=== PATIENT | male | born 1960 | race Caucasian/White ===

== ENCOUNTER 2018-09-27 00:28 | Emergency (ER) | payer SELFPAY ==
[2018-09-27 00:54] VITALS: BP 141/85
[2018-09-27] MEDS ORDERED: Ketorolac 60 MG/2 ML SDV IM ONE (00:59)
--- NOTE | 2018-09-27 01:03 | EDM.PDOC ---
ED HPI GENERAL MEDICAL PROBLEM - General Chief Complaint: Upper Extremity Injury/Pain Stated Complaint: FELL ON LEFT SHOULDER Time Seen by Provider: 09/27/18 00:57 Source of Information: Reports: Patient, RN Notes Reviewed History Limitations: Reports: No Limitations - History of Present Illness INITIAL COMMENTS - FREE TEXT/NARRATIVE: 58-year-old gentleman presents emergency department today following a fall on ice he landed on his left shoulder is now experiencing pain with any movement of his shoulder at all Left Shoulder Pain Score (Numeric/FACES): 10 - Related Data Allergies Allergy/AdvReac Type Severity Reaction Status Date / Time No Known Allergies Allergy Verified 09/27/18 00:45 Home Meds: Home Meds Hydrochlorothiazide 12.5 mg PO DAILY 10/16/15 [History] Lisinopril 20 mg PO DAILY 10/16/15 [History] Verapamil HCl [Verapamil Sr] 240 mg PO DAILY 10/16/15 [History] Acyclovir [Zovirax] 400 mg PO BID PRN 05/07/16 [History] Ibuprofen 800 mg PO ASDIRECTED 06/02/16 [History] Metoprolol Tartrate 25 mg PO BID 09/27/18 [History] Past Medical History HEENT History: Reports: Impaired Vision Cardiovascular History: Reports: CAD, Hypertension, [place] Respiratory History: Reports: Other (See Below) Other Respiratory History: positive mantoux Gastrointestinal History: Reports: GERD Musculoskeletal History: Reports: Fracture, Other (See Below) Other Musculoskeletal History: shoulder, foot, coller bone Psychiatric History: Reports: ADHD, Anxiety, Depression, Suicidal Ideation Immunologic History: Reports: Other (See Below) Other Immunologic History: hepatitis C - Infectious Disease History Infectious Disease History: Reports: Chicken Pox, Hepatitis C, Meningitis, Mumps - Past Surgical History GI Surgical History: Reports: Appendectomy Musculoskeletal Surgical History: Reports: Carpal Tunnel, Shoulder Surgery, Other (See Below) Social & Family History - Family History Family Medical History: Noncontributory - Tobacco Use Smoking Status *Q: Current Every Day Smoker Years of Tobacco use: 10 Packs/Tins Daily: 0.5 - Caffeine Use Caffeine Use: Reports: Coffee, Soda - Recreational Drug Use Recreational Drug Use: Yes Drug Use in Last 12 Months: No Recreational Drug Type: Reports: Cocaine, Marijuana/Hashish, Methamphetamine Review of Systems - Review of Systems Review Of Systems: See Below Musculoskeletal: Reports: Shoulder Pain ED EXAM, GENERAL - Physical Exam Exam: See Below Free Text/Narrative:: Examination left shoulder I don't appreciate any erythema there is no edema difficult to do an exam any movement all causes pain I don't appreciate any step -off Exam Limited By: No Limitations General Appearance: Alert, WD/WN, No Apparent Distress Respiratory/Chest: No Respiratory Distress Course - Vital Signs Last Recorded V/S: Last Vital Signs Temp 96.2 F 09/27/18 00:54 Pulse 106 H 09/27/18 00:54 Resp 20 09/27/18 00:54 BP 141/85 H 09/27/18 00:54 Pulse Ox 93 L 09/27/18 00:54 - Orders/Labs/Meds Meds: Medications Discontinued Medications Generic Name Dose Route Start Last Admin Trade Name Arsh PRN Reason Stop Dose Admin Ketorolac Tromethamine 60 mg 09/27/18 00:59 09/27/18 01:14 Toradol IM 09/27/18 01:00 60 mg ONETIME ONE Administration Departure - Departure Time of Disposition: 01:47 Disposition: Home, Self-Care 01 Condition: Fair Clinical Impression: Contusion of left shoulder Qualifiers: Encounter type: initial encounter Qualified Code(s): S40.012A - Contusion of left shoulder, initial encounter - Discharge Information Referrals: Glen Fontana Sr, MD [Primary Care Provider] - Forms: ED Department Discharge Additional Instructions: Use ibuprofen for baseline pain control, use hydrocodone for breakthrough pain, please call to the [facility] in the morning for an appointment time with orthopedics - Assessment/Plan Plan: Assessment Acuity = acute Site and laterality = contusion left shoulder Etiology = secondary to fall Manifestations = pain Location of injury = Home Lab values = x-ray reveals no acute process Plan I did review x-ray results with him he would like to see the orthopedic group at [facility] consult is set for next week provided pain medication hydrocodone 1 tab by mouth every 3-4 hours when necessary total #6 of the 5/325 tablets This note was dictated using [employer] voice recognition software please call with any questions on syntax or grammar.
--- NOTE | 2018-09-27 01:30 | CRLCR ---
INDICATION: Pain after fall COMPARISON: None available. TECHNIQUE: The right shoulder was examined with AP internal and external rotation views for a total of two views. FINDINGS: The osseous structures are in anatomic alignment without fracture or dislocation. There is anatomic alignment of the humeral head and glenoid. There is mild sclerosis of the left humeral head suggesting previous trauma or possibly avascular necrosis. There is mild deformity of the mid-distal left clavicular shaft suggesting an old, healed fracture. There is fusion of the anterior left 5th and 6th ribs, possibly from previous trauma. The visualized chest is clear. IMPRESSION: No sign of acute osseous injury, with no sign of fracture or dislocation. Sclerosis of the humeral head suggesting previous trauma or avascular necrosis. Deformity of the mid-distal left clavicular shaft from an old, healed fracture. Dictated by Matt Valero MD @ Sep 27 2018 1:26AM Signed by Dr. Matt Valero @ Sep 27 2018 1:29AM
== END 2018-09-27 01:58 | disposition home or self-care (01) ==
LOC: JP.ED 00:28
DX: S40.012A Contusion of left shoulder, initial encounter (principal); F17.210 Nicotine dependence, cigarettes, uncomplicated; I25.2 Old myocardial infarction; Z79.899 Other long term (current) drug therapy; W00.9XXA Unspecified fall due to ice and snow, initial encounter
CPT/HCPCS: 73030; 96372; 99283; J1885

== ENCOUNTER 2018-12-18 14:53 | Inpatient (IN) | payer MEDICAID ==
--- NOTE | 2018-12-18 15:38 | EDM.PDOC ---
ED HPI GENERAL MEDICAL PROBLEM - General Chief Complaint: Abdominal Pain Stated Complaint: KIDNEY PROBLEMS Time Seen by Provider: 12/18/18 15:20 Source of Information: Reports: Patient History Limitations: Reports: No Limitations - History of Present Illness INITIAL COMMENTS - FREE TEXT/NARRATIVE: 58-year-old male whose been ill for the past 3 days. Generalized malaise, weakness, decreased appetite, and muscle aches. He feels like his abdomen is distended and crampy, he has no diarrhea. Abdominal discomfort is especially bothering him in the left lower quadrant. He thought he saw blood in his urine but he has no dysuria or increased urinary frequency. No rashes. He has "a little" cough. Onset: Gradual Improves with: Reports: None Worsens with: Reports: None Associated Symptoms: Reports: Fever/Chills, Loss of Appetite, Malaise, Weakness. Denies: Shortness of Breath Left Lower Abdominal Pain Score (Numeric/FACES): 10 - Related Data Allergies Allergy/AdvReac Type Severity Reaction Status Date / Time No Known Allergies Allergy Verified 09/27/18 00:45 Home Meds: Home Meds Hydrochlorothiazide 12.5 mg PO DAILY 10/16/15 [History] Lisinopril 20 mg PO DAILY 10/16/15 [History] Verapamil HCl [Verapamil Sr] 240 mg PO DAILY 10/16/15 [History] Acyclovir [Zovirax] 400 mg PO BID PRN 05/07/16 [History] Ibuprofen 800 mg PO ASDIRECTED 06/02/16 [History] Metoprolol Tartrate 25 mg PO BID 09/27/18 [History] Past Medical History HEENT History: Reports: Impaired Vision Cardiovascular History: Reports: CAD, Hypertension, [place] Respiratory History: Reports: Other (See Below) Other Respiratory History: positive mantoux Gastrointestinal History: Reports: GERD Musculoskeletal History: Reports: Fracture, Other (See Below) Other Musculoskeletal History: shoulder, foot, coller bone Psychiatric History: Reports: ADHD, Anxiety, Depression, Suicidal Ideation Immunologic History: Reports: Other (See Below) Other Immunologic History: hepatitis C - Infectious Disease History Infectious Disease History: Reports: Chicken Pox, Hepatitis C, Meningitis, Mumps - Past Surgical History GI Surgical History: Reports: Appendectomy Musculoskeletal Surgical History: Reports: Carpal Tunnel, Shoulder Surgery, Other (See Below) Social & Family History - Family History Family Medical History: Noncontributory - Tobacco Use Smoking Status *Q: Unknown Ever Smoked - Caffeine Use Caffeine Use: Reports: Coffee, Soda ED ROS GENERAL - Review of Systems Review Of Systems: See Below Constitutional: Reports: Fever, Chills, Malaise, Decreased Appetite HEENT: Reports: No Symptoms Respiratory: Reports: Cough. Denies: Shortness of Breath, Sputum, Hemoptysis Cardiovascular: Denies: Chest Pain GI/Abdominal: Reports: Abdominal Pain (Some mild abdominal cramping, distention and persistent nausea, pain mostly in the left lower quadrant) : Reports: Hematuria (Thinks he may have passed blood in his urine but no symptoms) Musculoskeletal: Reports: Muscle Pain (Generalized muscle aches) Skin: Denies: Diaphoresis, Bruising Neurological: Reports: Dizziness ED EXAM, GENERAL - Physical Exam Exam: See Below Exam Limited By: No Limitations General Appearance: Alert, No Apparent Distress Eye Exam: Bilateral Eye: Normal Inspection Head: Atraumatic Respiratory/Chest: No Respiratory Distress, Lungs Clear Cardiovascular: Regular Rate, Rhythm, Tachycardia GI/Abdominal: Normal Bowel Sounds, Tender, Other (Mild diffuse abdominal tenderness with diffuse distention) Extremities: No: Pedal Edema Neurological: Alert, Oriented, No Motor/Sensory Deficits Psychiatric: Flat Affect Skin Exam: Warm, Dry. No: Cool, Cyanosis Course - Vital Signs Last Recorded V/S: Last Vital Signs Temp 96.2 F 12/19/18 04:00 Pulse 149 H 12/18/18 20:07 Resp 14 12/19/18 06:00 BP 105/69 12/19/18 06:00 Pulse Ox 93 L 12/19/18 06:00 - Orders/Labs/Meds Orders: Active Orders 24 hr Category Date Time Status Patient Status [ADT] Routine ADT 12/18/18 18:42 Active Ambulate [RC] QID Care 12/18/18 18:35 Active Height and Weight [RC] DAILY Care 12/18/18 18:35 Active Intake and Output [RC] QSHIFT Care 12/18/18 18:44 Active Oxygen Therapy [RC] PRN Care 12/18/18 18:42 Active VTE/DVT Education [RC] Per Unit Routine Care 12/18/18 18:42 Active Vital Signs [RC] Q2H Care 12/18/18 18:42 Active Regular Diet [DIET] Diet 12/19/18 Breakfast Active CULTURE BLOOD [BC] Urgent Lab 12/18/18 15:40 Results CULTURE BLOOD [BC] Urgent Lab 12/18/18 15:51 Results CULTURE URINE [RM] Stat Lab 12/18/18 17:27 Received Blood Culture x2 Reflex Set [OM.PC] Urgent Oth 12/18/18 15:33 Ordered Resuscitation Status Routine Resus Stat 12/18/18 18:35 Ordered Medication Orders Hydrocodone Bitart/Acetaminophen (Rock 325-5 Mg) 1 - 2 tab PO Q4H PRN PRN Reason: Pain Last Admin: 12/18/18 22:22 Dose: 2 tab Acyclovir (Zovirax) 400 mg PO BID PRN PRN Reason: Herpes outbreak Hydrochlorothiazide (Hydrochlorothiazide) 12.5 mg PO DAILY [facility] Levofloxacin/Dextrose 500 mg/ (Premix) 100 mls @ 100 mls/hr IV Q24H [facility]BAR Potassium Chloride/Sodium Chloride (Normal Saline With 20 Meq Kcl) 1,000 mls @ 125 mls/hr IV ASDIRECTED [facility] Last Admin: 12/19/18 03:34 Dose: 125 mls/hr Infusion: 12/19/18 03:34 Dose: 125 mls/hr Admin: 12/18/18 19:39 Dose: 125 mls/hr Ceftriaxone Sodium 1 gm/ (Sodium Chloride) 50 mls @ 100 mls/hr IV Q24H AKBAR Ibuprofen (Motrin) 800 mg PO Q6H PRN PRN Reason: Pain Last Admin: 12/18/18 21:03 Dose: 800 mg Lisinopril (Prinivil) 20 mg PO DAILY [facility] Metoprolol Tartrate (Lopressor) 25 mg PO BID [facility] Last Admin: 12/18/18 20:07 Dose: 25 mg [facility] Last Admin: 12/18/18 22:23 Dose: 0.4 mg Labs: Laboratory Tests 12/18/18 12/18/18 12/18/18 Range/Units 15:33 15:33 15:33 WBC 20.3 H (4.5-11.0) K/uL RBC 4.44 (4.30-5.90) M/uL Hgb 14.8 (12.0-15.0) g/dL Hct 41.6 (40.0-54.0) % MCV 94 (80-98) fL MCH 33 H (27-31) pg MCHC 36 (32-36) % Plt Count 58 L (150-400) K/uL Neut % (Auto) 86 H (36-66) % Lymph % (Auto) 4 L (24-44) % Stevens % (Auto) 10 H (2-6) % Eos % (Auto) 0 L (2-4) % Baso % (Auto) 0 (0-1) % Sodium 133 L (140-148) mmol/L Potassium 3.0 L (3.6-5.2) mmol/L Chloride 100 (100-108) mmol/L Carbon Dioxide 24 (21-32) mmol/L Anion Gap 12.0 (5.0-14.0) mmol/L BUN 17 D (7-18) mg/dL Creatinine 1.5 H (0.8-1.3) mg/dL Est Cr Clr Drug Dosing 52.37 mL/min Estimated GFR (MDRD) 48 L (>60) Glucose 178 H (74-106) mg/dL Lactic Acid 3.1 H (0.4-2.0) mmol/L Calcium 8.1 L (8.5-10.1) mg/dL Total Bilirubin 4.0 H D (0.2-1.0) mg/dL AST 51 H (15-37) U/L ALT 57 (12-78) U/L Alkaline Phosphatase 124 H (46-116) U/L Total Protein 6.8 (6.4-8.2) g/dL Albumin 2.3 L (3.4-5.0) g/dL Globulin 4.5 H (2.3-3.5) g/dL Albumin/Globulin Ratio 0.5 L (1.2-2.2) Procalcitonin 7.64 H* ng/mL Urine Color Urine Appearance Urine pH (4.5-8.0) Ur Specific [place] (1.008-1.030) Urine Protein (NEGATIVE) mg/dL Urine Glucose (UA) (NEGATIVE) mg/dL Urine Ketones (NEGATIVE) mg/dL Urine Occult Blood (NEGATIVE) Urine Nitrite (NEGAITVE) Urine Bilirubin (NEGATIVE) Urine Urobilinogen (NORMAL) mg/dL Ur Leukocyte Esterase (NEGATIVE) Urine RBC (0-5) Urine WBC (0-5) Ur Epithelial Cells Amorphous Sediment Urine Bacteria Urine Mucus Urine Opiates Screen (NEGATIVE) Ur Oxycodone Screen (NEGATIVE) Urine Methadone Screen (NEGATIVE) Ur Propoxyphene Screen (NEGATIVE) Ur Barbiturates Screen (NEGATIVE) Ur Tricyclics Screen (NEGATIVE) Ur Phencyclidine Scrn (NEGATIVE) Ur Amphetamine Screen (NEGATIVE) U Methamphetamines Scrn (NEGATIVE) Urine MDMA Screen (NEGATIVE) U Benzodiazepines Scrn (NEGATIVE) U Cocaine Metab Screen (NEGATIVE) U Marijuana (THC) Screen (NEGATIVE) 12/18/18 12/18/18 Range/Units 15:33 15:49 WBC (4.5-11.0) K/uL RBC (4.30-5.90) M/uL Hgb (12.0-15.0) g/dL Hct (40.0-54.0) % MCV (80-98) fL MCH (27-31) pg MCHC (32-36) % Plt Count (150-400) K/uL Neut % (Auto) (36-66) % Lymph % (Auto) (24-44) % Stevens % (Auto) (2-6) % Eos % (Auto) (2-4) % Baso % (Auto) (0-1) % Sodium (140-148) mmol/L Potassium (3.6-5.2) mmol/L Chloride (100-108) mmol/L Carbon Dioxide (21-32) mmol/L Anion Gap (5.0-14.0) mmol/L BUN (7-18) mg/dL Creatinine (0.8-1.3) mg/dL Est Cr Clr Drug Dosing mL/min Estimated GFR (MDRD) (>60) Glucose (74-106) mg/dL Lactic Acid (0.4-2.0) mmol/L Calcium (8.5-10.1) mg/dL Total Bilirubin (0.2-1.0) mg/dL AST (15-37) U/L ALT (12-78) U/L Alkaline Phosphatase (46-116) U/L Total Protein (6.4-8.2) g/dL Albumin (3.4-5.0) g/dL Globulin (2.3-3.5) g/dL Albumin/Globulin Ratio (1.2-2.2) Procalcitonin ng/mL Urine Color Mclean Urine Appearance Slightly cloudy Urine pH 6.0 (4.5-8.0) Ur Specific [place] 1.010 (1.008-1.030) Urine Protein 30 H (NEGATIVE) mg/dL Urine Glucose (UA) Normal (NEGATIVE) mg/dL Urine Ketones Negative (NEGATIVE) mg/dL Urine Occult Blood Large (NEGATIVE) Urine Nitrite Negative (NEGAITVE) Urine Bilirubin Small (NEGATIVE) Urine Urobilinogen 1 (NORMAL) mg/dL Ur Leukocyte Esterase Negative (NEGATIVE) Urine RBC 30-40 H (0-5) Urine WBC 0-5 (0-5) Ur Epithelial Cells Not seen Amorphous Sediment Rare Urine Bacteria Few Urine Mucus Not seen Urine Opiates Screen Negative (NEGATIVE) Ur Oxycodone Screen Negative (NEGATIVE) Urine Methadone Screen Negative (NEGATIVE) Ur Propoxyphene Screen Negative (NEGATIVE) Ur Barbiturates Screen Negative (NEGATIVE) Ur Tricyclics Screen Negative (NEGATIVE) Ur Phencyclidine Scrn Negative (NEGATIVE) Ur Amphetamine Screen Negative (NEGATIVE) U Methamphetamines Scrn Presumptive positive H (NEGATIVE) Urine MDMA Screen Negative (NEGATIVE) U Benzodiazepines Scrn Negative (NEGATIVE) U Cocaine Metab Screen Negative (NEGATIVE) U Marijuana (THC) Screen Presumptive positive H (NEGATIVE) Meds: Medications Generic Name Dose Route Start Last Admin Trade Name Freq PRN Reason Stop Dose Admin Hydrocodone Bitart/Acetaminophen 1 - 2 tab 12/18/18 22:07 12/18/18 22:22 Rock 325-5 Mg PO 2 tab Q4H PRN Administration Pain Acyclovir 400 mg 12/18/18 19:08 Zovirax PO BID PRN Herpes outbreak Hydrochlorothiazide 12.5 mg 12/19/18 09:00 Hydrochlorothiazide PO DAILY [facility] Levofloxacin/Dextrose 500 mg/ 100 mls @ 100 mls/hr 12/19/18 16:00 Premix IV Q24H [facility] Potassium Chloride/Sodium Chloride 1,000 mls @ 125 mls/hr 12/18/18 19:00 03:34 Normal Saline With 20 Meq Kcl IV 125 mls/hr ASDIRECTED AKBAR Administration Ceftriaxone Sodium 1 gm/ 50 mls @ 100 mls/hr 12/19/18 17:00 Sodium Chloride IV Q24H [facility] Ibuprofen 800 mg 12/18/18 20:13 12/18/18 21:03 Motrin PO 800 mg Q6H PRN Administration Pain Lisinopril 20 mg 12/19/18 09:00 Prinivil PO DAILY [facility] Metoprolol Tartrate 25 mg 12/18/18 21:00 12/18/18 20:07 Lopressor PO 25 mg BID [facility] Administration Tamsulosin HCl 0.4 mg 12/18/18 22:15 12/18/18 22:23 Flomax PO 0.4 mg BIDPC AKBAR Administration Discontinued Medications Generic Name Dose Route Start Last Admin Trade Name Freq PRN Reason Stop Dose Admin Sodium Chloride 1,000 mls @ 1,000 mls/hr 12/18/18 15:45 12/18/18 15:41 Normal Saline IV 1,000 mls/hr ASDIRECTED AKBAR Administration Levofloxacin/Dextrose 750 mg/ 150 mls @ 100 mls/hr 12/18/18 16:00 12/18/18 16 :14 Premix IV 12/18/18 17:29 100 mls/hr ONETIME ONE Administration Ceftriaxone Sodium 1 gm/ 50 mls @ 100 mls/hr 12/18/18 16:15 12/18/18 17:33 Sodium Chloride IV 12/18/18 16:44 100 mls/hr ONETIME ONE Administration Sodium Chloride 1,000 mls @ 125 mls/hr 12/18/18 17:45 12/18/18 17:56 Normal Saline IV 1,000 mls/hr ASDIRECTED AKBAR Administration Ceftriaxone Sodium 1 gm/ 50 mls @ 100 mls/hr 12/18/18 17:00 Sodium Chloride IV Q24H [facility]BAR Ibuprofen 800 mg 12/18/18 19:00 Motrin PO ASDIRECTED [facility] Tamsulosin HCl 0.4 mg 12/19/18 08:00 Flomax PO BIDPC [facility] - Re-Assessments/Exams Free Text/Narrative Re-Assessment/Exam: 12/18/18 15:53 Patient is feverish, weak, tachycardic and meets criteria for possible sepsis. An IV was started and he was given 1 L of normal saline bolus, like cultures, lactic acid, pro-calcitonin, CBC and CMP were obtained. A urine was collected by clean catch, UA and urine drug screen were performed. After the blood cultures were obtained, 750 mg of Levaquin and 1 g Rocephin were given IV. 12/18/18 17:25 IMPRESSION: 8 millimeter calculi proximal to mid left ureter with moderate left hydronephrosis. Splenomegaly. Possible upper abdominal portal venous collaterals. Trace left pleural effusion with adjacent atelectasis. Small amount of fluid in right upper and right lower quadrants and pelvis. Cholelithiasis. 12/18/18 17:40 Dr. Fontana, patient's primary provider was called and informed of his hydronephrosis, left-sided abdominal pain and likely developing a UTI and sepsis. He agreed to see the patient for admission. A second bag of normal saline was hung. Urine culture was obtained. Departure - Departure Time of Disposition: 19:48 Disposition: Admitted As Inpatient 64 Clinical Impression: Sepsis due to urinary tract infection, Hydronephrosis of left kidney, Nephrolithiasis, Methamphetamine abuse - Discharge Information - My Orders Last 24 Hours: My Active Orders 12/18/18 15:33 Blood Culture x2 Reflex Set [OM.PC] Urgent 12/18/18 15:40 CULTURE BLOOD [BC] Urgent 12/18/18 15:51 CULTURE BLOOD [BC] Urgent 12/18/18 17:27 CULTURE URINE [RM] Stat - Assessment/Plan Last 24 Hours: My Active Orders 12/18/18 15:33 Blood Culture x2 Reflex Set [OM.PC] Urgent 12/18/18 15:40 CULTURE BLOOD [BC] Urgent 12/18/18 15:51 CULTURE BLOOD [BC] Urgent 12/18/18 17:27 CULTURE URINE [RM] Stat
[2018-12-18] MEDS ORDERED: Sodium Chloride 0.9% 1,000 ML IV SCH ×2 (15:45→17:45)
[2018-12-18] MEDS ORDERED: Levofloxacin/Dextrose 5%-Water 750 MG in Premix Bag 1 BAG IV ONE ×2 (15:54→16:00)
[2018-12-18] MEDS ORDERED: cefTRIAXone 1 GM in Sodium Chloride 0.9% 50 ML IV ONE ×2 (15:54→16:15)
--- NOTE | 2018-12-18 16:26 | CR ---
CHEST: Portable CLINICAL HISTORY:Cough COMPARISON:2016 FINDINGS: Heart size and pulmonary vascularity are normal. There is arthroscopic and widening in the aorta. There is some volume loss at the left lung base when compared to prior study. Impression: Minimal patchy density at the left lung base with left lung base volume loss. This may represent atelectasis. Short-term follow-up chest x-ray is recommended when patient's condition allows
[2018-12-18] MEDS ORDERED: cefTRIAXone 1 GM in Sodium Chloride 0.9% 50 ML IV SCH ×2 (17:00→19:00)
--- NOTE | 2018-12-18 17:11 | CRLCT ---
INDICATION: Abdominal pain, fever TECHNIQUE: CT abdomen and pelvis without contrast. COMPARISON: None FINDINGS: Lower chest: Trace left pleural effusion with adjacent atelectasis. Liver: Unremarkable. Spleen: Splenomegaly measuring up to 18.5 centimeters. Pancreas: Unremarkable. Gallbladder and bile ducts: Cholelithiasis. Kidneys: 8 millimeter calculi proximal to mid left ureter with moderate left hydronephrosis. Adrenal glands: Unremarkable. GI tract: Unremarkable. Appendix is not visualized. Vascular structures: Unremarkable. Lymph nodes: Unremarkable. Miscellaneous: Possible upper abdominal collaterals. No free air. Free fluid in the pelvis and right upper and lower quadrants Pelvic Organs: Unremarkable. Bones: Unremarkable for age. IMPRESSION: 8 millimeter calculi proximal to mid left ureter with moderate left hydronephrosis. Splenomegaly. Possible upper abdominal portal venous collaterals. Trace left pleural effusion with adjacent atelectasis. Small amount of fluid in right upper and right lower quadrants and pelvis. Cholelithiasis. Dictated by Melo Paez MD @ 12/18/2018 5:08:40 PM Please note that all CT scans at this facility use dose modulation, iterative reconstruction, and/or weight-based dosing when appropriate to reduce radiation dose to as low as reasonably achievable. Dictated by: Melo Paez MD @ 12/18/2018 17:08:50 (Electronically Signed)
--- NOTE | 2018-12-18 18:25 | PCM.HP ---
H&P History of Present Illness - General Date of Service: 12/18/18 Source of Information: Patient, EMS Notes Reviewed History Limitations: Reports: No Limitations - History of Present Illness Initial Comments - Free Text/Narative: He started to have abdominal pain 3 days ago then relieved. Last night the pain became worse in the left side of the abd. and progresses. Pain he said is a 10/10. Pain is sharp and cramping in character. Onset of Symptoms: Reports: Sudden Symptom Onset Date: 12/16/18 Location: Reports: Abdomen Left Lower Abdominal Pain Score (Numeric/FACES): 10 - Related Data Allergies/Adverse Reactions: Allergies Allergy/AdvReac Type Severity Reaction Status Date / Time No Known Allergies Allergy Verified 09/27/18 00:45 Home Medications: Home Meds Hydrochlorothiazide 12.5 mg PO DAILY 10/16/15 [History] Lisinopril 20 mg PO DAILY 10/16/15 [History] Verapamil HCl [Verapamil Sr] 240 mg PO DAILY 10/16/15 [History] Acyclovir [Zovirax] 400 mg PO BID PRN 05/07/16 [History] Ibuprofen 800 mg PO ASDIRECTED 06/02/16 [History] Metoprolol Tartrate 25 mg PO BID 09/27/18 [History] Past Medical History HEENT History: Reports: Impaired Vision Cardiovascular History: Reports: CAD, Hypertension, [place] Respiratory History: Reports: Other (See Below) Other Respiratory History: positive mantoux Gastrointestinal History: Reports: GERD Musculoskeletal History: Reports: Fracture, Other (See Below) Other Musculoskeletal History: shoulder, foot, coller bone Psychiatric History: Reports: ADHD, Anxiety, Depression, Suicidal Ideation Immunologic History: Reports: Other (See Below) Other Immunologic History: hepatitis C - Infectious Disease History Infectious Disease History: Reports: Chicken Pox, Hepatitis C, Meningitis, Mumps - Past Surgical History GI Surgical History: Reports: Appendectomy Musculoskeletal Surgical History: Reports: Carpal Tunnel, Shoulder Surgery, Other (See Below) Social & Family History - Family History Family Medical History: Noncontributory - Tobacco Use Smoking Status *Q: Unknown Ever Smoked - Caffeine Use Caffeine Use: Reports: Coffee, Soda H&P Review of Systems - Review of Systems: Review Of Systems: See Below General: Reports: Fever, Chills, Weakness, Fatigue, Decreased Appetite HEENT: Reports: No Symptoms Pulmonary: Reports: No Symptoms Cardiovascular: Reports: No Symptoms Gastrointestinal: Reports: Diarrhea, Decreased Appetite, Distension Genitourinary: Reports: Frequency, Urgency, Flank Pain Musculoskeletal: Reports: No Symptoms Skin: Reports: No Symptoms Psychiatric: Reports: No Symptoms Neurological: Reports: No Symptoms, Difficulty Walking, Weakness, Gait Disturbance Exam - Exam Exam: See Below - Vital Signs Vital Signs: Last Vital Signs Temp 101.7 F H 12/18/18 15:18 Pulse 119 H 12/18/18 16:15 Resp 26 H 12/18/18 16:15 BP 138/89 12/18/18 16:15 Pulse Ox 96 12/18/18 16:15 Weight: 231 lb 0.711 oz - Exam General: Alert, Oriented, Cooperative, Moderate Distress HEENT: PERRLA, Hearing Intact, Mucosa Moist & [place], Nares Patent, Normal Nasal Septum, Posterior Pharynx Clear, Conjunctiva Clear, EOMI, EACs Clear, TMs Clear Neck: Supple, Trachea Midline, 2 Lungs: Clear to Auscultation, Normal Respiratory Effort Cardiovascular: Regular Rate, Regular Rhythm GI/Abdominal Exam: Distended, Guarding Back Exam: Normal Inspection, Full Range of Motion, NT Extremities: Normal Inspection, Normal Range of Motion, Non-Tender, No Pedal Edema, Normal Capillary Refill Peripheral Pulses: 1+: Brachial (L), Brachial (R), Radial (L), Radial (R) Skin: Warm, Dry, Moist Neurological: Cranial Nerves Intact, Reflexes Equal Bilateral, Strength Equal Bilateral DTR: 1+: Bicep (L), Bicep (R) Psychiatric: Alert, Depressed - Patient Data Lab Results Last 24 hrs: Laboratory Results - last 24 hr 12/18/18 12/18/18 12/18/18 Range/Units 15:33 15:33 15:33 WBC 20.3 H (4.5-11.0) K/uL RBC 4.44 (4.30-5.90) M/uL Hgb 14.8 (12.0-15.0) g/dL Hct 41.6 (40.0-54.0) % MCV 94 (80-98) fL MCH 33 H (27-31) pg MCHC 36 (32-36) % Plt Count 58 L (150-400) K/uL Neut % (Auto) 86 H (36-66) % Lymph % (Auto) 4 L (24-44) % [place] % (Auto) 10 H (2-6) % Eos % (Auto) 0 L (2-4) % Baso % (Auto) 0 (0-1) % Sodium 133 L (140-148) mmol/L Potassium 3.0 L (3.6-5.2) mmol/L Chloride 100 (100-108) mmol/L Carbon Dioxide 24 (21-32) mmol/L Anion Gap 12.0 (5.0-14.0) mmol/L BUN 17 D (7-18) mg/dL Creatinine 1.5 H (0.8-1.3) mg/dL Est Cr Clr Drug Dosing 52.37 mL/min Estimated GFR (MDRD) 48 L (>60) Glucose 178 H (74-106) mg/dL Lactic Acid 3.1 H (0.4-2.0) mmol/L Calcium 8.1 L (8.5-10.1) mg/dL Total Bilirubin 4.0 H D (0.2-1.0) mg/dL AST 51 H (15-37) U/L ALT 57 (12-78) U/L Alkaline Phosphatase 124 H (46-116) U/L Total Protein 6.8 (6.4-8.2) g/dL Albumin 2.3 L (3.4-5.0) g/dL Globulin 4.5 H (2.3-3.5) g/dL Albumin/Globulin Ratio 0.5 L (1.2-2.2) Procalcitonin 7.64 H* ng/mL Urine Color Urine Appearance Urine pH (4.5-8.0) Ur Specific [place] (1.008-1.030) Urine Protein (NEGATIVE) mg/dL Urine Glucose (UA) (NEGATIVE) mg/dL Urine Ketones (NEGATIVE) mg/dL Urine Occult Blood (NEGATIVE) Urine Nitrite (NEGAITVE) Urine Bilirubin (NEGATIVE) Urine Urobilinogen (NORMAL) mg/dL Ur Leukocyte Esterase (NEGATIVE) Urine RBC (0-5) Urine WBC (0-5) Ur Epithelial Cells Amorphous Sediment Urine Bacteria Urine Mucus Urine Opiates Screen (NEGATIVE) Ur Oxycodone Screen (NEGATIVE) Urine Methadone Screen (NEGATIVE) Ur Propoxyphene Screen (NEGATIVE) Ur Barbiturates Screen (NEGATIVE) Ur Tricyclics Screen (NEGATIVE) Ur Phencyclidine Scrn (NEGATIVE) Ur Amphetamine Screen (NEGATIVE) U Methamphetamines Scrn (NEGATIVE) Urine MDMA Screen (NEGATIVE) U Benzodiazepines Scrn (NEGATIVE) U Cocaine Metab Screen (NEGATIVE) U Marijuana (THC) Screen (NEGATIVE) 12/18/18 12/18/18 Range/Units 15:33 15:49 WBC (4.5-11.0) K/uL RBC (4.30-5.90) M/uL Hgb (12.0-15.0) g/dL Hct (40.0-54.0) % MCV (80-98) fL MCH (27-31) pg MCHC (32-36) % Plt Count (150-400) K/uL Neut % (Auto) (36-66) % Lymph % (Auto) (24-44) % [place] % (Auto) (2-6) % Eos % (Auto) (2-4) % Baso % (Auto) (0-1) % Sodium (140-148) mmol/L Potassium (3.6-5.2) mmol/L Chloride (100-108) mmol/L Carbon Dioxide (21-32) mmol/L Anion Gap (5.0-14.0) mmol/L BUN (7-18) mg/dL Creatinine (0.8-1.3) mg/dL Est Cr Clr Drug Dosing mL/min Estimated GFR (MDRD) (>60) Glucose (74-106) mg/dL Lactic Acid (0.4-2.0) mmol/L Calcium (8.5-10.1) mg/dL Total Bilirubin (0.2-1.0) mg/dL AST (15-37) U/L ALT (12-78) U/L Alkaline Phosphatase (46-116) U/L Total Protein (6.4-8.2) g/dL Albumin (3.4-5.0) g/dL Globulin (2.3-3.5) g/dL Albumin/Globulin Ratio (1.2-2.2) Procalcitonin ng/mL Urine Color [place] Urine Appearance Slightly cloudy Urine pH 6.0 (4.5-8.0) Ur Specific [place] 1.010 (1.008-1.030) Urine Protein 30 H (NEGATIVE) mg/dL Urine Glucose (UA) Normal (NEGATIVE) mg/dL Urine Ketones Negative (NEGATIVE) mg/dL Urine Occult Blood Large (NEGATIVE) Urine Nitrite Negative (NEGAITVE) Urine Bilirubin Small (NEGATIVE) Urine Urobilinogen 1 (NORMAL) mg/dL Ur Leukocyte Esterase Negative (NEGATIVE) Urine RBC 30-40 H (0-5) Urine WBC 0-5 (0-5) Ur Epithelial Cells Not seen Amorphous Sediment Rare Urine Bacteria Few Urine Mucus Not seen Urine Opiates Screen Negative (NEGATIVE) Ur Oxycodone Screen Negative (NEGATIVE) Urine Methadone Screen Negative (NEGATIVE) Ur Propoxyphene Screen Negative (NEGATIVE) Ur Barbiturates Screen Negative (NEGATIVE) Ur Tricyclics Screen Negative (NEGATIVE) Ur Phencyclidine Scrn Negative (NEGATIVE) Ur Amphetamine Screen Negative (NEGATIVE) U Methamphetamines Scrn Presumptive positive H (NEGATIVE) Urine MDMA Screen Negative (NEGATIVE) U Benzodiazepines Scrn Negative (NEGATIVE) U Cocaine Metab Screen Negative (NEGATIVE) U Marijuana (THC) Screen Presumptive positive H (NEGATIVE) Result Diagrams: 12/19/18 05:00 12/19/18 08:32 Problem List Initiated/Reviewed/Updated: Yes Orders Last 24hrs: Active Orders 24 hr Category Date Time Status CULTURE BLOOD [BC] Urgent Lab 12/18/18 15:40 Received CULTURE BLOOD [BC] Urgent Lab 12/18/18 15:51 Received CULTURE URINE [RM] Stat Lab 12/18/18 17:27 Received Sodium Chloride 0.9% [Normal Saline] 1,000 ml Med 12/18/18 15:45 Active IV ASDIRECTED Sodium Chloride 0.9% [Normal Saline] 1,000 ml Med 12/18/18 17:45 Active IV ASDIRECTED Blood Culture x2 Reflex Set [OM.PC] Urgent Oth 12/18/18 15:33 Ordered Medication Orders Sodium Chloride (Normal Saline) 1,000 mls @ 1,000 mls/hr IV ASDIRECTED [facility] Last Admin: 12/18/18 15:41 Dose: 1,000 mls/hr Sodium Chloride (Normal Saline) 1,000 mls @ 1,000 mls/hr IV ASDIRECTED [facility] Last Admin: 12/18/18 17:56 Dose: 1,000 mls/hr Assessment/Plan Comment:: Assessment/Plan: #1. Kidney stone with Septicemia. (Left) mid ureter with moderate hydronephroses. Will start Flomax. Also give Rocephin and Levaquin and Rocephin. #2. HTN: Continue with Calan and Lisinopril and Lasix when BP is elevated. #3. Herpes genitalis: Stable #4. Thrombocytopenia: Chronic #5., Depression Stable on Duloxetine 30 mg daily #6. GERD: Continue with Omeprazole #7. Drug addiction-Meth and THC
[2018-12-18] MEDS ORDERED: Ibuprofen 800 MG Tab PO SCH (19:00)
[2018-12-18] MEDS ORDERED: Acyclovir 200 MG Cap PO PRN (19:08)
[2018-12-18] MEDS: NS + KCl 20mEq/L 1,000 ML IV SCH (19:39)
[2018-12-18] MEDS: Metoprolol Tartrate 25 MG Tab PO SCH (20:07)
[2018-12-18] MEDS: Ibuprofen 800 MG Tab PO PRN (21:03)
[2018-12-18] MEDS ORDERED: Acetaminophen/HYDROcodone 325-5 MG Tab PO PRN (22:07)
[2018-12-18] MEDS: Tamsulosin 0.4 MG Cap.ER PO SCH (22:23)
[2018-12-19] MEDS: NS + KCl 20mEq/L 1,000 ML IV SCH ×3 (03:34→21:52)
[2018-12-19] MEDS ORDERED: Tamsulosin 0.4 MG Cap.ER PO SCH ×2 (08:00)
[2018-12-19] MEDS: Verapamil 120 MG Tab.ER PO SCH ×2 (08:56→12:15)
[2018-12-19] MEDS ORDERED: VERAPAMIL HCL 240 MG PO SCH (09:00)
[2018-12-19] MEDS: Metoprolol Tartrate 25 MG Tab PO SCH ×2 (09:04→12:18)
[2018-12-19] MEDS: Hydrochlorothiazide 12.5 MG Cap PO SCH ×2 (09:05→12:15)
[2018-12-19] MEDS: Lisinopril 10 MG Tab PO SCH ×2 (09:05→12:16)
[2018-12-19] MEDS: Tamsulosin 0.4 MG Cap.ER PO SCH ×2 (09:06→17:29)
--- NOTE | 2018-12-19 09:40 | CRLCR ---
INDICATION: Left ureteral stone on CT TECHNIQUE: Supine abdomen and pelvis COMPARISON: CT abdomen pelvis dated 12/18/2018 FINDINGS: The 8 x 6 mm calculus remains in stable position within the lower left ureter overlying the left transverse process of L4. The bowel gas pattern appears normal. There is no evidence of free air or soft tissue mass effect. IMPRESSION: The 8 x 6 mm calculus remains in stable position within the lower left ureter overlying the left transverse process of L4. Dictated by Soren Veliz MD @ Dec 19 2018 9:36AM Signed by Dr. Soren Veliz @ Dec 19 2018 9:39AM
[2018-12-19] MEDS: Potassium Chloride 20 MEQ Tab.ER PO SCH ×2 (11:31→17:29)
[2018-12-19] MEDS: Ibuprofen 800 MG Tab PO PRN ×2 (11:31→17:39)
--- NOTE | 2018-12-19 12:52 | CRLUS ---
CLINICAL HISTORY: COMPARISON: CT abdomen pelvis dated 12/18/2018 TECHNIQUE: 2D webster scale imaging and color Doppler analysis was performed of the abdomen. FINDINGS: Sonographic imaging demonstrates a coarse hepatic echotexture and nodular contour of the liver. There is hypertrophy of the left hepatic lobe. There is no evidence of a focal mass. Changes would be consistent with cirrhotic liver disease. There is a small amount of ascites. The spleen is enlarged measuring 22 x 20 x 9 cm. The pancreas and aorta are obscured by bowel gas. The gallbladder is of normal size and there is a 11 mm stone within the neck of the gallbladder. However there is no significant edema within the gallbladder wall which measures 2 mm in thickness. The common bile duct measures for mm in size within the jolene hepatis. The kidneys appear symmetric. The right kidney measures 11.2 cm in length and the left kidney measures 12.5 cm. There is no evidence of hydronephrosis within the left kidney. IMPRESSION: Cirrhotic liver and evidence of portal hypertension with splenomegaly and small amount of ascites. Stone noted within the gallbladder neck but no evidence of acute cholecystitis or biliary duct dilatation. Dictated by Soren Veliz MD @ 12/19/2018 12:49:35 PM Dictated by: Soren Veliz MD @ 12/19/2018 12:51:11 (Electronically Signed)
[2018-12-19] MEDS ORDERED: Levofloxacin/Dextrose 5%-Water 500 MG in Premix Bag 1 BAG IV SCH (16:00)
[2018-12-19] MEDS ORDERED: Levofloxacin/Dextrose 5%-Water 750 MG in Premix Bag 1 BAG IV SCH (16:00)
[2018-12-19] MEDS ORDERED: cefTRIAXone 1 GM in Sodium Chloride 0.9% 50 ML IV SCH (17:00)
[2018-12-19] MEDS ORDERED: Sodium Chloride 0.9% 500 ML IV ONE ×3 (18:09→19:35)
--- NOTE | 2018-12-19 19:44 | PCM.PN ---
- General Info Date of Service: 12/19/18 Functional Status: Reports: Pain Controlled - Review of Systems General: Reports: Weakness, Fatigue HEENT: Reports: No Symptoms Pulmonary: Reports: No Symptoms Cardiovascular: Reports: No Symptoms Gastrointestinal: Reports: No Symptoms Genitourinary: Reports: No Symptoms Musculoskeletal: Reports: No Symptoms Skin: Reports: No Symptoms Neurological: Reports: Difficulty Walking, Weakness, Gait Disturbance Psychiatric: Reports: Depression - Patient Data Vitals - Most Recent: Last Vital Signs Temp 96.9 F 12/19/18 18:44 Pulse 68 12/19/18 19:13 Resp 19 12/19/18 19:13 BP 88/55 L 12/19/18 19:13 Pulse Ox 100 12/19/18 19:13 Weight - Most Recent: 231 lb 0.711 oz I&O - Last 24 Hours: Intake & Output 12/19/18 12/19/18 12/19/18 06:59 14:59 22:59 Intake Total 1371 4534 Output Total 825 580 280 Balance 546 -580 4254 Lab Results Last 24 Hours: Laboratory Results - last 24 hr 12/19/18 12/19/18 Range/Units 05:00 08:32 WBC 14.3 H (4.5-11.0) K/uL RBC 4.49 (4.30-5.90) M/uL Hgb 14.7 (12.0-15.0) g/dL Hct 42.5 (40.0-54.0) % MCV 95 (80-98) fL MCH 33 H (27-31) pg MCHC 35 (32-36) % Plt Count 51 L (150-400) K/uL Neut % (Auto) 83 H (36-66) % Lymph % (Auto) 7 L (24-44) % [place] % (Auto) 10 H (2-6) % Eos % (Auto) 0 L (2-4) % Baso % (Auto) 0 (0-1) % Sodium 139 L (140-148) mmol/L Potassium 3.2 L (3.6-5.2) mmol/L Chloride 106 (100-108) mmol/L Carbon Dioxide 22 (21-32) mmol/L Anion Gap 14.2 H (5.0-14.0) mmol/L BUN 21 H (7-18) mg/dL Creatinine 1.3 (0.8-1.3) mg/dL Est Cr Clr Drug Dosing 60.43 mL/min Estimated GFR (MDRD) 56 L (>60) Glucose 115 H (74-106) mg/dL Calcium 8.3 L (8.5-10.1) mg/dL Jace Results Last 24 Hours: Microbiology 12/18/18 17:27 Urine Culture - Preliminary Urine, Clean Catch 12/18/18 15:51 Aerobic Blood Culture - Preliminary Blood - Arm, Left Gram Negative Rods Anaerobic Blood Culture - Preliminary Gram Negative Rods 12/18/18 15:40 Aerobic Blood Culture - Preliminary Blood - Venous - Iv Start Gram Negative Rods Anaerobic Blood Culture - Preliminary Gram Negative Rods Med Orders - Current: Current Medications Hydrocodone Bitart/Acetaminophen ([place] 325-5 Mg) 1 - 2 tab PO Q4H PRN PRN Reason: Pain Last Admin: 12/18/18 22:22 Dose: 2 tab Acyclovir (Zovirax) 400 mg PO BID PRN PRN Reason: Herpes outbreak Hydrochlorothiazide (Hydrochlorothiazide) 12.5 mg PO DAILY [facility] Last Admin: 12/19/18 12:15 Dose: 12.5 mg Potassium Chloride/Sodium Chloride (Normal Saline With 20 Meq Kcl) 1,000 mls @ 125 mls/hr IV ASDIRECTED [facility] Last Admin: 12/19/18 11:57 Dose: 125 mls/hr Ceftriaxone Sodium 1 gm/ (Sodium Chloride) 50 mls @ 100 mls/hr IV Q24H [facility] Last Admin: 12/19/18 17:27 Dose: 100 mls/hr Levofloxacin/Dextrose 750 mg/ (Premix) 150 mls @ 100 mls/hr IV Q24H [facility] Last Admin: 12/19/18 15:46 Dose: 100 mls/hr Ibuprofen (Motrin) 800 mg PO Q6H PRN PRN Reason: Pain Last Admin: 12/19/18 17:39 Dose: 800 mg Lisinopril (Prinivil) 20 mg PO DAILY [facility] Last Admin: 12/19/18 12:16 Dose: 20 mg Metoprolol Tartrate (Lopressor) 25 mg PO BID [facility] Last Admin: 12/19/18 12:18 Dose: Not Given Potassium Chloride (Klor-Con M20) 20 meq PO BIDMEALS [facility] Last Admin: 06/18/19 17:29 Dose: 20 meq Tamsulosin HCl (Flomax) 0.4 mg PO BIDPC [facility] Last Admin: 12/19/18 17:29 Dose: 0.4 mg Verapamil HCl (Calan Sr) 240 mg PO DAILY [facility] Last Admin: 12/19/18 12:15 Dose: 240 mg Discontinued Medications Sodium Chloride (Normal Saline) 1,000 mls @ 1,000 mls/hr IV ASDIRECTED [facility] Last Admin: 12/18/18 15:41 Dose: 1,000 mls/hr Levofloxacin/Dextrose 750 mg/ (Premix) 150 mls @ 100 mls/hr IV ONETIME ONE Stop: 12/18/18 17:29 Last Admin: 12/18/18 16:14 Dose: 100 mls/hr Ceftriaxone Sodium 1 gm/ (Sodium Chloride) 50 mls @ 100 mls/hr IV ONETIME ONE Stop: 12/18/18 16:44 Last Admin: 12/18/18 17:33 Dose: 100 mls/hr Sodium Chloride (Normal Saline) 1,000 mls @ 125 mls/hr IV ASDIRECTED [facility] Last Admin: 12/18/18 17:56 Dose: 1,000 mls/hr Ceftriaxone Sodium 1 gm/ (Sodium Chloride) 50 mls @ 100 mls/hr IV Q24H [facility] Last Admin: 12/19/18 19:26 Dose: Not Given Sodium Chloride (Normal Saline) 500 mls @ 999 mls/hr IV .BOLUS ONE Stop: 12/19/18 18:39 Last Admin: 12/19/18 18:28 Dose: 999 mls/hr Sodium Chloride (Normal Saline) 500 mls @ 999 mls/hr IV .BOLUS ONE Stop: 12/19/18 18:48 Last Admin: 12/19/18 18:32 Dose: 999 mls/hr Ibuprofen (Motrin) 800 mg PO ASDIRECTED [facility] Tamsulosin HCl (Flomax) 0.4 mg PO [facility]ID[facility] - Exam General: Cooperative, Moderate Distress HEENT: Pupils Equal, Pupils Reactive, EOMI, Mucous Membr. Moist/[place] Neck: Supple Lungs: Clear to Auscultation, Normal Respiratory Effort Cardiovascular: Regular Rate, Regular Rhythm GI/Abdominal Exam: Tender Extremities: Normal Inspection, Normal Range of Motion, Non-Tender, No Pedal Edema, Normal Capillary Refill Peripheral Pulses: 1+: Radial (L), Radial (R) Skin: Warm Psy/Mental Status: Depressed - Problem List Review Problem List Initiated/Reviewed/Updated: Yes - My Orders Last 24 Hours: My Active Orders 12/18/18 18:42 Patient Status [ADT] Routine Oxygen Therapy [RC] PRN VTE/DVT Education [RC] Per Unit Routine Vital Signs [RC] Q2H 12/18/18 18:44 Intake and Output [RC] QSHIFT 12/18/18 18:58 Communication Order [RC] Click to Edit 12/18/18 19:00 NS + KCl 20mEq/L [Normal Saline with 20 mEq KCl] 1,000 ml IV ASDIRECTED 12/18/18 19:08 Acyclovir [Zovirax] 400 mg PO BID PRN 12/18/18 20:13 Ibuprofen [Motrin] 800 mg PO Q6H PRN 12/18/18 21:00 Metoprolol Tartrate [Lopressor] 25 mg PO BID 12/18/18 22:07 Acetaminophen/HYDROcodone [[place] 325-5 MG] 1 - 2 tab PO Q4H PRN 12/18/18 22:15 Tamsulosin [Flomax] 0.4 mg PO BIDPC 12/19/18 09:00 Lisinopril [Prinivil] 20 mg PO DAILY Verapamil [Calan SR] 240 mg PO DAILY hydroCHLOROthiazide 12.5 mg PO DAILY 12/19/18 10:30 Potassium Chloride [Klor-Con M20] 20 meq PO BIDMEALS 12/19/18 13:46 SCD [Sequential Compression Device] [OM.PC] Routine 12/19/18 17:00 cefTRIAXone [Rocephin] 1 gm Sodium Chloride 0.9% [Normal Saline] 50 ml IV Q24H 12/19/18 Breakfast Regular Diet [DIET] 12/20/18 05:00 CBC WITH AUTO DIFF [HEME] Routine COMPREHENSIVE METABOLIC PN,CMP [CHEM] Routine - Plan Plan:: Assessment/Plan: #1. Kidney stone with Septicemia. (Left) mid ureter with moderate hydronephroses. On Flomax and continue with Rocephin and Levaquin. There is reported to have gram Neg bacteria. ID's are pending. WBC dropped to 14,000 and K up to 3.2. Extra K has been given. #2. HTN: This morning his BP was low then climbed to 140's so gave Calan which dropped his BP and converted him to NSR. Fluid challenges are being given so will hold all BP meds.. #3. Herpes genitalis: Stable #4. Thrombocytopenia: Chronic #5., Depression Stable on Duloxetine 30 mg daily #6. GERD: Continue with Omeprazole #7. Drug addiction-Meth and THC
[2018-12-19] MEDS ORDERED: Dextrose 5% in Water 250 ML ONE (20:23)
[2018-12-19] MEDS ORDERED: Norepinephrine 4 MG/4 ML SDV ONE (20:23)
[2018-12-19] MEDS: Norepinephrine 4 MG in Dextrose 5% in Water 246 ML IV SCH ×2 (20:30)
[2018-12-20] MEDS: NS + KCl 20mEq/L 1,000 ML IV SCH ×2 (05:53→13:28)
[2018-12-20] MEDS: Norepinephrine 4 MG in Dextrose 5% in Water 246 ML IV SCH ×2 (05:54)
[2018-12-20] MEDS: Tamsulosin 0.4 MG Cap.ER PO SCH (07:41)
[2018-12-20] MEDS: Potassium Chloride 20 MEQ Tab.ER PO SCH (07:42)
[2018-12-20] MEDS: Ibuprofen 800 MG Tab PO PRN (07:42)
[2018-12-20] MEDS: Verapamil 120 MG Tab.ER PO SCH (09:03)
[2018-12-20] MEDS: Hydrochlorothiazide 12.5 MG Cap PO SCH (09:04)
[2018-12-20] MEDS: Lisinopril 10 MG Tab PO SCH (09:04)
--- NOTE | 2018-12-20 13:26 | PCM.PN ---
- General Info Date of Service: 12/20/18 Functional Status: Reports: Pain Controlled - Review of Systems General: Reports: Weakness, Fatigue HEENT: Reports: No Symptoms Pulmonary: Reports: No Symptoms Cardiovascular: Reports: No Symptoms Gastrointestinal: Reports: Abdominal Pain Genitourinary: Reports: No Symptoms Musculoskeletal: Reports: No Symptoms Skin: Reports: No Symptoms Neurological: Reports: No Symptoms Psychiatric: Reports: No Symptoms - Patient Data Vitals - Most Recent: Last Vital Signs Temp 97.3 F 12/20/18 13:00 Pulse 120 H 12/20/18 13:00 Resp 19 12/20/18 13:00 BP 115/73 12/20/18 13:00 Pulse Ox 94 L 12/20/18 13:00 Weight - Most Recent: 245 lb 6.4 oz I&O - Last 24 Hours: Intake & Output 12/19/18 12/20/18 12/20/18 22:59 06:59 14:59 Intake Total 4534 2159 836 Output Total 522 523 6958 Balance 4254 1732 -873 Lab Results Last 24 Hours: Laboratory Results - last 24 hr 12/20/18 12/20/18 Range/Units 05:06 05:06 WBC 16.1 H (4.5-11.0) K/uL RBC 4.01 L (4.30-5.90) M/uL Hgb 13.3 (12.0-15.0) g/dL Hct 37.8 L (40.0-54.0) % MCV 94 (80-98) fL MCH 33 H (27-31) pg MCHC 35 (32-36) % Plt Count 71 L (150-400) K/uL Neut % (Auto) 79 H (36-66) % Lymph % (Auto) 7 L (24-44) % [place] % (Auto) 12 H (2-6) % Eos % (Auto) 1 L (2-4) % Baso % (Auto) 0 (0-1) % Sodium 136 L (140-148) mmol/L Potassium 3.8 (3.6-5.2) mmol/L Chloride 107 (100-108) mmol/L Carbon Dioxide 20 L (21-32) mmol/L Anion Gap 12.8 (5.0-14.0) mmol/L BUN 34 H D (7-18) mg/dL Creatinine 1.6 H (0.8-1.3) mg/dL Est Cr Clr Drug Dosing 48.93 mL/min Estimated GFR (MDRD) 44 L (>60) Glucose 133 H (74-106) mg/dL Calcium 8.0 L (8.5-10.1) mg/dL Total Bilirubin 2.4 H (0.2-1.0) mg/dL AST 38 H (15-37) U/L ALT 38 (12-78) U/L Alkaline Phosphatase 105 (46-116) U/L Total Protein 5.7 L (6.4-8.2) g/dL Albumin 1.7 L (3.4-5.0) g/dL Globulin 4.0 H (2.3-3.5) g/dL Albumin/Globulin Ratio 0.4 L (1.2-2.2) Jace Results Last 24 Hours: Microbiology 12/18/18 15:51 Aerobic Blood Culture - Preliminary Blood - Arm, Left Gram Negative Rods Anaerobic Blood Culture - Preliminary Gram Negative Rods 12/18/18 15:40 Aerobic Blood Culture - Preliminary Blood - Venous - Iv Start Gram Negative Rods Anaerobic Blood Culture - Preliminary Gram Negative Rods 12/18/18 17:27 Urine Culture - Final Urine, Clean Catch Klebsiella Pneumonia Ss Pneumo Med Orders - Current: Current Medications Hydrocodone Bitart/Acetaminophen ([place] 325-5 Mg) 1 - 2 tab PO Q4H PRN PRN Reason: Pain Last Admin: 12/18/18 22:22 Dose: 2 tab Acyclovir (Zovirax) 400 mg PO BID PRN PRN Reason: Herpes outbreak Hydrochlorothiazide (Hydrochlorothiazide) 12.5 mg PO DAILY [facility] Last Admin: 12/20/18 09:04 Dose: Not Given Potassium Chloride/Sodium Chloride (Normal Saline With 20 Meq Kcl) 1,000 mls @ 125 mls/hr IV ASDIRECTED [facility] Last Admin: 12/20/18 05:53 Dose: 125 mls/hr Ceftriaxone Sodium 1 gm/ (Sodium Chloride) 50 mls @ 100 mls/hr IV Q24H [facility] Last Admin: 12/19/18 17:27 Dose: 100 mls/hr Levofloxacin/Dextrose 750 mg/ (Premix) 150 mls @ 100 mls/hr IV Q24H [facility] Last Admin: 12/19/18 15:46 Dose: 100 mls/hr Norepinephrine Bitartrate 4 mg (/ Dextrose/Water) 250 mls @ 7.5 mls/hr IV TITRATE [facility]; Protocol Last Titration: 12/20/18 11:06 Dose: 4 mcg/min, 15 mls/hr Ibuprofen (Motrin) 800 mg PO Q6H PRN PRN Reason: Pain Last Admin: 12/20/18 07:42 Dose: 800 mg Lisinopril (Prinivil) 20 mg PO DAILY [facility] Last Admin: 12/20/18 09:04 Dose: Not Given Potassium Chloride (Klor-Con M20) 20 meq PO BIDMEALS [facility] Last Admin: 12/20/18 07:42 Dose: 20 meq Tamsulosin HCl (Flomax) 0.4 mg PO BIDPC [facility] Last Admin: 12/20/18 07:41 Dose: 0.4 mg Verapamil HCl (Calan Sr) 240 mg PO DAILY [facility] Last Admin: 12/20/18 09:03 Dose: Not Given Discontinued Medications Sodium Chloride (Normal Saline) 1,000 mls @ 1,000 mls/hr IV ASDIRECTED [facility] Last Admin: 12/18/18 15:41 Dose: 1,000 mls/hr Levofloxacin/Dextrose 750 mg/ (Premix) 150 mls @ 100 mls/hr IV ONETIME ONE Stop: 12/18/18 17:29 Last Admin: 12/18/18 16:14 Dose: 100 mls/hr Ceftriaxone Sodium 1 gm/ (Sodium Chloride) 50 mls @ 100 mls/hr IV ONETIME ONE Stop: 12/18/18 16:44 Last Admin: 12/18/18 17:33 Dose: 100 mls/hr Sodium Chloride (Normal Saline) 1,000 mls @ 125 mls/hr IV ASDIRECTED [facility] Last Admin: 12/18/18 17:56 Dose: 1,000 mls/hr Ceftriaxone Sodium 1 gm/ (Sodium Chloride) 50 mls @ 100 mls/hr IV Q24H [facility] Last Admin: 12/19/18 19:26 Dose: Not Given Sodium Chloride (Normal Saline) 500 mls @ 999 mls/hr IV .BOLUS ONE Stop: 12/19/18 18:39 Last Admin: 12/19/18 18:28 Dose: 999 mls/hr Sodium Chloride (Normal Saline) 500 mls @ 999 mls/hr IV .BOLUS ONE Stop: 12/19/18 18:48 Last Admin: 12/19/18 18:32 Dose: 999 mls/hr Sodium Chloride (Normal Saline) 500 mls @ 500 mls/hr IV .BOLUS ONE Stop: 12/19/18 20:34 Last Admin: 12/19/18 19:50 Dose: 500 mls/hr Dextrose/Water (Dextrose 5% In Water) Confirm Administered Dose 250 mls @ as directed .ROUTE .STK-MED ONE Stop: 12/19/18 20:24 Last Admin: 12/19/18 20:34 Dose: Not Given Ibuprofen (Motrin) 800 mg PO ASDIRECTED [facility] Metoprolol Tartrate (Lopressor) 25 mg PO BID [facility] Last Admin: 12/19/18 12:18 Dose: Not Given Norepinephrine Bitartrate (Levophed) Confirm Administered Dose 4 mg .ROUTE .STK- MED ONE Stop: 12/19/18 20:24 Last Admin: 12/19/18 20:34 Dose: Not Given Tamsulosin HCl (Flomax) 0.4 mg PO BIDPC [facility] - Exam General: Alert, Oriented, Moderate Distress HEENT: Pupils Equal, Pupils Reactive, EOMI, Mucous Membr. Moist/[place] Neck: Supple Lungs: Clear to Auscultation, Normal Respiratory Effort Cardiovascular: Tachycardia GI/Abdominal Exam: Normal Bowel Sounds Back Exam: Normal Inspection Extremities: Normal Inspection, Normal Range of Motion, Non-Tender, No Pedal Edema, Normal Capillary Refill Peripheral Pulses: 1+: Radial (L), Radial (R) Skin: Warm, Dry, Intact Psy/Mental Status: Alert, Labile Mood - Problem List Review Problem List Initiated/Reviewed/Updated: Yes - My Orders Last 24 Hours: My Active Orders 12/19/18 13:46 SCD [Sequential Compression Device] [OM.PC] Routine 12/19/18 17:00 cefTRIAXone [Rocephin] 1 gm Sodium Chloride 0.9% [Normal Saline] 50 ml IV Q24H 12/19/18 20:30 Norepinephrine [Levophed] 4 mg Dextrose 5% in Water 246 ml IV TITRATE - Plan Plan:: Assessment/Plan: #1. Kidney stone with Septicemia. (Left) mid ureter with moderate hydronephroses. On Flomax and continue with Rocephin and Levaquin. There is reported to have gram Neg bacteria. ID's are pending. WBC dropped to 14,000 and now WBC 16,000 and K up to 3.2. Extra K has been given. #2. HTN: BP supported with Norepinephrine 4mcg/min = 15 ml/hr BP now 115/79 with pulse of 74. He does have a history of HTN on Verapamil and Metoprolol. #3. Herpes genitalis: Stable #4. Thrombocytopenia: Chronic #5., Depression Stable on Duloxetine 30 mg daily #6. GERD: Continue with Omeprazole #7. Drug addiction-Meth and THC. Plan to transfer to [facility]. Have spoken the in admitting physician and the Urologist.
--- NOTE | 2018-12-20 13:31 | PCM.DCSUM1 ---
Discharge Summary - Hospital Course Brief History: Admitted from home with abdominal pain and found to be septic. Kidney stone in the left with moderate hydronephrosis Diagnosis: Stroke: No - Discharge Data Discharge Date: 12/20/18 Discharge Disposition: DC/Tfer to Acute Hospital 02 Condition: Fair - Patient Summary/Data Hospital Course: Started on Rocephin and Levoquin and WBC dropped from 20,000 to 14,000 then 16, 000 the day of transfer. He did have hypotension and given fluids then Norephinephrine. At the time of transfer he was on 4mcg/min = 15ml/hr. BP was 115/79 with a pulse of 75/min - Patient Instructions Diet: Heart Healthy Diet - Discharge Plan *PRESCRIPTION DRUG MONITORING PROGRAM REVIEWED*: No *COPY OF PRESCRIPTION DRUG MONITORING REPORT IN PATIENT SHAMA: No Home Medications: Home Meds Hydrochlorothiazide 12.5 mg PO DAILY 10/16/15 [History] Lisinopril 20 mg PO DAILY 10/16/15 [History] Verapamil HCl [Verapamil Sr] 240 mg PO DAILY 10/16/15 [History] Acyclovir [Zovirax] 400 mg PO BID PRN 05/07/16 [History] Ibuprofen 800 mg PO ASDIRECTED 06/02/16 [History] Metoprolol Tartrate 25 mg PO BID 09/27/18 [History] Forms: ED Department Discharge Referrals: Glen Fontana Sr, MD [Primary Care Provider] - - Discharge Summary/Plan Comment DC Time >30 min.: Yes Discharge Summary/Plan Comment: Assessment/Plan: #1. Kidney stone with Septicemia. (Left) mid ureter with moderate hydronephroses. On Flomax and continue with Rocephin and Levaquin. There is reported to have gram Neg bacteria. ID's are pending. WBC dropped to 14,000 and now WBC 16,000 and K up to 3.2. Extra K has been given. #2. HTN: BP supported with Norepinephrine 4mcg/min = 15 ml/hr BP now 115/79 with pulse of 74. He does have a history of HTN on Verapamil and Metoprolol. #3. Herpes genitalis: Stable #4. Thrombocytopenia: Chronic #5., Depression Stable on Duloxetine 30 mg daily #6. GERD: Continue with Omeprazole #7. Drug addiction-Meth and THC. Plan to transfer to [facility]. Have spoken the in admitting physician and the Urologist. - General Info Date of Service: 12/20/18 Admission Dx/Problem (Free Text: Abdominal pain with sepsis Functional Status: Reports: Pain Controlled - Review of Systems General: Reports: Weakness, Fatigue HEENT: Reports: No Symptoms Pulmonary: Reports: No Symptoms Cardiovascular: Reports: No Symptoms Gastrointestinal: Reports: Abdominal Pain Genitourinary: Reports: No Symptoms Musculoskeletal: Reports: No Symptoms Skin: Reports: No Symptoms Neurological: Reports: No Symptoms Psychiatric: Reports: Mood Lability - Patient Data Vitals - Most Recent: Last Vital Signs Temp 97.3 F 12/20/18 13:00 Pulse 120 H 12/20/18 13:00 Resp 19 12/20/18 13:00 BP 115/73 12/20/18 13:00 Pulse Ox 94 L 12/20/18 13:00 Weight - Most Recent: 245 lb 6.4 oz I&O - Last 24 hours: Intake & Output 12/19/18 12/20/18 12/20/18 22:59 06:59 14:59 Intake Total 4534 2159 836 Output Total 310 793 9523 Balance 4254 0289 -579 Lab Results - Last 24 hrs: Laboratory Results - last 24 hr 12/20/18 12/20/18 Range/Units 05:06 05:06 WBC 16.1 H (4.5-11.0) K/uL RBC 4.01 L (4.30-5.90) M/uL Hgb 13.3 (12.0-15.0) g/dL Hct 37.8 L (40.0-54.0) % MCV 94 (80-98) fL MCH 33 H (27-31) pg MCHC 35 (32-36) % Plt Count 71 L (150-400) K/uL Neut % (Auto) 79 H (36-66) % Lymph % (Auto) 7 L (24-44) % [place] % (Auto) 12 H (2-6) % Eos % (Auto) 1 L (2-4) % Baso % (Auto) 0 (0-1) % Sodium 136 L (140-148) mmol/L Potassium 3.8 (3.6-5.2) mmol/L Chloride 107 (100-108) mmol/L Carbon Dioxide 20 L (21-32) mmol/L Anion Gap 12.8 (5.0-14.0) mmol/L BUN 34 H D (7-18) mg/dL Creatinine 1.6 H (0.8-1.3) mg/dL Est Cr Clr Drug Dosing 48.93 mL/min Estimated GFR (MDRD) 44 L (>60) Glucose 133 H (74-106) mg/dL Calcium 8.0 L (8.5-10.1) mg/dL Total Bilirubin 2.4 H (0.2-1.0) mg/dL AST 38 H (15-37) U/L ALT 38 (12-78) U/L Alkaline Phosphatase 105 (46-116) U/L Total Protein 5.7 L (6.4-8.2) g/dL Albumin 1.7 L (3.4-5.0) g/dL Globulin 4.0 H (2.3-3.5) g/dL Albumin/Globulin Ratio 0.4 L (1.2-2.2) BEATA Results - Last 24 hrs: Microbiology 12/18/18 15:51 Aerobic Blood Culture - Preliminary Blood - Arm, Left Gram Negative Rods Anaerobic Blood Culture - Preliminary Gram Negative Rods 12/18/18 15:40 Aerobic Blood Culture - Preliminary Blood - Venous - Iv Start Gram Negative Rods Anaerobic Blood Culture - Preliminary Gram Negative Rods 12/18/18 17:27 Urine Culture - Final Urine, Clean Catch Klebsiella Pneumonia Ss Pneumo Med Orders - Current: Current Medications Hydrocodone Bitart/Acetaminophen ([place] 325-5 Mg) 1 - 2 tab PO Q4H PRN PRN Reason: Pain Last Admin: 12/18/18 22:22 Dose: 2 tab Acyclovir (Zovirax) 400 mg PO BID PRN PRN Reason: Herpes outbreak Hydrochlorothiazide (Hydrochlorothiazide) 12.5 mg PO DAILY [facility] Last Admin: 12/20/18 09:04 Dose: Not Given Potassium Chloride/Sodium Chloride (Normal Saline With 20 Meq Kcl) 1,000 mls @ 125 mls/hr IV ASDIRECTED [facility] Last Admin: 12/20/18 05:53 Dose: 125 mls/hr Ceftriaxone Sodium 1 gm/ (Sodium Chloride) 50 mls @ 100 mls/hr IV Q24H [facility] Last Admin: 12/19/18 17:27 Dose: 100 mls/hr Levofloxacin/Dextrose 750 mg/ (Premix) 150 mls @ 100 mls/hr IV Q24H [facility] Last Admin: 12/19/18 15:46 Dose: 100 mls/hr Norepinephrine Bitartrate 4 mg (/ Dextrose/Water) 250 mls @ 7.5 mls/hr IV TITRATE [facility]; Protocol Last Titration: 12/20/18 11:06 Dose: 4 mcg/min, 15 mls/hr Ibuprofen (Motrin) 800 mg PO Q6H PRN PRN Reason: Pain Last Admin: 12/20/18 07:42 Dose: 800 mg Lisinopril (Prinivil) 20 mg PO DAILY [facility] Last Admin: 12/20/18 09:04 Dose: Not Given Potassium Chloride (Klor-Con M20) 20 meq PO BIDMEALS [facility] Last Admin: 12/20/18 07:42 Dose: 20 meq Tamsulosin HCl (Flomax) 0.4 mg PO BIDPC [facility] Last Admin: 12/20/18 07:41 Dose: 0.4 mg Verapamil HCl (Calan Sr) 240 mg PO DAILY [facility] Last Admin: 12/20/18 09:03 Dose: Not Given Discontinued Medications Sodium Chloride (Normal Saline) 1,000 mls @ 1,000 mls/hr IV ASDIRECTED [facility] Last Admin: 12/18/18 15:41 Dose: 1,000 mls/hr Levofloxacin/Dextrose 750 mg/ (Premix) 150 mls @ 100 mls/hr IV ONETIME ONE Stop: 12/18/18 17:29 Last Admin: 12/18/18 16:14 Dose: 100 mls/hr Ceftriaxone Sodium 1 gm/ (Sodium Chloride) 50 mls @ 100 mls/hr IV ONETIME ONE Stop: 12/18/18 16:44 Last Admin: 12/18/18 17:33 Dose: 100 mls/hr Sodium Chloride (Normal Saline) 1,000 mls @ 125 mls/hr IV ASDIRECTED [facility] Last Admin: 12/18/18 17:56 Dose: 1,000 mls/hr Ceftriaxone Sodium 1 gm/ (Sodium Chloride) 50 mls @ 100 mls/hr IV Q24H [facility] Last Admin: 12/19/18 19:26 Dose: Not Given Sodium Chloride (Normal Saline) 500 mls @ 999 mls/hr IV .BOLUS ONE Stop: 12/19/18 18:39 Last Admin: 12/19/18 18:28 Dose: 999 mls/hr Sodium Chloride (Normal Saline) 500 mls @ 999 mls/hr IV .BOLUS ONE Stop: 12/19/18 18:48 Last Admin: 12/19/18 18:32 Dose: 999 mls/hr Sodium Chloride (Normal Saline) 500 mls @ 500 mls/hr IV .BOLUS ONE Stop: 12/19/18 20:34 Last Admin: 12/19/18 19:50 Dose: 500 mls/hr Dextrose/Water (Dextrose 5% In Water) Confirm Administered Dose 250 mls @ as directed .ROUTE .STK-MED ONE Stop: 12/19/18 20:24 Last Admin: 12/19/18 20:34 Dose: Not Given Ibuprofen (Motrin) 800 mg PO ASDIRECTED [facility] Metoprolol Tartrate (Lopressor) 25 mg PO BID [facility] Last Admin: 12/19/18 12:18 Dose: Not Given Norepinephrine Bitartrate (Levophed) Confirm Administered Dose 4 mg .ROUTE .STK- MED ONE Stop: 12/19/18 20:24 Last Admin: 12/19/18 20:34 Dose: Not Given Tamsulosin HCl (Flomax) 0.4 mg PO BIDPC [facility] - Exam General: Reports: Alert, Oriented HEENT: Reports: Pupils Equal, Pupils Reactive, EOMI, Mucous Membr. Moist/[place] Neck: Reports: Supple Lungs: Reports: Clear to Auscultation, Normal Respiratory Effort Cardiovascular: Reports: Regular Rate, Regular Rhythm GI/Abdominal Exam: Distended, Tender Back Exam: Reports: Normal Inspection, Full Range of Motion Extremities: Normal Inspection, Normal Range of Motion, Non-Tender, No Pedal Edema, Normal Capillary Refill Skin: Reports: Warm, Dry, Intact Psy/Mental Status: Reports: Labile Mood
[2018-12-20 14:06] VITALS: BP 116/66
== END 2018-12-20 14:25 | DRG 872 ==
LOC: JP.ED 14:53 → JP.ICU 18:42
PROVIDERS: ADMIT Internal Medicine; ATTEND Internal Medicine
DX: A41.59 Other Gram-negative sepsis (principal); N13.6 Pyonephrosis; F15.20 Other stimulant dependence, uncomplicated; R65.20 Severe sepsis without septic shock; A60.00 Herpesviral infection of urogenital system, unspecified; D69.6 Thrombocytopenia, unspecified; F32.9 Major depressive disorder, single episode, unspecified; K21.9 Gastro-esophageal reflux disease without esophagitis; F12.20 Cannabis dependence, uncomplicated; I10 Essential (primary) hypertension; I25.10 Atherosclerotic heart disease of native coronary artery without angina pectoris; I25.2 Old myocardial infarction; Z86.19 Personal history of other infectious and parasitic diseases; I95.9 Hypotension, unspecified
CPT/HCPCS: 36415; 71045; 71045-26; 74018; 74176; 76700; 80048; 80053; 80305-QW; 81001; 83605; 84145; 85025; 87040; 87077; 87086; 87088; 87186; 96361; 96365; 96366; 96368; 99285-25; A9270-GY; J0696; J1956; J3480; J7030; J7040; J7050; J7060

== ENCOUNTER 2018-12-29 00:18 | Inpatient (IN) | payer MEDICAID ==
--- NOTE | 2018-12-29 01:09 | EDM.PDOC ---
ED HPI GENERAL MEDICAL PROBLEM - General Chief Complaint: Abdominal Pain Stated Complaint: PAIN WAS IN HOSPITAL WITH GULL STONES Time Seen by Provider: 12/29/18 01:08 Source of Information: Reports: Patient History Limitations: Reports: No Limitations - History of Present Illness INITIAL COMMENTS - FREE TEXT/NARRATIVE: pt arrived with severe abdomanal pain. He is very tender in the rt upper abdom, an. He is nauseated and he has not vomited. He is having yellow stools that are quite firm. He staes he had a good day this am and then this pain came on. He was recently hopitalized in [place] for kidney stones and sepsis. He had a stent placed in the left ureter and he will be having llithriotriopsey later. He was discharged from the hosp on the . Onset: Today, Other ( The pain started this afternoon. ) Duration: Hour(s): Location: Reports: Abdomen Associated Symptoms: Reports: Fever/Chills abd Pain Score (Numeric/FACES): 7 - Related Data Allergies Allergy/AdvReac Type Severity Reaction Status Date / Time No Known Allergies Allergy Verified 09/27/18 00:45 Home Meds: Home Meds Verapamil HCl [Verapamil Sr] 240 mg PO DAILY 10/16/15 [History] Ibuprofen 800 mg PO ASDIRECTED 06/02/16 [History] Cephalexin [Keflex] 500 mg PO QID 12/29/18 [History] DULoxetine [Cymbalta] 30 mg PO DAILY 12/29/18 [History] Furosemide [Lasix] 20 mg PO DAILY 12/29/18 [History] Omeprazole 20 mg PO DAILY 12/29/18 [History] oxyCODONE 5 mg PO Q4H PRN 12/29/18 [History] Past Medical History HEENT History: Reports: Impaired Vision Cardiovascular History: Reports: Afib, CAD, Hypertension, [place] Other Cardiovascular History: afib rvr Respiratory History: Reports: Other (See Below) Other Respiratory History: positive mantoux Gastrointestinal History: Reports: GERD Genitourinary History: Reports: Renal Calculus Musculoskeletal History: Reports: Fracture, Other (See Below) Other Musculoskeletal History: shoulder, foot, coller bone Neurological History: Reports: Headaches, Chronic Psychiatric History: Reports: ADHD, Anxiety, Depression, Suicidal Ideation Immunologic History: Reports: Other (See Below) Other Immunologic History: hepatitis C - Infectious Disease History Infectious Disease History: Reports: Chicken Pox, Hepatitis C, Meningitis, Mumps - Past Surgical History GI Surgical History: Reports: Appendectomy Musculoskeletal Surgical History: Reports: Carpal Tunnel, Shoulder Surgery, Other (See Below) Social & Family History - Family History Family Medical History: Noncontributory - Tobacco Use Smoking Status *Q: Heavy Tobacco Smoker Years of Tobacco use: 45 Packs/Tins Daily: 0.5 - Caffeine Use Caffeine Use: Reports: Coffee, Soda - Recreational Drug Use Recreational Drug Type: Reports: Methamphetamine ED ROS GENERAL - Review of Systems Review Of Systems: See Below Constitutional: Reports: Fever, Malaise, Other (pt is having alot of pain in rt upper abdoman and he is looking distended,. ) HEENT: Reports: No Symptoms Respiratory: Reports: No Symptoms Cardiovascular: Reports: No Symptoms Endocrine: Reports: No Symptoms GI/Abdominal: Reports: Abdominal Pain, Nausea, Other (pain in the upper rt abdoman. ) : Reports: No Symptoms Musculoskeletal: Reports: No Symptoms Skin: Reports: No Symptoms Neurological: Reports: No Symptoms Psychiatric: Reports: Anxiety ED EXAM, GI/ABD - Physical Exam Exam: See Below Text/Narrative:: pt arrived with pain in the rt upper abdoman. He feels like he is distended. He did have a bm today. He is not vomiting. The pain became very severe this afternoon. Exam Limited By: No Limitations General Appearance: Alert, Anxious, Moderate Distress, Other (pt is feling distended. ) Ears: Normal TMs Nose: Normal Inspection Throat/Mouth: Normal Inspection Head: Atraumatic Neck: Normal Inspection Respiratory/Chest: No Respiratory Distress Cardiovascular: Regular Rate, Rhythm GI/Abdominal Exam: Distended, Tender, Other ( rt upper abdoman. ) (Male) Exam: Deferred Rectal (Males) Exam: Deferred Back Exam: Normal Inspection Extremities: Normal Inspection Neurological: Alert, Oriented, Normal Cognition Course - Vital Signs Last Recorded V/S: Last Vital Signs Temp 37.6 C 12/29/18 00:51 Pulse 86 12/29/18 00:51 Resp 18 12/29/18 00:51 BP 145/78 H 12/29/18 00:51 Pulse Ox 95 12/29/18 00:51 - Orders/Labs/Meds Orders: Active Orders 24 hr Category Date Time Status UA W/MICROSCOPIC [URIN] Urgent Lab 12/29/18 02:56 Ordered Sodium Chloride 0.9% [Normal Saline] 1,000 ml Med 12/29/18 01:15 Active IV ASDIRECTED Sodium Chloride 0.9% [Normal Saline] 1,000 ml Med 12/29/18 02:15 Active IV ASDIRECTED Medication Orders Sodium Chloride (Normal Saline) 1,000 mls @ 999 mls/hr IV ASDIRECTED AKBAR Last Admin: 12/29/18 01:20 Dose: 999 mls/hr Sodium Chloride (Normal Saline) 1,000 mls @ 999 mls/hr IV ASDIRECTED AKBAR Last Admin: 12/29/18 03:11 Dose: 999 mls/hr Labs: Laboratory Tests 12/29/18 12/29/18 12/29/18 Range/Units 00:59 00:59 01:02 WBC 9.9 (4.5-11.0) K/uL RBC 3.85 L (4.30-5.90) M/uL Hgb 12.7 (12.0-15.0) g/dL Hct 38.2 L (40.0-54.0) % MCV 99 H (80-98) fL MCH 33 H (27-31) pg MCHC 33 (32-36) % Plt Count 86 L (150-400) K/uL Neut % (Auto) 73 H (36-66) % Lymph % (Auto) 14 L (24-44) % [place] % (Auto) 11 H (2-6) % Eos % (Auto) 1 L (2-4) % Baso % (Auto) 1 (0-1) % Sodium (140-148) mmol/L Potassium (3.6-5.2) mmol/L Chloride (100-108) mmol/L Carbon Dioxide (21-32) mmol/L Anion Gap (5.0-14.0) mmol/L BUN (7-18) mg/dL Creatinine (0.8-1.3) mg/dL Est Cr Clr Drug Dosing mL/min Estimated GFR (MDRD) (>60) Glucose (74-106) mg/dL Calcium (8.5-10.1) mg/dL Total Bilirubin (0.2-1.0) mg/dL AST (15-37) U/L ALT (12-78) U/L Alkaline Phosphatase (46-116) U/L Total Protein (6.4-8.2) g/dL Albumin (3.4-5.0) g/dL Globulin (2.3-3.5) g/dL Albumin/Globulin Ratio (1.2-2.2) Amylase (25-115) U/L Lipase (73-393) U/L Urine Color [place] Urine Appearance Cloudy Urine pH 6.0 (4.5-8.0) Ur Specific [place] 1.020 (1.008-1.030) Urine Protein Trace (NEGATIVE) mg/dL Urine Glucose (UA) Normal (NEGATIVE) mg/dL Urine Ketones Negative (NEGATIVE) mg/dL Urine Occult Blood Large (NEGATIVE) Urine Nitrite Negative (NEGAITVE) Urine Bilirubin Negative (NEGATIVE) Urine Urobilinogen 4 (NORMAL) mg/dL Ur Leukocyte Esterase Small (NEGATIVE) Urine RBC 10-20 H (0-5) Urine WBC 5-10 H (0-5) Ur Epithelial Cells Not seen Amorphous Sediment Few Urine Bacteria Not seen Urine Mucus Not seen Urine Opiates Screen Presumptive positive H (NEGATIVE) Ur Oxycodone Screen Presumptive positive H (NEGATIVE) Urine Methadone Screen Negative (NEGATIVE) Ur Propoxyphene Screen Negative (NEGATIVE) Ur Barbiturates Screen Negative (NEGATIVE) Ur Tricyclics Screen Negative (NEGATIVE) Ur Phencyclidine Scrn Negative (NEGATIVE) Ur Amphetamine Screen Negative (NEGATIVE) U Methamphetamines Scrn Presumptive positive H (NEGATIVE) Urine MDMA Screen Negative (NEGATIVE) U Benzodiazepines Scrn Negative (NEGATIVE) U Cocaine Metab Screen Negative (NEGATIVE) U Marijuana (THC) Screen Presumptive positive H (NEGATIVE) 12/29/18 12/29/18 12/29/18 Range/Units 01:19 01:19 01:19 WBC (4.5-11.0) K/uL RBC (4.30-5.90) M/uL Hgb (12.0-15.0) g/dL Hct (40.0-54.0) % MCV (80-98) fL MCH (27-31) pg MCHC (32-36) % Plt Count (150-400) K/uL Neut % (Auto) (36-66) % Lymph % (Auto) (24-44) % [place] % (Auto) (2-6) % Eos % (Auto) (2-4) % Baso % (Auto) (0-1) % Sodium 139 L (140-148) mmol/L Potassium 4.1 (3.6-5.2) mmol/L Chloride 105 (100-108) mmol/L Carbon Dioxide 29 (21-32) mmol/L Anion Gap 9.1 (5.0-14.0) mmol/L BUN 15 D (7-18) mg/dL Creatinine 1.1 (0.8-1.3) mg/dL Est Cr Clr Drug Dosing 71.41 mL/min Estimated GFR (MDRD) > 60 (>60) Glucose 133 H (74-106) mg/dL Calcium 7.7 L (8.5-10.1) mg/dL Total Bilirubin 2.2 H (0.2-1.0) mg/dL AST 50 H (15-37) U/L ALT 35 (12-78) U/L Alkaline Phosphatase 138 H (46-116) U/L Total Protein 6.5 (6.4-8.2) g/dL Albumin 1.6 L (3.4-5.0) g/dL Globulin 4.9 H (2.3-3.5) g/dL Albumin/Globulin Ratio 0.3 L (1.2-2.2) Amylase 91 (25-115) U/L Lipase 194 (73-393) U/L Urine Color Urine Appearance Urine pH (4.5-8.0) Ur Specific [place] (1.008-1.030) Urine Protein (NEGATIVE) mg/dL Urine Glucose (UA) (NEGATIVE) mg/dL Urine Ketones (NEGATIVE) mg/dL Urine Occult Blood (NEGATIVE) Urine Nitrite (NEGAITVE) Urine Bilirubin (NEGATIVE) Urine Urobilinogen (NORMAL) mg/dL Ur Leukocyte Esterase (NEGATIVE) Urine RBC (0-5) Urine WBC (0-5) Ur Epithelial Cells Amorphous [place] Urine Bacteria Urine Mucus Urine Opiates Screen (NEGATIVE) Ur Oxycodone Screen (NEGATIVE) Urine Methadone Screen (NEGATIVE) Ur Propoxyphene Screen (NEGATIVE) Ur Barbiturates Screen (NEGATIVE) Ur Tricyclics Screen (NEGATIVE) Ur Phencyclidine Scrn (NEGATIVE) Ur Amphetamine Screen (NEGATIVE) U Methamphetamines Scrn (NEGATIVE) Urine MDMA Screen (NEGATIVE) U Benzodiazepines Scrn (NEGATIVE) U Cocaine Metab Screen (NEGATIVE) U Marijuana (THC) Screen (NEGATIVE) Meds: Medications Generic Name Dose Route Start Last Admin Trade Name Freq PRN Reason Stop Dose Admin Sodium Chloride 1,000 mls @ 999 mls/hr 12/29/18 01:15 12/29/18 01:20 Normal Saline IV 999 mls/hr ASDIRECTED AKBAR Administration Sodium Chloride 1,000 mls @ 999 mls/hr 12/29/18 02:15 12/29/18 03:11 Normal Saline IV 999 mls/hr ASDIRECTED AKBAR Administration Discontinued Medications Generic Name Dose Route Start Last Admin Trade Name Freq PRN Reason Stop Dose Admin Hydromorphone HCl 0.5 mg 12/29/18 01:10 12/29/18 01:20 Dilaudid IVPUSH 12/29/18 01:11 0.5 mg ONETIME ONE Administration Ondansetron HCl 4 mg 12/29/18 01:10 12/29/18 01:20 Zofran IVPUSH 12/29/18 01:11 4 mg ONETIME ONE Administration - Re-Assessments/Exams Free Text/Narrative Re-Assessment/Exam: 12/29/18 03:35 pt has a elevated bilirubin and liver enzymes. His pancreatic enzymes are normal. He had a cat scan of the abdoman which shows marked increase inthe acetes, he has cirrohosis of the liver. He has a large stone in the neck of the GB, He has a stent in his left ureter the stone remains in about the same place. Departure - Departure Time of Disposition: 03:37 Disposition: Admitted As Inpatient 64 Condition: Fair Clinical Impression: Gallstone, Cirrhosis, Ascites, Ureteral calculus, left - Discharge Information Referrals: Glen Fontana Sr, MD [Primary Care Provider] - Forms: ED Department Discharge Care Plan Goals: admit to Hosp - My Orders Last 24 Hours: My Active Orders 12/29/18 01:15 Sodium Chloride 0.9% [Normal Saline] 1,000 ml IV ASDIRECTED 12/29/18 02:15 Sodium Chloride 0.9% [Normal Saline] 1,000 ml IV ASDIRECTED 12/29/18 02:56 UA W/MICROSCOPIC [URIN] Urgent - Assessment/Plan Last 24 Hours: My Active Orders 12/29/18 01:15 Sodium Chloride 0.9% [Normal Saline] 1,000 ml IV ASDIRECTED 12/29/18 02:15 Sodium Chloride 0.9% [Normal Saline] 1,000 ml IV ASDIRECTED 12/29/18 02:56 UA W/MICROSCOPIC [URIN] Urgent
[2018-12-29] MEDS ORDERED: HYDROmorphone 0.5 MG/0.5 ML Syringe IVPUSH ONE (01:10)
[2018-12-29] MEDS ORDERED: Ondansetron 4 MG/2 ML SDV IVPUSH ONE (01:10)
[2018-12-29] MEDS ORDERED: Sodium Chloride 0.9% 1,000 ML IV SCH ×4 (01:15→10:30)
--- NOTE | 2018-12-29 02:38 | CRLCT ---
INDICATION: Right upper quadrant abdominal pain TECHNIQUE: CT Abdomen and pelvis without i.v. contrast. Coronal and sagittal reformats were obtained. COMPARISON: 12/18/2018 FINDINGS: Lower chest: Small left pleural effusion is present and increased compared to prior study. Mild left lower lobe passive atelectasis is seen. New ill-defined wispy peribronchial opacities are present in the anterior midlung zone. Liver: The liver has a nodular capsular contour, consistent with micronodular cirrhosis. No focal liver lesions are identified. Spleen: Severe splenomegaly is present with the spleen measuring 19 cm in craniocaudal length, unchanged from prior exam. Pancreas: Unremarkable. Gallbladder: There is an 8 mm calcified gallstone noted without interval change Kidney: There has been interval placement of a left ureteral double-J stent. A small 5 x 3 mm stone seen in the mid left ureter, adjacent to the stent on image 101. Adrenal: Unremarkable. Bowel: The hepatic flexure and proximal transverse colon are collapsed and difficult to evaluate but this suspected mild wall thickening. The appendix cannot be identified. Vascular: Unremarkable. Lymph: Mild retroperitoneal adenopathy is present within those in a aortocaval and left periaortic regions measuring up to 1 cm, unchanged from prior exam. Peritoneum: Unremarkable. No pneumoperitoneum is seen. Moderate abdominal ascites is present and significantly increased compared to prior exam. Pelvis: Unremarkable. Soft tissue: Moderate anasarca is present. Bone: Unremarkable for age. IMPRESSIONS: 1. There has been interval placement of a left ureteral double-J stent. A small 5 x 3 mm stone seen in the mid left ureter, adjacent to the stent on image 101. 2. Moderate abdominal ascites is present and significantly increased compared to prior exam. 3. New ill-defined wispy peribronchial opacities are present in the anterior midlung zone. These are incompletely assessed but may be due to an interstitial pneumonia or atelectasis. 4. Cirrhosis with severe stable splenomegaly is noted, consistent with portal hypertension. 5. The hepatic flexure and proximal transverse colon are collapsed and difficult to evaluate but this suspected mild wall thickening. Clinical correlation is recommended to exclude colitis. 6. Mild retroperitoneal adenopathy is present within those in a aortocaval and left periaortic regions measuring up to 1 cm, unchanged from prior exam. Dictated by Matt Sloan MD @ 12/29/2018 2:35:25 AM Please note that all CT scans at this facility use dose modulation, iterative reconstruction, and/or weight-based dosing when appropriate to reduce radiation dose to as low as reasonably achievable. Dictated by: Matt Sloan MD @ 12/29/2018 02:35:28 (Electronically Signed)
--- NOTE | 2018-12-29 05:09 | PCM.HP ---
H&P History of Present Illness - General Date of Service: 12/29/18 Admit Problem/Dx: Admission Diagnosis/Problem Admission Diagnosis/Problem Cholelithiasis Source of Information: Patient History Limitations: Reports: No Limitations - History of Present Illness Initial Comments - Free Text/Narative: chief complaint: right upper abdominal pain This is a 58 year old male presented to ER for acute right upper abdominal pain. He reports did feel well all day yesterday, was able to drink cranberry juice, no food, thought maybe his kidney stone was plugged again. The pain worsen to the point could not stand it anymore and came to ER. He reports his belly and legs have been swollen since his discharge from hospital in [place], [place]. While in ER he had labs and abdominal CT; the CT scan show a large stone in the neck of the gallbladder, ascites, see full report. History Hepatitis C with cirrhosis, ascites Poly substance use: Meth since 1995, last use this past weekend. history of IV drug use. Urine drug screen positive for opiates, oxycodone, meth and THC. denies alcohol use. recent Hospitalization at [facility] for kidney stones left uretheral stent placed, discharge 12/20/2018 has follow up surgery for stent removal on 2018 Onset of Symptoms: Reports: Gradual Symptom Onset Date: 12/28/18 Duration of Symptoms: Reports: Day(s): Location: Reports: Abdomen (right upper abdomen) Quality: Reports: Sharp, Stabbing Severity: Severe Improves with: Reports: None Worsens with: Reports: None Context: Reports: Other (right upper abdominal pain) Associated Symptoms: Reports: Fever/Chills (no fever, felt chills), Loss of Appetite, Nausea/Vomiting abd Pain Score (Numeric/FACES): 7 - Related Data Allergies/Adverse Reactions: Allergies Allergy/AdvReac Type Severity Reaction Status Date / Time No Known Allergies Allergy Verified 09/27/18 00:45 Home Medications: Home Meds Verapamil HCl [Verapamil Sr] 240 mg PO DAILY 10/16/15 [History] Ibuprofen 800 mg PO ASDIRECTED 06/02/16 [History] Cephalexin [Keflex] 500 mg PO QID 12/29/18 [History] DULoxetine [Cymbalta] 30 mg PO DAILY 12/29/18 [History] Furosemide [Lasix] 20 mg PO DAILY 12/29/18 [History] Omeprazole 20 mg PO DAILY 12/29/18 [History] oxyCODONE 5 mg PO Q4H PRN 12/29/18 [History] Past Medical History HEENT History: Reports: Impaired Vision Cardiovascular History: Reports: Afib, CAD, Hypertension, VT Other Cardiovascular History: afib rvr Respiratory History: Reports: Other (See Below) Other Respiratory History: positive mantoux Gastrointestinal History: Reports: GERD Genitourinary History: Reports: Renal Calculus Musculoskeletal History: Reports: Fracture, Other (See Below) Other Musculoskeletal History: shoulder, foot, coller bone Neurological History: Reports: Headaches, Chronic Psychiatric History: Reports: ADHD, Anxiety, Depression, Suicidal Ideation Immunologic History: Reports: Other (See Below) Other Immunologic History: hepatitis C - Infectious Disease History Infectious Disease History: Reports: Chicken Pox, Hepatitis C, Meningitis, Mumps - Past Surgical History GI Surgical History: Reports: Appendectomy Musculoskeletal Surgical History: Reports: Carpal Tunnel, Shoulder Surgery, Other (See Below) Social & Family History - Family History Family Medical History: Noncontributory - Tobacco Use Smoking Status *Q: Heavy Tobacco Smoker Years of Tobacco use: 45 Packs/Tins Daily: 0.5 - Caffeine Use Caffeine Use: Reports: Coffee, Soda - Recreational Drug Use Recreational Drug Type: Reports: Methamphetamine - Living Situation & Occupation Living situation: Reports: Single (lives in house with roommate in [place], [place].) H&P Review of Systems - Review of Systems: Review Of Systems: See Below General: Reports: Chills, Malaise, Fatigue, Decreased Appetite HEENT: Reports: Glasses (readersonly) Pulmonary: Reports: No Symptoms Cardiovascular: Reports: Orthopnea (unable to lay or sleep flat due to pressure from abdomen.), Edema (bilateral lower leg edema) Gastrointestinal: Reports: Abdominal Pain (abdominal distented, feels so tight) , Decreased Appetite Genitourinary: Reports: No Symptoms Musculoskeletal: Reports: No Symptoms Skin: Reports: No Symptoms Psychiatric: Reports: No Symptoms Neurological: Reports: No Symptoms Hematologic/Lymphatic: Reports: No Symptoms Immunologic: Reports: No Symptoms Exam - Exam Exam: See Below - Vital Signs Vital Signs: Last Vital Signs Temp 37.6 C 12/29/18 00:51 Pulse 86 12/29/18 00:51 Resp 18 12/29/18 00:51 BP 145/78 H 12/29/18 00:51 Pulse Ox 95 12/29/18 00:51 Weight: 117 kg - Exam General: Alert, Oriented, Cooperative HEENT: PERRLA, Conjunctiva Clear, EACs Clear, EOMI, Other (teeth intact, no active dental disease. ) Neck: Supple, Trachea Midline Lungs: Clear to Auscultation, Normal Respiratory Effort Cardiovascular: Regular Rate, Regular Rhythm, Normal S1, Normal S2 GI/Abdominal Exam: Distended (asciitis), Other (bowel sounds distention) (Male) Exam: Deferred Rectal (Males) Exam: Deferred Back Exam: Normal Inspection Extremities: Pedal Edema (3+ pitting toe to thighs.) Skin: Warm, Dry Neurological: Normal Speech, Normal Tone Neuro Extensive - Mental Status: Alert, Oriented x3, Normal Mood/Affect Psychiatric: Alert, Normal Affect, Normal Mood - Patient Data Lab Results Last 24 hrs: Laboratory Results - last 24 hr 12/29/18 12/29/18 12/29/18 Range/Units 00:59 00:59 01:02 WBC 9.9 (4.5-11.0) K/uL RBC 3.85 L (4.30-5.90) M/uL Hgb 12.7 (12.0-15.0) g/dL Hct 38.2 L (40.0-54.0) % MCV 99 H (80-98) fL MCH 33 H (27-31) pg MCHC 33 (32-36) % Plt Count 86 L (150-400) K/uL Neut % (Auto) 73 H (36-66) % Lymph % (Auto) 14 L (24-44) % Mcminn % (Auto) 11 H (2-6) % Eos % (Auto) 1 L (2-4) % Baso % (Auto) 1 (0-1) % Sodium (140-148) mmol/L Potassium (3.6-5.2) mmol/L Chloride (100-108) mmol/L Carbon Dioxide (21-32) mmol/L Anion Gap (5.0-14.0) mmol/L BUN (7-18) mg/dL Creatinine (0.8-1.3) mg/dL Est Cr Clr Drug Dosing mL/min Estimated GFR (MDRD) (>60) Glucose (74-106) mg/dL Calcium (8.5-10.1) mg/dL Total Bilirubin (0.2-1.0) mg/dL AST (15-37) U/L ALT (12-78) U/L Alkaline Phosphatase (46-116) U/L Total Protein (6.4-8.2) g/dL Albumin (3.4-5.0) g/dL Globulin (2.3-3.5) g/dL Albumin/Globulin Ratio (1.2-2.2) Amylase (25-115) U/L Lipase (73-393) U/L Urine Color [place] Urine Appearance Cloudy Urine pH 6.0 (4.5-8.0) Ur Specific [place] 1.020 (1.008-1.030) Urine Protein Trace (NEGATIVE) mg/dL Urine Glucose (UA) Normal (NEGATIVE) mg/dL Urine Ketones Negative (NEGATIVE) mg/dL Urine Occult Blood Large (NEGATIVE) Urine Nitrite Negative (NEGAITVE) Urine Bilirubin Negative (NEGATIVE) Urine Urobilinogen 4 (NORMAL) mg/dL Ur Leukocyte Esterase Small (NEGATIVE) Urine RBC 10-20 H (0-5) Urine WBC 5-10 H (0-5) Ur Epithelial Cells Not seen Amorphous Sediment Few Urine Bacteria Not seen Urine Mucus Not seen Urine Opiates Screen Presumptive positive H (NEGATIVE) Ur Oxycodone Screen Presumptive positive H (NEGATIVE) Urine Methadone Screen Negative (NEGATIVE) Ur Propoxyphene Screen Negative (NEGATIVE) Ur Barbiturates Screen Negative (NEGATIVE) Ur Tricyclics Screen Negative (NEGATIVE) Ur Phencyclidine Scrn Negative (NEGATIVE) Ur Amphetamine Screen Negative (NEGATIVE) U Methamphetamines Scrn Presumptive positive H (NEGATIVE) Urine MDMA Screen Negative (NEGATIVE) U Benzodiazepines Scrn Negative (NEGATIVE) U Cocaine Metab Screen Negative (NEGATIVE) U Marijuana (THC) Screen Presumptive positive H (NEGATIVE) 12/29/18 12/29/18 12/29/18 Range/Units 01:19 01:19 01:19 WBC (4.5-11.0) K/uL RBC (4.30-5.90) M/uL Hgb (12.0-15.0) g/dL Hct (40.0-54.0) % MCV (80-98) fL MCH (27-31) pg MCHC (32-36) % Plt Count (150-400) K/uL Neut % (Auto) (36-66) % Lymph % (Auto) (24-44) % Mcminn % (Auto) (2-6) % Eos % (Auto) (2-4) % Baso % (Auto) (0-1) % Sodium 139 L (140-148) mmol/L Potassium 4.1 (3.6-5.2) mmol/L Chloride 105 (100-108) mmol/L Carbon Dioxide 29 (21-32) mmol/L Anion Gap 9.1 (5.0-14.0) mmol/L BUN 15 D (7-18) mg/dL Creatinine 1.1 (0.8-1.3) mg/dL Est Cr Clr Drug Dosing 71.41 mL/min Estimated GFR (MDRD) > 60 (>60) Glucose 133 H (74-106) mg/dL Calcium 7.7 L (8.5-10.1) mg/dL Total Bilirubin 2.2 H (0.2-1.0) mg/dL AST 50 H (15-37) U/L ALT 35 (12-78) U/L Alkaline Phosphatase 138 H (46-116) U/L Total Protein 6.5 (6.4-8.2) g/dL Albumin 1.6 L (3.4-5.0) g/dL Globulin 4.9 H (2.3-3.5) g/dL Albumin/Globulin Ratio 0.3 L (1.2-2.2) Amylase 91 (25-115) U/L Lipase 194 (73-393) U/L Urine Color Urine Appearance Urine pH (4.5-8.0) Ur Specific [place] (1.008-1.030) Urine Protein (NEGATIVE) mg/dL Urine Glucose (UA) (NEGATIVE) mg/dL Urine Ketones (NEGATIVE) mg/dL Urine Occult Blood (NEGATIVE) Urine Nitrite (NEGAITVE) Urine Bilirubin (NEGATIVE) Urine Urobilinogen (NORMAL) mg/dL Ur Leukocyte Esterase (NEGATIVE) Urine RBC (0-5) Urine WBC (0-5) Ur Epithelial Cells Amorphous [place] Urine Bacteria Urine Mucus Urine Opiates Screen (NEGATIVE) Ur Oxycodone Screen (NEGATIVE) Urine Methadone Screen (NEGATIVE) Ur Propoxyphene Screen (NEGATIVE) Ur Barbiturates Screen (NEGATIVE) Ur Tricyclics Screen (NEGATIVE) Ur Phencyclidine Scrn (NEGATIVE) Ur Amphetamine Screen (NEGATIVE) U Methamphetamines Scrn (NEGATIVE) Urine MDMA Screen (NEGATIVE) U Benzodiazepines Scrn (NEGATIVE) U Cocaine Metab Screen (NEGATIVE) U Marijuana (THC) Screen (NEGATIVE) Result Diagrams: 12/29/18 00:59 12/29/18 01:19 Imaging Impressions Last 24 hrs: Abdomen Pelvis CTPrimary Provider: Glen Fontana MD Room/Bed: Order Procedure: [id number] CT/Abdomen Pelvis wo Cont Reason for Exam painin rt upper abdoman. Date of Exam: 12/29/18 Order Requisition#: [id number] INDICATION: Right upper quadrant abdominal pain TECHNIQUE: CT Abdomen and pelvis without i.v. contrast. Coronal and sagittal reformats were obtained. COMPARISON: 12/18/2018 FINDINGS: Lower chest: Small left pleural effusion is present and increased compared to prior study. Mild left lower lobe passive atelectasis is seen. New ill-defined wispy peribronchial opacities are present in the anterior midlung zone. Liver: The liver has a nodular capsular contour, consistent with micronodular cirrhosis. No focal liver lesions are identified. Spleen: Severe splenomegaly is present with the spleen measuring 19 cm in craniocaudal length, unchanged from prior exam. Pancreas: Unremarkable. Gallbladder: There is an 8 mm calcified gallstone noted without interval change Kidney: There has been interval placement of a left ureteral double-J stent. A small 5 x 3 mm stone seen in the mid left ureter, adjacent to the stent on image 101. Adrenal: Unremarkable. Bowel: The hepatic flexure and proximal transverse colon are collapsed and difficult to evaluate but this suspected mild wall thickening. The appendix cannot be identified. Vascular: Unremarkable. Lymph: Mild retroperitoneal adenopathy is present within those in a aortocaval and left periaortic regions measuring up to 1 cm, unchanged from prior exam. Peritoneum: Unremarkable. No pneumoperitoneum is seen. Moderate abdominal ascites is present and significantly increased compared to prior exam. Pelvis: Unremarkable. Soft tissue: Moderate anasarca is present. Bone: Unremarkable for age. IMPRESSIONS: 1. There has been interval placement of a left ureteral double-J stent. A small 5 x 3 mm stone seen in the mid left ureter, adjacent to the stent on image 101. 2. Moderate abdominal ascites is present and significantly increased compared to prior exam. 3. New ill-defined wispy peribronchial opacities are present in the anterior midlung zone. These are incompletely assessed but may be due to an interstitial pneumonia or atelectasis. 4. Cirrhosis with severe stable splenomegaly is noted, consistent with portal hypertension. 5. The hepatic flexure and proximal transverse colon are collapsed and difficult to evaluate but this suspected mild wall thickening. Clinical correlation is recommended to exclude colitis. 6. Mild retroperitoneal adenopathy is present within those in a aortocaval and left periaortic regions measuring up to 1 cm, unchanged from prior exam. : - Problem List (1) Cholelithiasis with obstruction SNOMED Code(s): 21629678, 497827150 ICD Code: K80.21 - CALCULUS OF GALLBLADDER W/O CHOLECYSTITIS WITH OBSTRUCTION Status: Acute Priority: High Current Visit: Yes Qualifiers: Cholecystitis acuity: acute (2) Hepatitis C, chronic Status: Acute Priority: High Current Visit: Yes (3) Ascites SNOMED Code(s): 599035469 ICD Code: R18.8 - OTHER ASCITES Status: Acute Priority: High Current Visit: Yes (4) Cirrhosis SNOMED Code(s): 50881942 ICD Code: K74.60 - UNSPECIFIED CIRRHOSIS OF LIVER Status: Acute Priority : High Current Visit: Yes Qualifiers: Hepatic cirrhosis type: unspecified hepatic cirrhosis Ascites presence: with ascites Qualified Code(s): K74.60 - Unspecified cirrhosis of liver; R18.8 - Other ascites (5) Methamphetamine abuse SNOMED Code(s): 566251370 ICD Code: F15.10 - OTHER STIMULANT ABUSE, UNCOMPLICATED Status: Acute Priority: Medium Current Visit: Yes Problem List Initiated/Reviewed/Updated: Yes Orders Last 24hrs: Active Orders 24 hr Category Date Time Status Patient Status Manage Transfer [TRANSFER] Routine ADT 12/29/18 04:39 Ordered UA W/MICROSCOPIC [URIN] Urgent Lab 12/29/18 02:56 Ordered Sodium Chloride 0.9% [Normal Saline] 1,000 ml Med 12/29/18 01:15 Active IV ASDIRECTED Sodium Chloride 0.9% [Normal Saline] 1,000 ml Med 12/29/18 02:15 Active IV ASDIRECTED Resuscitation Status Routine Resus Stat 12/29/18 04:43 Ordered Medication Orders Sodium Chloride (Normal Saline) 1,000 mls @ 999 mls/hr IV ASDIRECTED AKBAR Last Admin: 12/29/18 01:20 Dose: 999 mls/hr Sodium Chloride (Normal Saline) 1,000 mls @ 999 mls/hr IV ASDIRECTED AKBAR Last Admin: 12/29/18 03:11 Dose: 999 mls/hr Assessment/Plan Comment:: ASSESSMENT / PLAN pt arrived with severe abdominal pain. He is very tender in the rt upper abdomen. He is nauseated and he has not vomited. He is having yellow stools that are quite firm. He states he had a good day this am and then this pain came on. He was recently hospitalized in [facility] for kidney stones and sepsis. He had a stent placed in the left ureter and he will be having lithotripsy later with stent removal January 03, 2019. He was discharged from the hospital on December 20. ER evaluation Lab values = CBC WBC 9.9, Hgb 12.7, Hct 38.2, bilirubin total 2.2 Chemistry Na + 139, K+ 4.1, Cl 105, anion gap 9.1 , BUN 15, Cr 1.1, Glucose 133, Co2 133, Ca 7.7, urinalysis WBCs 5-10, RBC 10-20, CT scan of the abdomen - pelvis see full Cholelithiasis -Admit to [address] [place] [address] for further monitoring -IV Fluids for rehydration Normal Saline at 100 mL per hour -IV Antibiotic; Rocephin IV every 24 hours -pain control IV or PO ordered -Advise to notify nurses of any fever or worsen pain -consult to Dr. Staton, Surgeon Hepatits C with cirrhosis, with ascites, with cirrhosis -order one dose of IV Lasix 40 mg Tobacco Dependence smokes half a pack a day -decline patch or gum Methamphetamine abuse chronic - reports meth use since 1995. Snorts. last use last weekend. Hx of IVDU, denies alcohol use. -urine drug screen positive for opiates, oxycodone, meth, THC -monitor for withdrawal Maintenance issues -Orders home meds: on hold -Nutrition: NPO -Saeed catheter not indicated at this time -DVT: SCD, possible surgery -PPI; IV Protonix 40mg daily CODE STATUS: FULL Admission status: Admit to [address] [place] [address] justification. This patient will be admitted for inpatient services and is medically appropriate meeting medical necessity for inpatient admission as outlined in my documentation. I reasonably expect the patient will require inpatient services that span. Time over 2 midnights. I reasonably expect this patient to be discharged or transferred within 96 hours after admission to the critical access hospital. Disposition: home Primary care provider: Dr. Glen Fontana Hospitalist: Dr. Guzman
[2018-12-29] MEDS ORDERED: Furosemide 40 MG/4 ML VIAL IVPUSH ONE (05:38)
[2018-12-29] MEDS ORDERED: Albuterol 0.083% 2.5 MG/3 ML Neb Soln NEB PRN (05:38)
[2018-12-29] MEDS ORDERED: Albuterol/Ipratropium 3.0-0.5 MG/3 ML Neb Soln NEB PRN (05:38)
[2018-12-29] MEDS ORDERED: Ondansetron 4 MG Tab.DIS PO PRN (05:38)
[2018-12-29] MEDS ORDERED: LORazepam 2 MG/ML SDV IV PRN ×2 (05:38→10:25)
[2018-12-29] MEDS: Morphine 2 MG/ML Syringe IVPUSH PRN ×5 (06:00→22:04)
[2018-12-29] MEDS: oxyCODONE 5 MG Tab PO PRN ×3 (06:51→19:43)
[2018-12-29] MEDS: Ampicillin/Sulbactam Na 1.5 GM in Sodium Chloride 0.9% 50 ML IV SCH ×3 (09:43→21:02)
[2018-12-29] MEDS: Pantoprazole 40 MG Vial IVPUSH SCH (09:49)
--- NOTE | 2018-12-29 10:30 | PCM.PN ---
- General Info Date of Service: 12/29/18 Subjective Update: Mr. Mcdonald is a 58-year-old gentleman who was admitted through the emergency department earlier this morning, with nausea, vomiting, right upper quadrant abdominal pain, secondary to cholecystitis. Since admission he has continued to experience right upper quadrant abdominal pain, bilirubin was found to be elevated on admission but he does have a known history of hepatic cirrhosis. Recently hospitalized in [place] for management of a left ureteral calculus and is status post placement of a nephrostomy tube. Underlying history of chronic drug abuse, urine drug screen at the time of admission positive for narcotics, methamphetamine, and marijuana. Functional Status: Reports: Ambulating, Urinating - Review of Systems General: Reports: Weakness. Denies: Fever, Chills Pulmonary: Reports: No Symptoms Cardiovascular: Reports: No Symptoms Gastrointestinal: Reports: Abdominal Pain, Decreased Appetite, Nausea, Vomiting. Denies: Diarrhea, Difficulty Swallowing - Patient Data Vitals - Most Recent: Last Vital Signs Temp 96.5 F 12/29/18 07:21 Pulse 81 12/29/18 07:21 Resp 18 12/29/18 07:21 BP 117/75 12/29/18 07:21 Pulse Ox 93 L 12/29/18 07:21 Weight - Most Recent: 257 lb 15.053 oz I&O - Last 24 Hours: Intake & Output 12/28/18 12/29/18 12/29/18 22:59 06:59 14:59 Intake Total 50 Output Total 1400 Balance -1350 Lab Results Last 24 Hours: Laboratory Results - last 24 hr 12/29/18 12/29/18 12/29/18 Range/Units 00:59 00:59 01:02 WBC 9.9 (4.5-11.0) K/uL RBC 3.85 L (4.30-5.90) M/uL Hgb 12.7 (12.0-15.0) g/dL Hct 38.2 L (40.0-54.0) % MCV 99 H (80-98) fL MCH 33 H (27-31) pg MCHC 33 (32-36) % Plt Count 86 L (150-400) K/uL Neut % (Auto) 73 H (36-66) % Lymph % (Auto) 14 L (24-44) % [place] % (Auto) 11 H (2-6) % Eos % (Auto) 1 L (2-4) % Baso % (Auto) 1 (0-1) % Sodium (140-148) mmol/L Potassium (3.6-5.2) mmol/L Chloride (100-108) mmol/L Carbon Dioxide (21-32) mmol/L Anion Gap (5.0-14.0) mmol/L BUN (7-18) mg/dL Creatinine (0.8-1.3) mg/dL Est Cr Clr Drug Dosing mL/min Estimated GFR (MDRD) (>60) Glucose (74-106) mg/dL Calcium (8.5-10.1) mg/dL Total Bilirubin (0.2-1.0) mg/dL AST (15-37) U/L ALT (12-78) U/L Alkaline Phosphatase (46-116) U/L Total Protein (6.4-8.2) g/dL Albumin (3.4-5.0) g/dL Globulin (2.3-3.5) g/dL Albumin/Globulin Ratio (1.2-2.2) Amylase (25-115) U/L Lipase (73-393) U/L Urine Color [place] Urine Appearance Cloudy Urine pH 6.0 (4.5-8.0) Ur Specific [place] 1.020 (1.008-1.030) Urine Protein Trace (NEGATIVE) mg/dL Urine Glucose (UA) Normal (NEGATIVE) mg/dL Urine Ketones Negative (NEGATIVE) mg/dL Urine Occult Blood Large (NEGATIVE) Urine Nitrite Negative (NEGAITVE) Urine Bilirubin Negative (NEGATIVE) Urine Urobilinogen 4 (NORMAL) mg/dL Ur Leukocyte Esterase Small (NEGATIVE) Urine RBC 10-20 H (0-5) Urine WBC 5-10 H (0-5) Ur Epithelial Cells Not seen Amorphous Sediment Few Urine Bacteria Not seen Urine Mucus Not seen Urine Opiates Screen Presumptive positive H (NEGATIVE) Ur Oxycodone Screen Presumptive positive H (NEGATIVE) Urine Methadone Screen Negative (NEGATIVE) Ur Propoxyphene Screen Negative (NEGATIVE) Ur Barbiturates Screen Negative (NEGATIVE) Ur Tricyclics Screen Negative (NEGATIVE) Ur Phencyclidine Scrn Negative (NEGATIVE) Ur Amphetamine Screen Negative (NEGATIVE) U Methamphetamines Scrn Presumptive positive H (NEGATIVE) Urine MDMA Screen Negative (NEGATIVE) U Benzodiazepines Scrn Negative (NEGATIVE) U Cocaine Metab Screen Negative (NEGATIVE) U Marijuana (THC) Screen Presumptive positive H (NEGATIVE) 12/29/18 12/29/18 12/29/18 Range/Units 01:19 01:19 01:19 WBC (4.5-11.0) K/uL RBC (4.30-5.90) M/uL Hgb (12.0-15.0) g/dL Hct (40.0-54.0) % MCV (80-98) fL MCH (27-31) pg MCHC (32-36) % Plt Count (150-400) K/uL Neut % (Auto) (36-66) % Lymph % (Auto) (24-44) % [place] % (Auto) (2-6) % Eos % (Auto) (2-4) % Baso % (Auto) (0-1) % Sodium 139 L (140-148) mmol/L Potassium 4.1 (3.6-5.2) mmol/L Chloride 105 (100-108) mmol/L Carbon Dioxide 29 (21-32) mmol/L Anion Gap 9.1 (5.0-14.0) mmol/L BUN 15 D (7-18) mg/dL Creatinine 1.1 (0.8-1.3) mg/dL Est Cr Clr Drug Dosing 71.41 mL/min Estimated GFR (MDRD) > 60 (>60) Glucose 133 H (74-106) mg/dL Calcium 7.7 L (8.5-10.1) mg/dL Total Bilirubin 2.2 H (0.2-1.0) mg/dL AST 50 H (15-37) U/L ALT 35 (12-78) U/L Alkaline Phosphatase 138 H (46-116) U/L Total Protein 6.5 (6.4-8.2) g/dL Albumin 1.6 L (3.4-5.0) g/dL Globulin 4.9 H (2.3-3.5) g/dL Albumin/Globulin Ratio 0.3 L (1.2-2.2) Amylase 91 (25-115) U/L Lipase 194 (73-393) U/L Urine Color Urine Appearance Urine pH (4.5-8.0) Ur Specific [place] (1.008-1.030) Urine Protein (NEGATIVE) mg/dL Urine Glucose (UA) (NEGATIVE) mg/dL Urine Ketones (NEGATIVE) mg/dL Urine Occult Blood (NEGATIVE) Urine Nitrite (NEGAITVE) Urine Bilirubin (NEGATIVE) Urine Urobilinogen (NORMAL) mg/dL Ur Leukocyte Esterase (NEGATIVE) Urine RBC (0-5) Urine WBC (0-5) Ur Epithelial Cells Amorphous Sediment Urine Bacteria Urine Mucus Urine Opiates Screen (NEGATIVE) Ur Oxycodone Screen (NEGATIVE) Urine Methadone Screen (NEGATIVE) Ur Propoxyphene Screen (NEGATIVE) Ur Barbiturates Screen (NEGATIVE) Ur Tricyclics Screen (NEGATIVE) Ur Phencyclidine Scrn (NEGATIVE) Ur Amphetamine Screen (NEGATIVE) U Methamphetamines Scrn (NEGATIVE) Urine MDMA Screen (NEGATIVE) U Benzodiazepines Scrn (NEGATIVE) U Cocaine Metab Screen (NEGATIVE) U Marijuana (THC) Screen (NEGATIVE) Med Orders - Current: Current Medications Albuterol (Proventil Neb Soln) 2.5 mg NEB Q4H PRN PRN Reason: Shortness Of Breath/wheezing Albuterol/Ipratropium (Duoneb 3.0-0.5 Mg/3 Ml) 3 ml NEB QID PRN PRN Reason: Shortness Of Breath/wheezing Duloxetine HCl (Cymbalta) 30 mg PO DAILY [facility] Ampicillin Sodium/Sulbactam (Sodium 1.5 gm/ Sodium Chloride) 50 mls @ 100 mls/ hr IV Q6HR [facility] Last Admin: 12/29/18 09:43 Dose: 100 mls/hr Sodium Chloride (Normal Saline) 1,000 mls @ 50 mls/hr IV ASDIRECTED [facility] Lorazepam (Ativan) 0.5 mg IV Q4H PRN PRN Reason: Nausea/Vomiting Morphine Sulfate (Morphine) 2 mg IVPUSH Q2H PRN PRN Reason: Pain (severe 7-10) Last Admin: 12/29/18 09:39 Dose: 2 mg Ondansetron HCl (Zofran Odt) 4 mg PO Q6H PRN PRN Reason: Nausea able to take PO Oxycodone HCl (Oxycodone) 5 mg PO Q4H PRN PRN Reason: Pain (moderate 4-6) Last Admin: 12/29/18 06:51 Dose: 5 mg Pantoprazole Sodium (Protonix Iv) 40 mg IVPUSH DAILY [facility] Last Admin: 12/29/18 09:49 Dose: 40 mg Verapamil HCl (Calan Sr) 240 mg PO DAILY [facility] Discontinued Medications Furosemide (Lasix) 40 mg IVPUSH NOW ONE Stop: 12/29/18 05:39 Last Admin: 12/29/18 06:00 Dose: 40 mg Hydromorphone HCl (Dilaudid) 0.5 mg IVPUSH ONETIME ONE Stop: 12/29/18 01:11 Last Admin: 12/29/18 01:20 Dose: 0.5 mg Sodium Chloride (Normal Saline) 1,000 mls @ 999 mls/hr IV ASDIRECTED [facility] Last Admin: 12/29/18 01:20 Dose: 999 mls/hr Sodium Chloride (Normal Saline) 1,000 mls @ 999 mls/hr IV ASDIRECTED [facility] Last Admin: 12/29/18 03:11 Dose: 999 mls/hr Sodium Chloride (Normal Saline) 1,000 mls @ 100 mls/hr IV ASDIRECTED [facility] Last Admin: 12/29/18 06:00 Dose: 100 mls/hr Lorazepam (Ativan) 1 mg IV Q6H PRN PRN Reason: Nausea/Vomiting Ondansetron HCl (Zofran) 4 mg IVPUSH ONETIME ONE Stop: 12/29/18 01:11 Last Admin: 12/29/18 01:20 Dose: 4 mg - Exam Quality Assessment: DVT Prophylaxis General: Alert, Oriented, Cooperative, Moderate Distress Lungs: Clear to Auscultation, Normal Respiratory Effort Cardiovascular: Regular Rate, Regular Rhythm, No Murmurs GI/Abdominal Exam: Soft, No Organomegaly, Distended, Tender. No: Guarding, Rigid, Rebound Extremities: Non-Tender, Pedal Edema - Problem List Review Problem List Initiated/Reviewed/Updated: Yes - My Orders Last 24 Hours: My Active Orders 12/29/18 09:06 Cholangiopancreatography [MR] Urgent 12/29/18 10:00 Ampicillin/Sulbactam Na [Unasyn] 1.5 gm Sodium Chloride 0.9% [Normal Saline] 50 ml IV Q6HR 12/29/18 10:25 LORazepam [Ativan] 0.5 mg IV Q4H PRN 12/29/18 10:30 Sodium Chloride 0.9% @ 50 MLS/HR(1000ml) Sodium Chloride 0.9% [Normal Saline] 1 ,000 ml IV ASDIRECTED 12/29/18 Lunch Clear Liquid Diet [DIET] - Plan Plan:: ASSESSMENT / PLAN Cholelithiasis/cholecystitis-persistent pain since admission, elevated bilirubin noted in the emergency department. History of hepatic cirrhosis secondary to hepatitis C. -IV Fluids for rehydration Normal Saline decrease rate to 50 mL per hour -IV Antibiotic; Unasyn 1.5 g IV every 6 hours -pain control IV or PO ordered -MRCP later this morning -consult to Dr. Staton, Surgeon Hepatits C with cirrhosis, with ascites, with cirrhosis Tobacco Dependence smokes half a pack a day -decline patch or gum Methamphetamine abuse chronic - reports meth use since 1995. Snorts. last use last weekend. Hx of IVDU, denies alcohol use. -urine drug screen positive for opiates, oxycodone, meth, THC -monitor for withdrawal Maintenance issues -Orders home meds: on hold -Nutrition: NPO -Saeed catheter not indicated at this time -DVT: SCD, possible surgery -PPI; IV Protonix 40mg daily CODE STATUS: FULL Admission status: Admit to [address] [place] [address] justification. This patient will be admitted for inpatient services and is medically appropriate meeting medical necessity for inpatient admission as outlined in my documentation. I reasonably expect the patient will require inpatient services that span. Time over 2 midnights. I reasonably expect this patient to be discharged or transferred within 96 hours after admission to the [facility]. Disposition: home Primary care provider: Dr. Glen Fontana Hospitalist: Dr. Guzman
--- NOTE | 2018-12-29 11:28 | CONS ---
DATE OF SERVICE: 12/29/2018 REFERRING PHYSICIAN: CONSULTING PHYSICIAN: Cristian Staton MD CONSULTING PHYSICIAN: Wendy Cervantes, nurse practitioner. REASON FOR CONSULTATION: Right upper quadrant pain. HISTORY OF PRESENT ILLNESS: This is a 58-year-old male who presents to the emergency room with his right upper quadrant abdominal pain. This is acute. This is a new problem for him. Pain is 1 to 2/10 and is constant. Modified by cirrhosis secondary to hepatitis C. PAST MEDICAL HISTORY: 1. Hepatitis C with cirrhosis and ascites. 2. History of methamphetamine abuse. 3. Nephrolithiasis, was recently hospitalized for this. Underwent stent and is scheduled for stent removal on January 03, 2019. 4. Atrial fibrillation. 5. Gastroesophageal reflux disease. 6. Fractures of shoulder, collarbone, foot. 7. Attention deficit hyperactivity disorder. 8. Anxiety. 9. Depression. 10.History of myocardial infarction. 11.Coronary artery disease. PAST SURGICAL HISTORY: The patient reports having his appendix removed. SOCIAL HISTORY: He is currently a smoker. REVIEW OF SYSTEMS: GENERAL: The patient feels tired, but appropriate. HEENT: No significant changes. PULMONARY: No shortness of breath. CARDIOVASCULAR: History of myocardial infarction previously. GASTROINTESTINAL: Abdominal pain as described above. GENITOURINARY: As described above with respect to renal stents. PSYCHIATRIC: No symptoms. NEUROLOGIC: No symptoms. PHYSICAL EXAMINATION: VITAL SIGNS: Temperature 97.3, blood pressure 124/78, pulse 85, respirations 16. HEENT: Pupils are equal. NECK: Supple. LUNGS: Clear. CARDIOVASCULAR: Regular rhythm and rate. ABDOMEN: Distended, consistent with ascites. Mild pain with palpation in the right upper quadrant. EXTREMITIES: Full range of motion. NEUROLOGIC: Oriented x3. PSYCHIATRIC: No gross depression. LABORATORY DATA: Lab results show a normal white blood cell count. His total bilirubin is 2.2, AST is slightly elevated, alkaline phosphatase is slightly elevated at 138. ASSESSMENT AND PLAN: Right upper quadrant abdominal pain. PLAN: Most likely the elevated bilirubin is secondary to cirrhosis and ascites. We will order MRCP to rule this out as an ultrasound that was previously performed suggested a cholelithiasis, however, this is less likely. We will await MRCP results. Cristian Staton MD /[id number]
[2018-12-29] MEDS: Verapamil 120 MG Tab.ER PO SCH (12:48)
[2018-12-29] MEDS: DULoxetine 30 MG Cap PO SCH (12:48)
--- NOTE | 2018-12-29 12:56 | CRLMR ---
INDICATION: Elevated bilirubin. TECHNIQUE: An MRCP was attempted but cut short due to patient`s inability to breath hold. COMPARISON: Today`s abdomen/pelvis CT. FINDINGS: The examination is very limited and a poor quality due to motion artifact. As result, maximum intensity projection images of the bile ducts could not be obtained. No obvious bile duct enlargement is demonstrated on the images obtained. Cirrhosis is again demonstrated. No obvious liver neoplasm is demonstrated. Portal venous hypertension manifested as marked splenomegaly and large volume ascites is again demonstrated. The pancreas and adrenal glands are grossly negative. A mildly enlarged left kidney is again demonstrated. The left ureteral stent seen on CT is not visible on this exam. Presumed small renal parenchymal cysts are present bilaterally. The visualized bowel is unremarkable. A small left pleural effusion is again demonstrated. IMPRESSION: 1. Limited, poor quality exam due to motion artifact. MIP images of the bile ducts could not be obtained. No obvious bile duct enlargement based on the images obtained. 2. Cirrhosis and portal venous hypertension manifested as marked splenomegaly and large volume ascites. 3. Small left pleural effusion. 4. Mildly enlarged left kidney and presumed small renal parenchymal cysts bilaterally. Left ureteral stent seen on CT not visible on this exam. Dictated by Albert Lynne MD @ Dec 29 2018 12:42PM Signed by Dr. Albert Lynne @ Dec 29 2018 12:55PM
[2018-12-30] MEDS: oxyCODONE 5 MG Tab PO PRN ×2 (01:24→10:20)
[2018-12-30] MEDS: Morphine 2 MG/ML Syringe IVPUSH PRN ×2 (03:27→07:16)
[2018-12-30] MEDS: Ampicillin/Sulbactam Na 1.5 GM in Sodium Chloride 0.9% 50 ML IV SCH ×4 (03:27→22:25)
[2018-12-30] MEDS ORDERED: Pneumococcal Polyvalent-23 Vaccine 0.5 ML SDV IM ONE (10:00)
[2018-12-30] MEDS: Verapamil 120 MG Tab.ER PO SCH (10:19)
[2018-12-30] MEDS: DULoxetine 30 MG Cap PO SCH (10:19)
[2018-12-30] MEDS: Pantoprazole 40 MG Vial IVPUSH SCH (10:20)
[2018-12-30] MEDS ORDERED: Furosemide 40 MG/4 ML VIAL IVPUSH ONE (10:55)
--- NOTE | 2018-12-30 11:15 | PCM.PN ---
- General Info Date of Service: 12/30/18 Subjective Update: Mr. Mcdonald is shown modest improvement since yesterday, currently tolerating a clear liquid diet. He has been hemodynamically stable as well as afebrile. Pain seems to be improved, although bilirubin up mildly from yesterday. MRCP was obtained, suboptimal images because of motion artifact. No obvious ductal dilatation or obstruction identified. Functional Status: Reports: Tolerating Diet, Ambulating, Urinating - Review of Systems General: Reports: Weakness. Denies: Fever, Chills Pulmonary: Reports: No Symptoms Cardiovascular: Reports: No Symptoms Gastrointestinal: Reports: Abdominal Pain. Denies: Diarrhea, Difficulty Swallowing, Nausea, Vomiting - Patient Data Vitals - Most Recent: Last Vital Signs Temp 96.2 F 12/30/18 11:00 Pulse 70 12/30/18 11:00 Resp 16 12/30/18 11:00 BP 143/90 H 12/30/18 11:00 Pulse Ox 97 12/30/18 11:00 Weight - Most Recent: 257 lb 15.053 oz I&O - Last 24 Hours: Intake & Output 12/29/18 12/30/18 12/30/18 22:59 06:59 14:59 Intake Total 777 1650 Output Total 500 400 Balance 277 1250 Lab Results Last 24 Hours: Laboratory Results - last 24 hr 12/30/18 12/30/18 Range/Units 08:54 08:54 WBC 11.2 H (4.5-11.0) K/uL RBC 3.73 L (4.30-5.90) M/uL Hgb 12.4 (12.0-15.0) g/dL Hct 37.7 L (40.0-54.0) % MCV 101 H (80-98) fL MCH 33 H (27-31) pg MCHC 33 (32-36) % Plt Count 96 L (150-400) K/uL Neut % (Auto) 77 H (36-66) % Lymph % (Auto) 13 L (24-44) % [place] % (Auto) 8 H (2-6) % Eos % (Auto) 2 (2-4) % Baso % (Auto) 1 (0-1) % Sodium 134 L (140-148) mmol/L Potassium 3.8 (3.6-5.2) mmol/L Chloride 103 (100-108) mmol/L Carbon Dioxide 28 (21-32) mmol/L Anion Gap 6.8 (5.0-14.0) mmol/L BUN 16 (7-18) mg/dL Creatinine 1.0 (0.8-1.3) mg/dL Est Cr Clr Drug Dosing 78.29 mL/min Estimated GFR (MDRD) > 60 (>60) Glucose 119 H (74-106) mg/dL Calcium 7.5 L (8.5-10.1) mg/dL Total Bilirubin 3.3 H (0.2-1.0) mg/dL AST 52 H (15-37) U/L ALT 33 (12-78) U/L Alkaline Phosphatase 111 (46-116) U/L Total Protein 6.4 (6.4-8.2) g/dL Albumin 1.6 L (3.4-5.0) g/dL Globulin 4.8 H (2.3-3.5) g/dL Albumin/Globulin Ratio 0.3 L (1.2-2.2) Med Orders - Current: Current Medications Albuterol (Proventil Neb Soln) 2.5 mg NEB Q4H PRN PRN Reason: Shortness Of Breath/wheezing Albuterol/Ipratropium (Duoneb 3.0-0.5 Mg/3 Ml) 3 ml NEB QID PRN PRN Reason: Shortness Of Breath/wheezing Duloxetine HCl (Cymbalta) 30 mg PO DAILY [facility] Last Admin: 12/30/18 10:19 Dose: 30 mg Furosemide (Lasix) 40 mg IVPUSH NOW ONE Stop: 12/31/18 06:31 Ampicillin Sodium/Sulbactam (Sodium 1.5 gm/ Sodium Chloride) 50 mls @ 100 mls/ hr IV Q6HR [facility] Last Admin: 12/30/18 10:20 Dose: 100 mls/hr Ketorolac Tromethamine (Toradol) 30 mg IVPUSH Q6H PRN PRN Reason: Pain Stop: 01/04/19 10:44 Ondansetron HCl (Zofran Odt) 4 mg PO Q6H PRN PRN Reason: Nausea able to take PO Pantoprazole Sodium (Protonix) 40 mg PO ACBREAKFAST [facility] Verapamil HCl (Calan Sr) 240 mg PO DAILY [facility] Last Admin: 12/30/18 10:19 Dose: 240 mg Discontinued Medications Furosemide (Lasix) 40 mg IVPUSH NOW ONE Stop: 12/29/18 05:39 Last Admin: 12/29/18 06:00 Dose: 40 mg Furosemide (Lasix) 40 mg IVPUSH NOW ONE Stop: 12/30/18 10:56 Last Admin: 12/30/18 10:58 Dose: 40 mg Hydromorphone HCl (Dilaudid) 0.5 mg IVPUSH ONETIME ONE Stop: 12/29/18 01:11 Last Admin: 12/29/18 01:20 Dose: 0.5 mg Sodium Chloride (Normal Saline) 1,000 mls @ 999 mls/hr IV ASDIRECTED [facility] Last Admin: 12/29/18 01:20 Dose: 999 mls/hr Sodium Chloride (Normal Saline) 1,000 mls @ 999 mls/hr IV ASDIRECTED [facility] Last Admin: 12/29/18 03:11 Dose: 999 mls/hr Sodium Chloride (Normal Saline) 1,000 mls @ 100 mls/hr IV ASDIRECTED [facility] Last Admin: 12/29/18 06:00 Dose: 100 mls/hr Sodium Chloride (Normal Saline) 1,000 mls @ 50 mls/hr IV ASDIRECTED [facility] Last Admin: 12/29/18 22:06 Dose: 50 mls/hr Lorazepam (Ativan) 1 mg IV Q6H PRN PRN Reason: Nausea/Vomiting Lorazepam (Ativan) 0.5 mg IV Q4H PRN PRN Reason: Nausea/Vomiting Morphine Sulfate (Morphine) 2 mg IVPUSH Q2H PRN PRN Reason: Pain (severe 7-10) Last Admin: 12/30/18 07:16 Dose: 2 mg Ondansetron HCl (Zofran) 4 mg IVPUSH ONETIME ONE Stop: 12/29/18 01:11 Last Admin: 12/29/18 01:20 Dose: 4 mg Oxycodone HCl (Oxycodone) 5 mg PO Q4H PRN PRN Reason: Pain (moderate 4-6) Last Admin: 12/30/18 10:20 Dose: 5 mg Pantoprazole Sodium (Protonix Iv) 40 mg IVPUSH DAILY [facility] Last Admin: 12/30/18 10:20 Dose: 40 mg Pneumococcal Polyvalent Vaccine (Pneumovax 23) 0.5 ml IM .ONCE ONE Stop: 12/30/18 10:01 - Exam Quality Assessment: DVT Prophylaxis General: Alert, Oriented, Cooperative, No Acute Distress Lungs: Clear to Auscultation, Normal Respiratory Effort Cardiovascular: Regular Rate, Regular Rhythm, No Murmurs GI/Abdominal Exam: Soft, No Organomegaly, Distended, Tender. No: Guarding, Rigid, Rebound Extremities: Non-Tender, Pedal Edema - Problem List Review Problem List Initiated/Reviewed/Updated: Yes - My Orders Last 24 Hours: My Active Orders 12/30/18 10:43 Convert IV to Saline Lock [OM.PC] Routine 12/30/18 10:44 Ketorolac [Toradol] 30 mg IVPUSH Q6H PRN 12/30/18 Lunch Regular Diet [DIET] 12/31/18 05:00 CBC WITH AUTO DIFF [HEME] Timed COMPREHENSIVE METABOLIC PN,CMP [CHEM] Timed 12/31/18 06:30 Furosemide [Lasix] 40 mg IVPUSH NOW ONE 12/31/18 07:30 Pantoprazole [ProTONIX] 40 mg PO ACBREAKFAST - Plan Plan:: ASSESSMENT / PLAN Cholelithiasis/cholecystitis-pain improved, tolerating a clear liquid diet. No evidence of obvious ductal dilatation or obstruction noted on MRCP. -Saline lock IV -IV Antibiotic; Unasyn 1.5 g IV every 6 hours -pain control IV or PO ordered -Surgical follow-up per Dr. Staton -Advanced to regular diet Hepatits C with cirrhosis, with ascites, with cirrhosis-ascites increased with IV fluids -Furosemide 40 mg IV now and in a.m. Tobacco Dependence smokes half a pack a day -decline patch or gum Methamphetamine abuse chronic - reports meth use since 1995. Snorts. last use last weekend. Hx of IVDU, denies alcohol use. -urine drug screen positive for opiates, oxycodone, meth, THC -monitor for withdrawal Maintenance issues -Orders home meds: on hold -Nutrition: NPO -Saeed catheter not indicated at this time -DVT: SCD, possible surgery -PPI; IV Protonix 40mg daily CODE STATUS: FULL Admission status: Admit to [address] [place] [address] justification. This patient will be admitted for inpatient services and is medically appropriate meeting medical necessity for inpatient admission as outlined in my documentation. I reasonably expect the patient will require inpatient services that span. Time over 2 midnights. I reasonably expect this patient to be discharged or transferred within 96 hours after admission to the [facility]. Disposition: home Primary care provider: Dr. Glen Fontana Hospitalist: Dr. Guzman
[2018-12-30] MEDS: Ketorolac 30 MG/ML SDV IVPUSH PRN ×2 (13:16→20:25)
[2018-12-31] MEDS: Ampicillin/Sulbactam Na 1.5 GM in Sodium Chloride 0.9% 50 ML IV SCH ×2 (03:38→10:07)
[2018-12-31] MEDS ORDERED: Furosemide 40 MG/4 ML VIAL IVPUSH ONE (06:30)
[2018-12-31] MEDS ORDERED: Pantoprazole 40 MG Tab.CR PO SCH (07:30)
[2018-12-31] MEDS: Ketorolac 30 MG/ML SDV IVPUSH PRN (08:24)
[2018-12-31] MEDS: Verapamil 120 MG Tab.ER PO SCH (10:05)
[2018-12-31] MEDS: DULoxetine 30 MG Cap PO SCH (10:07)
[2018-12-31 10:56] VITALS: BP 114/71
--- NOTE | 2018-12-31 11:06 | PCM.DCSUM1 ---
Discharge Summary - Hospital Course Brief History: Mr. Mcdonald is a 58-year-old gentleman who was admitted through the emergency department with nausea, vomiting, and right upper quadrant abdominal pain secondary to cholecystitis. - Discharge Data Discharge Date: 12/31/18 Discharge Disposition: Home, Self-Care 01 Condition: Fair - Discharge Diagnosis/Problem(s) (1) Cholecystitis with cholelithiasis SNOMED Code(s): 900123746, 045181991 ICD Code: K80.10 - CALCULUS OF GALLBLADDER W CHRONIC CHOLECYST W/O OBSTRUCTION Status: Acute Current Visit: Yes (2) Cirrhosis SNOMED Code(s): 75401944 ICD Code: K74.60 - UNSPECIFIED CIRRHOSIS OF LIVER Status: Acute Priority : High Current Visit: Yes Qualifiers: Hepatic cirrhosis type: unspecified hepatic cirrhosis Ascites presence: with ascites Qualified Code(s): K74.60 - Unspecified cirrhosis of liver; R18.8 - Other ascites (3) Ascites SNOMED Code(s): 544722509 ICD Code: R18.8 - OTHER ASCITES Status: Acute Priority: High Current Visit: Yes (4) Ureteral calculus, left SNOMED Code(s): 30527716 ICD Code: N20.1 - CALCULUS OF URETER Status: Acute Current Visit: Yes (5) Hepatitis C, chronic Status: Acute Priority: High Current Visit: Yes - Patient Summary/Data Consults: Consultations 12/29/18 05:38 Consult to Physician [CONS] Routine Consulting Provider: Cristian Staton Call Completed to Consulting Physician: No Reason for Consult: cholelithiasis Special Instructions: large stone in neck of gallbladder. Hepatitis C with cirrhosis and ascitis by CTscan Hospital Course: Mr. Mcdonald is a 58-year-old gentleman who was admitted through the emergency department earlier this morning, with nausea, vomiting, right upper quadrant abdominal pain, secondary to cholecystitis. Since admission he has continued to experience right upper quadrant abdominal pain, bilirubin was found to be elevated on admission but he does have a known history of hepatic cirrhosis. Recently hospitalized in [place] for management of a left ureteral calculus and is status post placement of a nephrostomy tube. Underlying history of chronic drug abuse, urine drug screen at the time of admission positive for narcotics, methamphetamine, and marijuana. In addition to cirrhosis does have known hepatitis C. CT scan obtained in the emergency department showed evidence of cholelithiasis, he was felt to have cholecystitis is the underlying cause of this pain in symptoms. On admission he was given IV fluids for hydration as well as pain and nausea medication. Antibiotic therapy was initiated with Unasyn 1.5 g IV every 6 hours. He was seen and evaluated by Dr. Staton for surgical consult, felt to be a poor surgical candidate and conservative management was recommended if possible. He slowly improved during hospital stay with antibiotic therapy and by the time of discharge pain and resolved and he was tolerating a regular diet without significant difficulty. Activity will be as tolerated and he will remain on a low-fat diet. An additional 7 days of oral antibiotic therapy with Augmentin will be prescribed at the time of discharge. Follow-up appointment will be scheduled with his primary care provider within one week. - Patient Instructions Diet, Other: Low-fat diet Activity: As Tolerated Other/Special Instructions: Please schedule follow-up appointment with Dr. Fontana within one week. - Discharge Plan *PRESCRIPTION DRUG MONITORING PROGRAM REVIEWED*: Not Applicable *COPY OF PRESCRIPTION DRUG MONITORING REPORT IN PATIENT SHAMA: Not Applicable Prescriptions/Med Rec: Amoxicillin/Clavulanate K [Augmentin 875-125 MG] 1 tab PO BID #14 tablet Ketorolac [Toradol] 10 mg PO Q6H PRN #12 tab PRN Reason: Pain Lactobacillus Rhamnosus GG [Culturelle] 1 cap PO BID #60 cap Home Medications: Home Meds Verapamil HCl [Verapamil Sr] 240 mg PO DAILY 10/16/15 [History] Ibuprofen 800 mg PO ASDIRECTED 06/02/16 [History] DULoxetine [Cymbalta] 30 mg PO DAILY 12/29/18 [History] Furosemide [Lasix] 20 mg PO DAILY 12/29/18 [History] Omeprazole 20 mg PO DAILY 12/29/18 [History] Amoxicillin/Clavulanate K [Augmentin 875-125 MG] 1 tab PO BID #14 tablet [Rx] Ketorolac [Toradol] 10 mg PO Q6H PRN #12 tab 12/31/18 [Rx] Lactobacillus Rhamnosus GG [Culturelle] 1 cap PO BID #60 cap 12/31/18 [Rx] Referrals: Glen Fontana Sr, MD [Primary Care Provider] - - Discharge Summary/Plan Comment DC Time >30 min.: No - Patient Data Vitals - Most Recent: Last Vital Signs Temp 95.8 F 12/31/18 10:54 Pulse 84 12/31/18 10:54 Resp 18 12/31/18 10:54 BP 114/71 12/31/18 10:54 Pulse Ox 96 12/31/18 10:54 Weight - Most Recent: 257 lb 15.053 oz I&O - Last 24 hours: Intake & Output 12/30/18 12/31/18 12/31/18 22:59 06:59 14:59 Intake Total 500 Balance 500 Lab Results - Last 24 hrs: Laboratory Results - last 24 hr 12/31/18 12/31/18 Range/Units 04:30 04:30 WBC 9.5 (4.5-11.0) K/uL RBC 3.64 L (4.30-5.90) M/uL Hgb 11.9 L (12.0-15.0) g/dL Hct 36.6 L (40.0-54.0) % MCV 101 H (80-98) fL MCH 33 H (27-31) pg MCHC 33 (32-36) % Plt Count 95 L (150-400) K/uL Neut % (Auto) 75 H (36-66) % Lymph % (Auto) 13 L (24-44) % [place] % (Auto) 9 H (2-6) % Eos % (Auto) 2 (2-4) % Baso % (Auto) 1 (0-1) % Sodium 138 L (140-148) mmol/L Potassium 3.9 (3.6-5.2) mmol/L Chloride 104 (100-108) mmol/L Carbon Dioxide 29 (21-32) mmol/L Anion Gap 8.9 (5.0-14.0) mmol/L BUN 20 H (7-18) mg/dL Creatinine 1.1 (0.8-1.3) mg/dL Est Cr Clr Drug Dosing 71.17 mL/min Estimated GFR (MDRD) > 60 (>60) Glucose 103 (74-106) mg/dL Calcium 7.5 L (8.5-10.1) mg/dL Total Bilirubin 1.9 H (0.2-1.0) mg/dL AST 49 H (15-37) U/L ALT 32 (12-78) U/L Alkaline Phosphatase 136 H (46-116) U/L Total Protein 6.2 L (6.4-8.2) g/dL Albumin 1.5 L (3.4-5.0) g/dL Globulin 4.7 H (2.3-3.5) g/dL Albumin/Globulin Ratio 0.3 L (1.2-2.2) Med Orders - Current: Current Medications Albuterol (Proventil Neb Soln) 2.5 mg NEB Q4H PRN PRN Reason: Shortness Of Breath/wheezing Albuterol/Ipratropium (Duoneb 3.0-0.5 Mg/3 Ml) 3 ml NEB QID PRN PRN Reason: Shortness Of Breath/wheezing Duloxetine HCl (Cymbalta) 30 mg PO DAILY [facility] Last Admin: 12/31/18 10:07 Dose: 30 mg Ampicillin Sodium/Sulbactam (Sodium 1.5 gm/ Sodium Chloride) 50 mls @ 100 mls/ hr IV Q6HR [facility] Last Admin: 12/31/18 10:07 Dose: 100 mls/hr Ketorolac Tromethamine (Toradol) 30 mg IVPUSH Q6H PRN PRN Reason: Pain Stop: 01/04/19 10:44 Last Admin: 12/31/18 08:24 Dose: 30 mg Ondansetron HCl (Zofran Odt) 4 mg PO Q6H PRN PRN Reason: Nausea able to take PO Pantoprazole Sodium (Protonix) 40 mg PO ACBREAKFAST [facility] Last Admin: 12/31/18 08:21 Dose: 40 mg Verapamil HCl (Calan Sr) 240 mg PO DAILY [facility] Last Admin: 12/31/18 10:05 Dose: 240 mg Discontinued Medications Furosemide (Lasix) 40 mg IVPUSH NOW ONE Stop: 12/29/18 05:39 Last Admin: 12/29/18 06:00 Dose: 40 mg Furosemide (Lasix) 40 mg IVPUSH NOW ONE Stop: 12/30/18 10:56 Last Admin: 12/30/18 10:58 Dose: 40 mg Furosemide (Lasix) 40 mg IVPUSH NOW ONE Stop: 12/31/18 06:31 Last Admin: 12/31/18 06:14 Dose: 40 mg Hydromorphone HCl (Dilaudid) 0.5 mg IVPUSH ONETIME ONE Stop: 12/29/18 01:11 Last Admin: 12/29/18 01:20 Dose: 0.5 mg Sodium Chloride (Normal Saline) 1,000 mls @ 999 mls[facility] Last Admin: 12/29/18 01:20 Dose: 999 mls/hr Sodium Chloride (Normal Saline) 1,000 mls @ 999 mls/hr [facility] Last Admin: 12/29/18 03:11 Dose: 999 mls/hr Sodium Chloride (Normal Saline) 1,000 mls @ 100 mls/hr [facility] Last Admin: 12/29/18 06:00 Dose: 100 mls/hr Sodium Chloride (Normal Saline) 1,000 mls @ 50 mls/hr [facility] Last Admin: 12/29/18 22:06 Dose: 50 mls/hr Lorazepam (Ativan) 1 mg IV Q6H PRN PRN Reason: Nausea/Vomiting Lorazepam (Ativan) 0.5 mg IV Q4H PRN PRN Reason: Nausea/Vomiting Morphine Sulfate (Morphine) 2 mg IVPUSH Q2H PRN PRN Reason: Pain (severe 7-10) Last Admin: 12/30/18 07:16 Dose: 2 mg Ondansetron HCl (Zofran) 4 mg IVPUSH ONETIME ONE Stop: 12/29/18 01:11 Last Admin: 12/29/18 01:20 Dose: 4 mg Oxycodone HCl (Oxycodone) 5 mg PO Q4H PRN PRN Reason: Pain (moderate 4-6) Last Admin: 12/30/18 10:20 Dose: 5 mg Pantoprazole Sodium (Protonix Iv) 40 mg IVPUSH DAILY [facility] Last Admin: 12/30/18 10:20 Dose: 40 mg Pneumococcal Polyvalent Vaccine (Pneumovax 23) 0.5 ml IM .ONCE ONE Stop: 12/30/18 10:01 Last Admin: 12/30/18 15:39 Dose: 0.5 ml - Exam Quality Assessment: Reports: DVT Prophylaxis General: Reports: Alert, Oriented, Cooperative, No Acute Distress Lungs: Reports: Clear to Auscultation, Normal Respiratory Effort Cardiovascular: Reports: Regular Rate, Regular Rhythm, No Murmurs GI/Abdominal Exam: Soft, Non-Tender, No Organomegaly, Distended
== END 2018-12-31 12:00 | disposition home or self-care (01) | DRG 445 ==
LOC: JP.ED 00:18 → JP.MS 04:39
PROVIDERS: ADMIT Hospitalist; ATTEND Hospitalist
DX: K80.10 Calculus of gallbladder with chronic cholecystitis without obstruction (principal); R18.8 Other ascites; N20.1 Calculus of ureter; B18.2 Chronic viral hepatitis C; K74.60 Unspecified cirrhosis of liver; F15.10 Other stimulant abuse, uncomplicated; F12.90 Cannabis use, unspecified, uncomplicated; F11.90 Opioid use, unspecified, uncomplicated; R82.5 Elevated urine levels of drugs, medicaments and biological substances; F17.210 Nicotine dependence, cigarettes, uncomplicated; I10 Essential (primary) hypertension; Z86.79 Personal history of other diseases of the circulatory system; I25.10 Atherosclerotic heart disease of native coronary artery without angina pectoris; I25.2 Old myocardial infarction; K21.9 Gastro-esophageal reflux disease without esophagitis; F41.9 Anxiety disorder, unspecified; F32.9 Major depressive disorder, single episode, unspecified; F90.9 Attention-deficit hyperactivity disorder, unspecified type; H54.7 Unspecified visual loss; R76.11 Nonspecific reaction to tuberculin skin test without active tuberculosis; G44.89 Other headache syndrome; Z87.81 Personal history of (healed) traumatic fracture
CPT/HCPCS: 36415; 74176; 74181; 80053; 80305-QW; 81001; 82150; 83690; 85025; 90732; 96361; 96374; 96375; 99285-25; A9270-GY; C9113; J0287; J1170; J1885; J1940; J2270; J2405; J7030; J7050

== ENCOUNTER 2019-02-24 06:32 | Inpatient (IN) | payer MEDICAID ==
[2019-02-24] MEDS ORDERED: ceFAZolin/Dextrose,Iso-Osmotic 2 GM/50 ML Duplex Bag IV ONE (06:44)
[2019-02-24] MEDS ORDERED: ceFAZolin 2 GM in Premix Bag 1 BAG IV ONE (07:15)
[2019-02-24] MEDS ORDERED: Rocuronium 50 MG/5 ML Vial ONE (07:21)
[2019-02-24] MEDS ORDERED: Succinylcholine 200 MG/10 ML MDV ONE (07:21)
[2019-02-24] MEDS ORDERED: Dexamethasone 4 MG/ML SDV ONE (07:21)
[2019-02-24] MEDS ORDERED: Neostigmine Methylsulfate 1 MG/ML 5 ML Syringe ONE (07:21)
[2019-02-24] MEDS ORDERED: Ondansetron 4 MG/2 ML SDV ONE (07:21)
[2019-02-24] MEDS ORDERED: Glycopyrrolate 0.2 MG/ML 5 ML MDV ONE (07:21)
[2019-02-24] MEDS ORDERED: Propofol 200 MG/20 ML SDV ONE ×2 (07:21→10:03)
[2019-02-24] MEDS ORDERED: fentaNYL 250 MCG/5 ML SDV ONE (07:22)
[2019-02-24] MEDS: Dextrose 5%-Lactated Ringers 1,000 ML IV SCH ×2 (07:37→12:24)
[2019-02-24] MEDS ORDERED: fentaNYL 100 MCG/2 ML SDV IVPUSH ONE (10:34)
[2019-02-24] MEDS ORDERED: hydrOXYzine HCl 100 MG/2 ML SDV IM ONE (10:34)
[2019-02-24] MEDS ORDERED: HYDROmorphone/Normal Saline 15 MG/30 ML PCA IV ONE (11:03)
[2019-02-24] MEDS ORDERED: Ondansetron 4 MG/2 ML SDV IVPUSH PRN (13:53)
[2019-02-24] MEDS ORDERED: HYDROmorphone/Normal Saline 15 MG/30 ML PCA IV PRN (13:55)
[2019-02-24] MEDS ORDERED: Naloxone 0.4 MG/ML SDV IV PRN (13:55)
[2019-02-24] MEDS ORDERED: Dextrose 5%-Lactated Ringers 1,000 ML IV SCH (14:00)
[2019-02-24] MEDS: MVI, Adult with Vitamin K 10 ML, Thiamine 100 MG, Chromium/Copper/Mang/Selen/Zn 1 ML in... IV SCH ×8 (14:37→15:35)
[2019-02-24] MEDS: Potassium Chloride 20 MEQ, Lidocaine 1% 2 ML in Sodium Chloride 0.9% 100 ML IV SCH ×2 (14:37→16:52)
[2019-02-24] MEDS: Furosemide 20 MG/2 ML VIAL IVPUSH SCH (14:37)
--- NOTE | 2019-02-24 15:47 | CRLCR ---
Indication: Terry shunt placed. Technique: 281.5 seconds of intraoperative fluoroscopy was provided. Comparison: None Findings: Images demonstrate A catheter extending along the right chest wall. Impression: Intraoperative images obtained. Dictated by Mamta Hensley MD @ Feb 24 2019 3:45PM Signed by Dr. Mamta Hensley @ Feb 24 2019 3:46PM
[2019-02-24] MEDS: Pantoprazole 40 MG Vial IVPUSH SCH (16:53)
[2019-02-24] MEDS: ceFAZolin 2 GM in Premix Bag 1 BAG IV SCH ×2 (16:54→23:45)
[2019-02-25] MEDS: Furosemide 20 MG/2 ML VIAL IVPUSH SCH ×2 (01:41→13:27)
[2019-02-25] MEDS: Pantoprazole 40 MG Vial IVPUSH SCH (04:25)
[2019-02-25] MEDS: MVI, Adult with Vitamin K 10 ML, Thiamine 100 MG, Chromium/Copper/Mang/Selen/Zn 1 ML in... IV SCH ×4 (07:33)
[2019-02-25] MEDS: ceFAZolin 2 GM in Premix Bag 1 BAG IV SCH (07:33)
[2019-02-25] MEDS: DULoxetine 30 MG Cap PO SCH (08:53)
[2019-02-25] MEDS: Verapamil 120 MG Tab.ER PO SCH (08:53)
[2019-02-25] MEDS: Lisinopril 10 MG Tab PO SCH (08:53)
[2019-02-25] MEDS: Docusate Sodium 100 MG Cap PO SCH ×2 (08:54→21:10)
[2019-02-25] MEDS: Magnesium Sulfate/Water 2 GM in Premix Bag 1 BAG IV SCH ×3 (08:54→20:12)
[2019-02-25] MEDS: Pantoprazole 40 MG Tab.CR PO SCH (16:15)
[2019-02-26] MEDS: Magnesium Sulfate/Water 2 GM in Premix Bag 1 BAG IV SCH ×2 (01:45→07:49)
[2019-02-26] MEDS ORDERED: HYDROmorphone 2 MG Tab PO PRN (04:07)
[2019-02-26] MEDS: Furosemide 20 MG/2 ML VIAL IVPUSH SCH (05:29)
[2019-02-26] MEDS: Pantoprazole 40 MG Tab.CR PO SCH (07:44)
[2019-02-26 08:00] VITALS: BP 100/62
[2019-02-26] MEDS: Verapamil 120 MG Tab.ER PO SCH (08:37)
[2019-02-26] MEDS: Docusate Sodium 100 MG Cap PO SCH (08:40)
[2019-02-26] MEDS: Lisinopril 10 MG Tab PO SCH (08:40)
[2019-02-26] MEDS: DULoxetine 30 MG Cap PO SCH (08:40)
--- NOTE | 2019-02-26 10:57 | DISCH ---
ADMISSION DIAGNOSES: 1. Abdominal ascites. 2. Hepatitis C. 3. Cirrhosis of liver. 4. Essential hypertension. 5. Thrombocytopenia. 6. Hypertension. 7. Gastroesophageal reflux disease. 8. History of positive PPD. DISCHARGE DIAGNOSIS: Placement of Adam double valve pleural peritoneal shunt for a rapidly reoccurring tense ascites refractory to medical management. Date of surgery: 02/24/2019. HISTORY: Scott Mcdonald is a 58-year-old male with rapidly occurring ascites. After preoperative evaluation, discussion of possible risks and benefits, the patient wishes to proceed with surgical procedure. HOSPITAL COURSE: Scott Mcdonald had his surgical procedure on 02/24/2019. He had no operative complications. On postoperative day #1, he was started on a regular diet. IV decreased as magnesium was replaced. He was started on a stool softener, and he was taught how to use the Meraux pump. He also was given albumin 50 g IV. On postoperative day #2, he requested to be discharged to home. He did know how to use the Meraux shunt. He will be set up with home health care. He needed to return home to help care for his girlfriend, who had a back injury. PHYSICAL EXAMINATION: GENERAL: Scott is a 58-year-old male. Alert, orientated. VITAL SIGNS: Height is 5 feet 10 inches, weight is 240 pounds. TPR 96.8, 72, 18, blood pressure 100/62. HEENT: Negative. NECK: Supple. HEART: Regular rate and rhythm. LUNGS: Clear. ABDOMEN: Distended. Jazz in the right upper quadrant intact. Incision looks good. Meraux shunt was compressed 4 times by myself, and he compressed it twice showing me how he could do it. EXTREMITIES: Without peripheral edema. DISPOSITION: Discharged to home with home health care. FOLLOWUP APPOINTMENT: With Aneudy Covarrubias MD on 03/07/2019 at 10:00 a.m. PRESCRIPTIONS: 1. Dilaudid 2 mg every 6 hours p.r.n. pain, #28. 2. Colace 100 mg oral twice daily. He is to resume his home medication of: 1. Cymbalta 30 mg oral daily. 2. Lasix 20 mg oral daily. 3. Ibuprofen 800 mg every 8 hours p.r.n. pain. 4. Culturelle one capsule twice daily. 5. Lisinopril 10 mg oral daily. 6. Omeprazole 20 mg oral daily. 7. Verapamil sustained release 240 mg oral daily. DIET: Usual diet as tolerated. Drink 8 to 10 glasses of water a day. ACTIVITY: No lifting greater than 10 pounds for 6 weeks. Driving: Do not drive for 1 week and while on pain medication. Shower/bathing: May shower. DISCHARGE INSTRUCTIONS: Notify provider if any fever, increased pain, swelling, redness, drainage, nausea, or vomiting. Keep site clean and dry. SPECIAL INSTRUCTIONS: Meraux shunt push 6 times in a row 4 times a day. When you push shunt in, push it firmly and feel it compress and fill.
--- NOTE | 2019-02-28 12:19 | OR ---
DATE OF PROCEDURE: 02/24/2019 PREOPERATIVE DIAGNOSIS: Rapidly recurring tense ascites refractory to medical management. POSTOPERATIVE DIAGNOSIS: Rapidly recurring tense ascites refractory to medical management. OPERATIVE PROCEDURE: Placement of double valve Adam peritoneovenous shunt ([id number]). ANESTHESIA: General. INDICATION FOR PROCEDURE: A 58-year-old with hepatic cirrhosis secondary to hepatitis C infection with rapidly recurring tense ascites that is highly symptomatic. This has been occurring despite ongoing medical management and frequent paracentesis. After the treatment discussion was held, the plan is to proceed with a peritoneovenous shunt. Potential risks of the procedure including bleeding, infection, problems with shunt becoming occluding and becoming infective, perioperative bleeding were all reviewed and the patient wishes to proceed. DETAILS OF PROCEDURE: The patient was taken to the operating room and placed in a supine position. After general endotracheal anesthesia was induced, a Saeed catheter was inserted after which the abdomen, chest, and neck areas were prepped and draped. Initially, the right internal jugular vein was cannulated and guidewire manipulated from that point down into the inferior vena cava. Following this, then a transverse incision along the costal margin in the anterior axillary line was made and carried down through the skin and subcutaneous tissue and underlying fascia. The pocket was then created bluntly up over the ribs for the pump to be placed, and following this, then a needle was placed into the peritoneal cavity and a guidewire manipulated there. Fluoroscopy showed this going downward nicely along the right pericolic gutter area. The shunt was then attached to the tunneling device and was then tunneled from the abdominal incision up to neck area where small stab wound was made and the shunt was then pulled up through that area. The pump sat nicely over the rib area, and following this, then the abdominal portion of the shunt was placed over the catheter again with fluoroscopic surveillance showing this to be in the right lateral abdominal wall. Good control was confirmed through the shunt at this point and the valve adequately refilled after being compressed. The catheter was then cut on either sides so that the tip would be in the superior vena cava and this was then placed into that location by introducer and peel-away catheter. Once again, good flow was noted by Doppler through the shunt. The incisions were irrigated with Zyvox-containing saline solution. The pursestring suture around the abdominal guide catheter was then placed in the muscle and fascia through which I passed with a 3-0 Vicryl stitch and then the fascia was entirely closed with a 3-0 Vicryl stitch and the subdermal layer of 4-0 Vicryl stitch and skin agustín. The cervical incision was closed with a 4-0 Vicryl subdermal stitch and Steri-Strips and the patient was taken to the recovery room in satisfactory condition. Prior to placing the shunt, we removed 1500 mL of ascitic fluid and then replaced that with 1 L of normal saline to dilute the ascitic fluid and limit the possibility of postoperative bleeding. The patient was taken to the recovery room in satisfactory condition. There were no evident complications. Aneudy Covarrubias MD /[id number]
--- NOTE | 2019-02-28 13:34 | PN ---
DATE OF SERVICE: 02/25/2019 The patient is postop day 1 from a [place] shunt insertion. Clinically, he is doing well at this point and has some discomfort related to the shunt being compressed, but otherwise is stable. Labs showed relatively stable hemoglobin at 10.7. As expected, his PT/INR and D- dimers are elevated, but not too strikingly, so I think the dilution we did in the operating room had been successful. No signs of any clinical bleeding or fluid overload per se. The ammonia levels are in the low side at 30 and 29. His albumin level is 1.9 and has to be supplemented today. Otherwise, we will go to a regular diet, maximize activity, and work with pulmonary toilet. Magnesium was low, and we will begin supplementing that over the next three days as well. Aneudy Covarrubias MD /[id number]
== END 2019-02-26 11:17 | disposition home health service (06) | DRG 406 ==
LOC: JP.SDS 06:32 → JP.MS 10:20
PROVIDERS: ADMIT Surgery; ATTEND Surgery
PROC: 0W1G3JW Bypass Peritoneal Cavity to Upper Vein with Synthetic Substitute, Percutaneous Approach (ICD-10-PCS; principal; 2019-02-24)
PROC: 0JHT0YZ Insertion of Other Device into Trunk Subcutaneous Tissue and Fascia, Open Approach (ICD-10-PCS; 2019-02-24)
PROC: 0W9G3ZZ Drainage of Peritoneal Cavity, Percutaneous Approach (ICD-10-PCS; 2019-02-24)
DX: K74.60 Unspecified cirrhosis of liver (principal); R18.8 Other ascites; B19.20 Unspecified viral hepatitis C without hepatic coma; A60.00 Herpesviral infection of urogenital system, unspecified; D69.6 Thrombocytopenia, unspecified; I10 Essential (primary) hypertension; K21.9 Gastro-esophageal reflux disease without esophagitis; I25.2 Old myocardial infarction; F17.210 Nicotine dependence, cigarettes, uncomplicated; Z90.49 Acquired absence of other specified parts of digestive tract; Z86.19 Personal history of other infectious and parasitic diseases; Z87.442 Personal history of urinary calculi; Z79.899 Other long term (current) drug therapy; Z86.11 Personal history of tuberculosis
CPT/HCPCS: 36415; 76000; 80053; 82140; 83735; 84100; 85027; 85379; 85384; 85610; 85730; 94762; A9270-GY; C9113; J0330; J0690; J1100; J1170; J1940; J2001; J2020; J2405; J2704; J2710; J3010; J3410; J3411; J3475; J3480; J3490; J7030; J7042; P9047

== ENCOUNTER 2019-03-18 03:08 | Emergency (ER) | payer MEDICAID ==
--- NOTE | 2019-03-18 03:19 | EDM.PDOC ---
ED HPI GENERAL MEDICAL PROBLEM - General Chief Complaint: Flank Pain Stated Complaint: KIDNEY STONE Time Seen by Provider: 03/18/19 03:15 Source of Information: Reports: Patient, Old Records, RN History Limitations: Reports: No Limitations - History of Present Illness INITIAL COMMENTS - FREE TEXT/NARRATIVE: 58 yo male here with L flank pain. Had a CT scan here about 4 d ago that showed a 4 mm L ureteral stone. Has a stent on that side already. Here for increased pain. Pain now radiates from the L flank to the pelvic area. Had hematuria yesterday. No fever or nausea. Had a friend drop him off tonight. Onset: Gradual Onset Date: 03/17/19 Duration: Getting Worse Location: Reports: Back (L flank), Pelvis (to groin) Quality: Reports: Stabbing Severity: Severe Improves with: Reports: None Worsens with: Reports: Other (time) Context: Reports: Other (see HPI) Associated Symptoms: Denies: Fever/Chills, Nausea/Vomiting Treatments ONCOLOGY COORDINATOR: Reports: Other (see below) (none) Left Flank Pain Score (Numeric/FACES): 10 - Related Data Allergies Allergy/AdvReac Type Severity Reaction Status Date / Time No Known Allergies Allergy Verified 03/13/19 22:47 Home Meds: Home Meds Verapamil HCl [Verapamil Sr] 240 mg PO DAILY 10/16/15 [History] Ibuprofen 800 mg PO ASDIRECTED 06/02/16 [History] Furosemide [Lasix] 20 mg PO DAILY 12/29/18 [History] Omeprazole 20 mg PO DAILY 12/29/18 [History] Lactobacillus Rhamnosus GG [Culturelle] 1 cap PO BID #60 cap 12/31/18 [Rx] Lisinopril 10 mg PO DAILY 01/25/19 [History] Docusate Sodium [Colace] 100 mg PO BID cap 02/26/19 [Rx] Past Medical History HEENT History: Reports: Impaired Vision Cardiovascular History: Reports: Afib, CAD, Hypertension, [place] Other Cardiovascular History: afib rvr Respiratory History: Reports: Other (See Below) Other Respiratory History: positive mantoux Gastrointestinal History: Reports: GERD Genitourinary History: Reports: Renal Calculus Musculoskeletal History: Reports: Fracture, Other (See Below) Other Musculoskeletal History: shoulder, foot, coller bone Neurological History: Reports: Headaches, Chronic Psychiatric History: Reports: ADHD, Anxiety, Depression, Suicidal Ideation Immunologic History: Reports: Other (See Below) Other Immunologic History: hepatitis C - Infectious Disease History Infectious Disease History: Reports: Hepatitis C - Past Surgical History GI Surgical History: Reports: Appendectomy Musculoskeletal Surgical History: Reports: Carpal Tunnel, Shoulder Surgery, Other (See Below) Social & Family History - Family History Family Medical History: Noncontributory - Caffeine Use Caffeine Use: Reports: Coffee - Living Situation & Occupation Living situation: Reports: Single (lives in house with roommate in [facility]) ED ROS GENERAL - Review of Systems Review Of Systems: See Below Constitutional: Denies: Fever, Chills HEENT: Reports: No Symptoms Respiratory: Reports: No Symptoms Cardiovascular: Reports: No Symptoms GI/Abdominal: Reports: No Symptoms : Reports: Flank Pain (left), Hematuria (yesterday) Musculoskeletal: Reports: No Symptoms Skin: Reports: No Symptoms Neurological: Reports: No Symptoms Psychiatric: Reports: No Symptoms ED EXAM, RENAL/ - Physical Exam Exam: See Below Exam Limited By: No Limitations General Appearance: Alert, WD/WN, No Apparent Distress Eye Exam: Bilateral Eye: Normal Inspection Ears: Normal External Exam, Normal Canal, Hearing Grossly Normal Nose: Normal Inspection, No Blood Throat/Mouth: Normal Inspection, Normal Lips, Normal Oropharynx, Normal Voice, No Airway Compromise Head: Atraumatic, Normocephalic Neck: Normal Inspection Respiratory/Chest: No Respiratory Distress, Lungs Clear, Normal Breath Sounds, No Accessory Muscle Use Cardiovascular: Regular Rate, Rhythm, No Edema GI/Abdominal: Normal Bowel Sounds, Soft, No Distention, Tender (mild suprapubic tenderness). No: Non-Tender, Distended, Guarding, Rigid, Rebound Extremities: Normal Inspection. No: Non-Tender, No Pedal Edema Neurological: Alert, Oriented, CN II-XII Intact, Normal Cognition, No Motor/ Sensory Deficits Psychiatric: Normal Affect, Normal Mood Skin Exam: Warm, Dry, Intact, Normal Color, No Rash Course - Vital Signs Last Recorded V/S: Last Vital Signs Temp 36.7 C 03/18/19 03:21 Pulse 104 H 03/18/19 03:21 Resp 16 03/18/19 03:21 BP 176/103 H 03/18/19 03:21 Pulse Ox 100 03/18/19 03:21 - Orders/Labs/Meds Labs: Laboratory Tests 03/18/19 Range/Units 03:48 Urine Color Red A (YELLOW) Urine Appearance Cloudy A (CLEAR) Urine pH 8.5 H (5.0-8.0) Ur Specific [place] 1.020 (1.008-1.030) Urine Protein 100 H (NEGATIVE) mg/dL Urine Glucose (UA) Negative (NEGATIVE) mg/dL Urine Ketones Negative (NEGATIVE) mg/dL Urine Occult Blood Large H (NEGATIVE) Urine Nitrite Negative (NEGATIVE) Urine Bilirubin Small H (NEGATIVE) Urine Urobilinogen >=8.0 H (0.2-1.0) EU/dL Ur Leukocyte Esterase Negative (NEGATIVE) Urine RBC >100 H (0-5) Urine WBC 0-5 (0-5) Ur Epithelial Cells Rare Amorphous Sediment Not seen Urine Bacteria Moderate Urine Mucus Not seen Meds: Medications Discontinued Medications Generic Name Dose Route Start Last Admin Trade Name Freq PRN Reason Stop Dose Admin Ketorolac Tromethamine 60 mg 03/18/19 03:20 03/18/19 03:34 Toradol IM 03/18/19 03:21 60 mg ONETIME ONE Administration Oxycodone/Acetaminophen 1 tab 03/18/19 03:20 03/18/19 03:33 Percocet 325-5 Mg PO 03/18/19 03:21 1 tab ONETIME ONE Administration Departure - Departure Time of Disposition: 04:17 Disposition: Home, Self-Care 01 Condition: Fair Clinical Impression: Renal colic on left side - Discharge Information *PRESCRIPTION DRUG MONITORING PROGRAM REVIEWED*: No *COPY OF PRESCRIPTION DRUG MONITORING REPORT IN PATIENT SHAMA: No Instructions: Renal Colic, [id number] Referrals: PCP,None [Primary Care Provider] - Forms: ED Department Discharge Additional Instructions: Drink plenty of fluids. Take ibuprofen 600 mg every 6 hrs with food, next dose after 9 am today. Add either acetaminophen 1000 mg every 6 hrs OR Ducor for added pain relief. F/U with either your family doctor or your urologist later this week. Return for fever.
[2019-03-18] MEDS ORDERED: Ketorolac 60 MG/2 ML SDV IM ONE (03:20)
[2019-03-18] MEDS ORDERED: Acetaminophen/oxyCODONE 325-5 MG Tab PO ONE (03:20)
[2019-03-18 03:30] VITALS: BP 176/103; PULSE 104
== END 2019-03-18 04:24 | disposition home or self-care (01) ==
LOC: JP.ED 03:08
DX: N23 Unspecified renal colic (principal); I10 Essential (primary) hypertension; I25.10 Atherosclerotic heart disease of native coronary artery without angina pectoris; I48.91 Unspecified atrial fibrillation; I25.2 Old myocardial infarction; K21.9 Gastro-esophageal reflux disease without esophagitis; Z79.899 Other long term (current) drug therapy
CPT/HCPCS: 81001; 96372; 99284; A9270; J1885

== ENCOUNTER 2019-03-28 07:48 | Emergency (ER) | payer MEDICAID ==
[2019-03-28 08:17] VITALS: BP 153/94; PULSE 92
[2019-03-28] MEDS ORDERED: Acetaminophen 325 MG Tab PO ONE (08:33)
[2019-03-28] MEDS ORDERED: Ibuprofen 400 MG Tab PO ONE (08:34)
--- NOTE | 2019-03-28 08:45 | EDM.PDOC ---
ED HPI GENERAL MEDICAL PROBLEM - General Chief Complaint: Abdominal Pain Stated Complaint: KIDNEY STONE HAS BLOOD IN URINE Time Seen by Provider: 03/28/19 08:15 Source of Information: Reports: Patient - History of Present Illness INITIAL COMMENTS - FREE TEXT/NARRATIVE: 58 yo with concerns of lower abdominal pain and dysuria Recent ureteral stent placed in [place] about 1 month ago (left side). Subsequently in ED twice earlier this month for post-procedure pain. Since this time pain mostly resolved. About 3 days ago noticed dysuria, increasing supra-pubic and lower abdominal pain. Also notes urinary frequency and hematuria Pain is an ache, no radiation, constant. No fevers. No flank pain. No N/V Lower Abdomen Pain Score (Numeric/FACES): 8 - Related Data Allergies Allergy/AdvReac Type Severity Reaction Status Date / Time No Known Allergies Allergy Verified 03/28/19 08:01 Home Meds: Home Meds Verapamil HCl [Verapamil Sr] 240 mg PO DAILY 10/16/15 [History] Ibuprofen 800 mg PO ASDIRECTED 06/02/16 [History] Furosemide [Lasix] 20 mg PO DAILY 12/29/18 [History] Omeprazole 20 mg PO DAILY 12/29/18 [History] Lactobacillus Rhamnosus GG [Culturelle] 1 cap PO BID #60 cap 12/31/18 [Rx] Lisinopril 10 mg PO DAILY 01/25/19 [History] Past Medical History HEENT History: Reports: Impaired Vision Cardiovascular History: Reports: Afib, CAD, Hypertension, [place] Other Cardiovascular History: afib rvr Respiratory History: Reports: Other (See Below) Other Respiratory History: positive mantoux Gastrointestinal History: Reports: GERD Genitourinary History: Reports: Renal Calculus Musculoskeletal History: Reports: Fracture, Other (See Below) Other Musculoskeletal History: shoulder, foot, coller bone Neurological History: Reports: Headaches, Chronic Psychiatric History: Reports: ADHD, Anxiety, Depression, Suicidal Ideation Immunologic History: Reports: Other (See Below) Other Immunologic History: hepatitis C - Infectious Disease History Infectious Disease History: Reports: Hepatitis C - Past Surgical History Head Surgeries/Procedures: Reports: None GI Surgical History: Reports: Appendectomy Musculoskeletal Surgical History: Reports: Carpal Tunnel, Shoulder Surgery, Other (See Below) Social & Family History - Family History Family Medical History: Noncontributory - Tobacco Use Smoking Status *Q: Current Every Day Smoker Years of Tobacco use: 40 Packs/Tins Daily: 0.5 - Caffeine Use Caffeine Use: Reports: Coffee, Soda Caffeine Use Comment: daily coffee - Recreational Drug Use Recreational Drug Use: Yes Recreational Drug Type: Reports: Marijuana/Hashish Recreational Drug Use Frequency: Weekly - Living Situation & Occupation Living situation: Reports: Single (lives in house with roommate in [facility]) ED ROS GENERAL - Review of Systems Review Of Systems: See Below Constitutional: Reports: No Symptoms. Denies: Fever, Chills HEENT: Reports: No Symptoms Respiratory: Reports: No Symptoms Cardiovascular: Reports: No Symptoms Endocrine: Reports: No Symptoms GI/Abdominal: Reports: Abdominal Pain : Reports: Dysuria, Frequency, Hematuria Musculoskeletal: Reports: No Symptoms Skin: Reports: No Symptoms Neurological: Reports: No Symptoms Psychiatric: Reports: No Symptoms Hematologic/Lymphatic: Reports: No Symptoms Immunologic: Reports: No Symptoms ED EXAM, RENAL/ - Physical Exam Exam: See Below Exam Limited By: No Limitations General Appearance: Alert, No Apparent Distress Ears: Normal External Exam Nose: Normal Inspection Throat/Mouth: Normal Inspection Head: Atraumatic, Normocephalic Respiratory/Chest: No Respiratory Distress, Lungs Clear Cardiovascular: Regular Rate, Rhythm, Systolic Murmur GI/Abdominal: Normal Bowel Sounds, No Distention, Tender (mild supra-pubic and bilateral lower adbominal tenderness). No: Guarding, Rigid Back Exam: Normal Inspection. No: CVA Tenderness (R), CVA Tenderness (L) Extremities: Normal Inspection Neurological: Alert, Oriented Psychiatric: Normal Affect, Normal Mood Skin Exam: Warm, Dry Course - Vital Signs Last Recorded V/S: Last Vital Signs Temp 36.1 C 03/28/19 08:04 Pulse 92 03/28/19 08:04 Resp 20 03/28/19 08:04 BP 153/94 H 03/28/19 08:04 Pulse Ox 97 03/28/19 08:04 - Orders/Labs/Meds Labs: Laboratory Tests 03/28/19 Range/Units 08:59 Urine Color Red A (YELLOW) Urine Appearance Cloudy A (CLEAR) Urine pH 6.5 (5.0-8.0) Ur Specific [place] 1.025 (1.008-1.030) Urine Protein 100 H (NEGATIVE) mg/dL Urine Glucose (UA) Negative (NEGATIVE) mg/dL Urine Ketones Negative (NEGATIVE) mg/dL Urine Occult Blood Large H (NEGATIVE) Urine Nitrite Negative (NEGATIVE) Urine Bilirubin Small H (NEGATIVE) Urine Urobilinogen 2.0 H (0.2-1.0) EU/dL Ur Leukocyte Esterase Negative (NEGATIVE) Urine RBC Packed H (0-5) Urine WBC 5-10 H (0-5) Ur Epithelial Cells Few Amorphous Sediment Not seen Urine Bacteria Few Urine Mucus Few Meds: Medications Discontinued Medications Generic Name Dose Route Start Last Admin Trade Name Arsh PRN Reason Stop Dose Admin Acetaminophen 650 mg 03/28/19 08:33 03/28/19 08:40 Tylenol PO 03/28/19 08:34 650 mg NOW ONE Administration Ibuprofen 400 mg 03/28/19 08:34 03/28/19 08:40 Motrin PO 03/28/19 08:35 400 mg ONETIME ONE Administration - Re-Assessments/Exams Free Text/Narrative Re-Assessment/Exam: 58 yo presents with concerns of dysuria, hematuria, lower abdominal pain. No systemic symptoms. Mild lower abdominal and suprapubic tenderness. Overall abdominal exam re- assuring. No CVA tenderness. Normal vitals. He clearly has urinary symptoms and seems consistent with UTI. No flank pain or symptoms suggestive of ascending infection. This pain has been insidious and not consistent with recurrent stone. Somewhat complicated abdominal surgical hx but abdominal exam and history re- assuring this is not SBP or surgical process. Plan to check UA, like antibiotics. We did discuss returning to the ER for worsening symptoms, flank pain, fevers for another CT of the abdomen given his indwelling ureteral stent and risk of infectious complication from this or another renal stone. 03/28/19 08:41 Free Text/Narrative Re-Assessment/Exam: Patient eloped prior to completion of work-up Would suggest CT abdomen to patient given lack of infection in urine but gross hematuria to eval stones and ureteral stent 03/28/19 09:52 Departure - Departure Time of Disposition: 09:50 Disposition: Eloped 07 Clinical Impression: Hematuria Qualifiers: Hematuria type: gross Qualified Code(s): R31.0 - Gross hematuria - Discharge Information *PRESCRIPTION DRUG MONITORING PROGRAM REVIEWED*: No *COPY OF PRESCRIPTION DRUG MONITORING REPORT IN PATIENT SHAMA: No Referrals: PCP,None [Primary Care Provider] - Forms: ED Department Discharge
== END 2019-03-28 09:56 | disposition left against medical advice (07) ==
LOC: JP.ED 07:48
DX: R31.0 Gross hematuria (principal); I10 Essential (primary) hypertension; I25.10 Atherosclerotic heart disease of native coronary artery without angina pectoris; I48.91 Unspecified atrial fibrillation; I25.2 Old myocardial infarction; K21.9 Gastro-esophageal reflux disease without esophagitis; F17.210 Nicotine dependence, cigarettes, uncomplicated; Z90.49 Acquired absence of other specified parts of digestive tract; Z79.899 Other long term (current) drug therapy
CPT/HCPCS: 81001; 99284; A9270

== ENCOUNTER 2019-06-29 12:59 | Inpatient (IN) | payer MEDICAID ==
[2019-06-29] MEDS: Dextrose 5%-Lactated Ringers 1,000 ML IV SCH ×2 (14:04→22:56)
[2019-06-29] MEDS: Pantoprazole 40 MG Vial IV SCH (14:38)
[2019-06-29] MEDS ORDERED: Ondansetron 4 MG Tab.DIS PO PRN (14:59)
--- NOTE | 2019-06-29 15:48 | HP ---
HISTORY OF PRESENT ILLNESS: Scott presented to the clinic stating that he needed to be seen in the Surgery Department. An appointment was made and he was seen. He is having difficulty with ascites in his abdomen again. The [place] shunt which he had placed in February he states is not working any longer. He reports an increased pressure, nausea, vomiting, and the pain radiates to his back. On the pain scale of 1 to 10, he said it is a 10/10. REVIEW OF SYSTEMS: GENERAL: Reports a new upper respiratory infection with cough. Has had weight gain, chills. HEENT: Wears corrective lenses for far-sightedness. States he is hard of hearing in his left ear. CARDIOVASCULAR: Has no chest pain, but feels pressure in his chest and has swelling in ankles and feet. LUNGS: Shortness of breath and cough. GASTROINTESTINAL: Positive for nausea and vomiting. No red or black stools. MUSCULOSKELETAL: Bilateral knee and shoulder pain. NEUROLOGIC: Reports headache, dizziness, loss of coordination. PSYCHIATRIC: Positive for anxiety and depression. ENDOCRINE: Fatigue. Remainder of review of systems negative for any pertinent positives or negatives. PAST SURGICAL HISTORY: Most recent is [place] shunt in February 2019. PAST MEDICAL HISTORY: 1. Chronic hepatitis C. 2. Ureterolithiasis. 3. Essential hypertension. 4. Hyperuricemia with gout. 5. History of IV drug use. 6. History of cirrhosis. 7. History of alcohol use. 8. Nicotine addiction, smokes 1/2 pack of cigarettes a day. ALLERGIES: NO KNOWN MEDICAL ALLERGIES. SOCIAL HISTORY: Single, employed, disabled. Children; 1 son, age 39. FAMILY MEDICAL HISTORY: Father had heart valve problems, diabetes, and liver cirrhosis. Mother is 80, living and well. Grandparents, diabetes. Alcohol use, none. Tobacco, smokes half pack of cigarettes a day. Caffeine, 1 cup of coffee per day. SUBSTANCE ABUSE: None. CURRENT MEDICATIONS: 1. Hydrochlorothiazide 12.5 mg capsule 1 daily. 2. Motrin 800 mg 1 tablet every 8 hours p.r.n. pain. 3. Lisinopril 10 mg 1 tablet once a day. 4. Potassium chloride 1 tablet by mouth once daily. 5. Verapamil 240 mg once daily. OBJECTIVE: GENERAL: Scott Mcdonald is a 58-year-old male, height is 5 feet 10 inches, weight is 240 pounds, BMI is 34.4. VITAL SIGNS: TPR is 97.4, 104, 16, 134/89. HEENT: Negative. NECK: Supple. HEART: Regular rate and rhythm. LUNGS: Reveal rales in right mid and lower lobes. ABDOMEN: Very distended, firm, tender. Shunt feels collapsed. EXTREMITIES: Marked peripheral edema. SKIN: Pale, dry. NEUROLOGIC: Cranial nerves 2 through 12 intact. PSYCHIATRIC: Mood and affect appropriate. ASSESSMENT: 1. Marked ascites. 2. Chronic hepatitis C. 3. Cirrhosis of liver. 4. History of Adam shunt, ventriculoperitoneal shunt. 5. Hypertension. PLAN: 1. Admit to [place], [place] under the care of Aneudy Covarrubias MD. 2. Check PT, PTT, CMP, CBC, type and screen for 2 units of packed red blood cells. 3. Limited ultrasound for 2-rossana area of paracentesis. 4. Regular diet. 5. Up with assistance. 6. Vital signs every 4 hours. 7. IV D5LR to 100 mL per hour. 8. Paracentesis scheduled for 06/30/2019 at bedside, Aneudy Covarrubias MD. 9. SCDs. 10.Intake and output. 11.The patient will be admitted to inpatient. 12.Plan of stay, 2 nights and 3 days. 13.We will evaluate p.r.n. or in a.m. Jolie Ashraf PA-C /[id number]
[2019-06-29] MEDS ORDERED: diphenhydrAMINE 25 MG Cap PO PRN (17:02)
[2019-06-29] MEDS ORDERED: Naloxone 0.4 MG/ML SDV IVPUSH PRN (17:02)
[2019-06-29] MEDS ORDERED: Ondansetron 4 MG/2 ML SDV IVPUSH PRN (17:02)
[2019-06-29] MEDS: HYDROmorphone/Normal Saline 15 MG/30 ML PCA IV PRN (17:23)
[2019-06-29] MEDS: diphenhydrAMINE 50 MG/ML SDV IVPUSH PRN (20:36)
[2019-06-30] MEDS: diphenhydrAMINE 50 MG/ML SDV IVPUSH PRN ×3 (02:50→19:52)
[2019-06-30] MEDS ORDERED: Water For Injection, Sterile 10 ML ONE (06:24)
[2019-06-30] MEDS ORDERED: Alteplase 2 MG Vial IVPUSH ONE (08:00)
[2019-06-30] MEDS: Verapamil 120 MG Tab.ER PO SCH (08:55)
[2019-06-30] MEDS: Hydrochlorothiazide 12.5 MG Cap PO SCH (08:56)
[2019-06-30] MEDS: Lisinopril 10 MG Tab PO SCH (08:56)
[2019-06-30] MEDS: Potassium Chloride 10 MEQ Cap.ER PO SCH (08:57)
[2019-06-30] MEDS: Dextrose 5%-Lactated Ringers 1,000 ML IV SCH ×2 (09:00→19:53)
[2019-06-30] MEDS: Pantoprazole 40 MG Vial IV SCH (14:58)
[2019-07-01] MEDS ORDERED: Water For Injection, Sterile 50 ML SDV INJECT ONE (07:15)
[2019-07-01] MEDS ORDERED: Alteplase 2 MG Vial IVPUSH ONE (07:30)
[2019-07-01] MEDS ORDERED: Loratadine 10 MG Tab PO ONE (07:45)
[2019-07-01] MEDS: HYDROmorphone/Normal Saline 15 MG/30 ML PCA IV PRN (08:04)
[2019-07-01] MEDS ORDERED: Dextrose 5%-Lactated Ringers 1,000 ML IV SCH (08:30)
[2019-07-01] MEDS ORDERED: Pneumococcal Polyvalent-23 Vaccine 0.5 ML SDV IM ONE (10:00)
[2019-07-01] MEDS ORDERED: FLU Vacc QS2019-20(6MOS+)/PF 60 MCG/0.5 ML SYRINGE IM ONE (10:00)
[2019-07-01] MEDS: Verapamil 120 MG Tab.ER PO SCH (10:07)
[2019-07-01] MEDS: Potassium Chloride 10 MEQ Cap.ER PO SCH (10:07)
[2019-07-01] MEDS: Hydrochlorothiazide 12.5 MG Cap PO SCH (10:07)
[2019-07-01] MEDS: Lisinopril 10 MG Tab PO SCH (10:08)
[2019-07-01] MEDS: Pantoprazole 40 MG Vial IV SCH (15:48)
[2019-07-02] MEDS ORDERED: Dextrose 5%-Lactated Ringers 1,000 ML IV SCH (02:00)
[2019-07-02] MEDS: Hydrochlorothiazide 12.5 MG Cap PO SCH (08:15)
[2019-07-02] MEDS: Verapamil 120 MG Tab.ER PO SCH (08:15)
[2019-07-02] MEDS: Potassium Chloride 10 MEQ Cap.ER PO SCH (08:15)
[2019-07-02] MEDS: Lisinopril 10 MG Tab PO SCH (08:15)
[2019-07-02] MEDS ORDERED: Loratadine 10 MG Tab PO SCH (09:00)
[2019-07-02] MEDS ORDERED: FLU Vacc QS2019-20(6MOS+)/PF 60 MCG/0.5 ML SYRINGE IM ONE (10:00)
[2019-07-02] MEDS ORDERED: Albuterol/Ipratropium 3.0-0.5 MG/3 ML Neb Soln NEB SCH (11:00)
[2019-07-02 11:01] VITALS: BP 123/65; PULSE 90
--- NOTE | 2019-07-02 11:22 | PN ---
DATE OF SERVICE: 06/30/2019 The patient has been afebrile with stable vital signs. Labs do not look too terrible on admission yesterday, and bilirubin was 1.3. Liver function tests are otherwise essentially normal. The albumin is somewhat low at 2.2. He did undergo a paracentesis for 2500 mL today and then we injected the pump of the Adam shunt, which is presently with fluid, with 2 mg of Alteplase to try to unclot the pump. If the shunt remains occluded tomorrow, then we will likely replace the [place] shunt at that time. Otherwise, we will feed him today and recheck some labs in the morning, and 50 g of albumin will be administered today as well. Aneudy Covarrubias MD /[id number]
--- NOTE | 2019-07-02 11:48 | PN ---
DATE OF SERVICE: 07/01/2019 The patient has been afebrile with stable vital signs. The shunt which was injected with Alteplase yesterday is compressing and filling somewhat at this point, but it is not normally functioning yet. I think we will inject some Alteplase once again today and see how things go, rather than directly go to operation. If it seems to be functioning but he is still increasingly distended, we will probably simply place a 2nd shunt, which at this point he may need in terms of the amount of volume that needs to be drained over time. His albumin remains low, and in anticipation of removing quite a bit more peritoneal fluid, either operatively or by paracentesis over the next day or so, we will give him some albumin today. Aneudy Covarrubias MD /[id number]
--- NOTE | 2019-07-02 11:55 | PN ---
DATE OF SERVICE: 07/02/2019 SUBJECTIVE: He received 2 doses of Alteplase and his shunt is working this morning. It was checked with a Doppler by Aneudy Covarrubias MD. Scott feels like he is having less swelling in his abdomen as well as his scrotum and penis. The pain continues to be about the same. Temperature max of 100.1. He is coughing up some yellow to walters phlegm and spitting it into an emesis bag. REVIEW OF SYSTEMS: Remainder of review of systems negative for any pertinent positives and negatives. OBJECTIVE: GENERAL: Scott Mcdonald is a pleasant 58-year-old male. VITAL SIGNS: TPR 99.1, 97, 20. Blood pressure 126/76. HEENT: Negative. NECK: Supple. HEART: Regular rate and rhythm. LUNGS: He does reveal some rhonchi in the right middle lobe and lower lobe. Left is clear. ABDOMEN: Remains to be distended from ascites. EXTREMITIES: Negative. ASSESSMENT: 1. Abdominal ascites. 2. Chronic hepatitis C. 3. New cough. 4. Cirrhosis of the liver and then history of [place] ventriculoperitoneal shunt, which had gotten plugged but now clear. 5. Hypertension. PLAN: 1. Continue to pump the Adam shunt 10 times in a row 6 times daily. 2. DuoNeb per Respiratory Therapy q.i.d. and p.r.n. 3. Dr. Covarrubias will return to see the patient sometime today and he will have a paracentesis at bedside. 4. We will evaluate p.r.n. or in a.m. Jolie Ashraf PA-C /[id number]
--- NOTE | 2019-07-08 12:57 | DISCH ---
FINAL DIAGNOSES: 1. Hepatic cirrhosis with tense ascites. 2. Occluded [place] peritoneal venous shunt. 3. History of hepatitis C. 4. Upper respiratory infection. 5. History of hypertension. 6. History of asthma. 7. History of nephrolithiasis with a left ureteral stent. 8. Hypokalemia. SUMMARY: This is a 58-year-old with advanced hepatic cirrhosis secondary to hepatitis C and probably some alcohol use, presenting with tense ascites status post peritoneal venous shunt placement in February and up until recently has had a good result with that, presented to the clinic on 06/29/2019 with tense ascites and an obviously occluded shunt with the pump compressible. The plan was to proceed with admission with initial paracentesis and then management of the shunt either by injection of thrombolytic agents and removal and/or replacement of the shunt. On the initial night, the patient underwent a paracentesis of 2500 mL. The next day, the patient had Alteplase injected into the pump shunt, this would be on 06/30/2019. On the morning of 07/01/2019, the shunt was beginning to become somewhat compressible and did also refill, and we felt the 2nd dose of the Alteplase might be helpful. This was injected on 07/01/2019, and on 07/02/2019, the patient has obviously well-functioning shunt, the pump easily compressed and refilled rapidly and a Doppler confirmation of flow through the midportion of the shunt was confirmed. The patient, in order to facilitate resolution of symptoms on 07/02/2019, underwent another 2500 mL paracentesis which allowed catch him up in terms of the decompression, and hopefully at this point, the shunt will continue to function satisfactorily. The patient, at this point, appeared to be well-versed in terms of shunt pump function, and soon he will be discharged home with followup with Dr. Covarrubias at [facility] on 07/11/2019. The patient also developed an upper respiratory infection with some cough with productive sputum as well. At that time, he was started on Zithromax 500 mg daily x5 days. His potassium was also somewhat low and we started on KCl 20 mEq a day x30 days with refill x2, and we will check a BMP when we see him back in the clinic next week.
--- NOTE | 2019-07-08 13:12 | PROC ---
DATE OF PROCEDURE: 06/30/2019 SURGEON: Aneudy Covarrubias MD PREOPERATIVE DIAGNOSIS: Occluded [place] peritoneovenous shunt. POSTOPERATIVE DIAGNOSIS: Injection of thrombolytic agent to attempt declotting of peritoneovenous shunt (69773). ANESTHESIA: Local. INDICATION FOR PROCEDURE: The patient presents with an occluded peritoneovenous shunt. Plan will be to proceed with some thrombolytic agent, specifically Alteplase, into the pump with the hope that this might lyse the clot present and reopen the shunt without more additional operative procedure. Potential risk including bleeding was reviewed with the patient, and he wishes to proceed. DETAILS OF PROCEDURE: In the hospital room, then 2 mg of Alteplase was prepared in 1.5 mL of sterile water. The central area of pump was then isolated and prepped and draped. The skin over the surface was anesthetized with 1% lidocaine and a 27-gauge needle was then passed through the initial plastic layer of the pump shunt and injected without difficulty. The needle was then withdrawn and a dressing applied. At this point, we will have the patient begin trying to pump the shunt along with nursing assistance to see over the next 24 hours if we can get some improvement in the shunt function. Aneudy Covarrubias MD /[id number]
--- NOTE | 2019-07-08 14:06 | OR ---
DATE OF PROCEDURE: 07/01/2019 SURGEON: Aneudy Covarrubias MD DIAGNOSIS: Partially occluded [place] peritoneal venous shunt. OPERATIVE PROCEDURES: Injection of thrombolytic agent into partially occluded [place] peritoneal venous shunt (37238). ANESTHESIA: Local. INDICATION FOR PROCEDURE: Please see attached notes. DETAILS OF PROCEDURE: The patient was placed in a supine position. The area over the pump was then once again prepped and draped and the skin anesthetized with 1% lidocaine, 2 mg of Alteplase was reconstituted with 1.5 mL of sterile water and injected into the pump. There were no evident problems and the patient and nursing will be instructed to vigorously try pumping the shunt over the next 24 hours to see if we can get this more fully functional. Aneudy Covarrubias MD /[id number]
--- NOTE | 2019-07-08 14:45 | OR ---
DATE OF PROCEDURE: 06/30/2019 SURGEON: Aneudy Covarrubias MD PREOPERATIVE DIAGNOSIS: Dense ascites. POSTOPERATIVE DIAGNOSIS: Dense ascites. OPERATIVE PROCEDURE: Ultrasound-guided paracentesis (94480). ANESTHESIA: Local. INDICATION FOR PROCEDURE: The patient presents with an occluded peritoneal venous shunt with dense ascites. Plan is to proceed with an initial paracentesis for symptomatic decompression and then management of the shunt. The potential risks of procedure including bleeding, infection, injury to underlying viscera were reviewed, and the patient wishes to proceed. PROCEDURE IN DETAIL: In the right lateral abdomen of the patient while in supine position, had an adequate site marked by ultrasound for the paracentesis. That area was then prepped and draped, anesthetized with 1% lidocaine, and the paracentesis catheter entered. 2500 mL of clear serous fluid was evacuated. This was only sent for cytology. Upon completion of the 2500 mL removal, pursestring stitch of 2-0 Prolene stitch was placed around the catheter site which upon its withdrawal was then tied to prevent ongoing leak and a dressing applied. There were no evident complications. Aneudy Covarrubias MD /[id number]
--- NOTE | 2019-07-09 11:43 | OR ---
DATE OF PROCEDURE: 07/02/2019 SURGEON: Aneudy Covarrubias MD DIAGNOSIS: Tense ascites. OPERATIVE PROCEDURE: Ultrasound-guided paracentesis (92167). ANESTHESIA: Local. INDICATION FOR PROCEDURE: The patient now has what appears to be a fully functioning peritoneovenous shunt. This is deemed somewhat slow in catching up with his ascites, and to facilitate resolution of symptoms, he has to undergo an additional somewhat limited paracentesis. We will take around 2500 mL out once again and then likely discharge him home later today. Potential risks were reviewed once again including bleeding, infection, and injury to underlying viscera, and the patient wishes to proceed. DETAILS OF PROCEDURE: In the patient's hospital bed, the area was once again evaluated by ultrasound, and an area over the right mid abdomen was identified and prepped and draped. The area was anesthetized with 1% lidocaine and a paracentesis catheter placed. 2500 mL of clear serous fluid was sent. No adverse signs of abdominal fluid in this case. Upon completion of the 2500 mL withdrawal, a pursestring stitch of 2-0 Prolene stitch was placed around the catheter site end which was then drawn up and tied as the catheter was withdrawn and a dressing applied. There were no evident complications. Aneudy Covarrubias MD /[id number]
== END 2019-07-02 14:10 | disposition home or self-care (01) | DRG 920 ==
LOC: JP.ICU 12:59 → JP.MS 06-30 11:20
PROVIDERS: ADMIT Surgery; ATTEND Surgery
PROC: 0W9G3ZZ Drainage of Peritoneal Cavity, Percutaneous Approach (ICD-10-PCS; 2019-06-30)
PROC: 3E03317 Introduction of Other Thrombolytic into Peripheral Vein, Percutaneous Approach (ICD-10-PCS; principal; 2019-07-01)
PROC: 0W9G3ZZ Drainage of Peritoneal Cavity, Percutaneous Approach (ICD-10-PCS; 2019-07-02)
DX: T85.698A Other mechanical complication of other specified internal prosthetic devices, implants and grafts, initial encounter (principal); R18.8 Other ascites; K74.60 Unspecified cirrhosis of liver; B18.2 Chronic viral hepatitis C; F17.210 Nicotine dependence, cigarettes, uncomplicated; Z79.899 Other long term (current) drug therapy; Z87.442 Personal history of urinary calculi; M10.9 Gout, unspecified; Y84.8 Other medical procedures as the cause of abnormal reaction of the patient, or of later complication, without mention of misadventure at the time of the procedure
CPT/HCPCS: 36415; 80053; 83735; 84100; 85027; 85610; 85730; 86850; 86900; 86901; 88112; 88305; 94640; 94762; A9270-GY; C9113; J1170; J1200; J2997; J7121; J7620-GY; P9047

== ENCOUNTER 2019-07-13 08:57 | Inpatient (IN) | payer MEDICAID ==
[~2019-07-13 08:57] MED LIST: Bupivacaine 0.5%/EPINEPHrine 1:200,000 50 ML MDV ONE; Dexamethasone 4 MG/ML SDV ONE; Dextrose 5%-Lactated Ringers 1,000 ML IV SCH; Glycopyrrolate 0.2 MG/ML 5 ML MDV ONE; Linezolid 600 MG in Premix Bag 1 BAG IV ONE; Neostigmine Methylsulfate 1 MG/ML 5 ML Syringe ONE; Ondansetron 4 MG/2 ML SDV ONE; Propofol 200 MG/20 ML SDV ONE; Rocuronium 50 MG/5 ML Vial ONE; Succinylcholine 200 MG/10 ML MDV ONE; ceFAZolin 1 GM Vial ONE; fentaNYL 250 MCG/5 ML SDV ONE
[2019-07-13] MEDS ORDERED: Bupivacaine 0.5%/EPINEPHrine 1:200,000 50 ML MDV ONE (09:00)
[2019-07-13] MEDS ORDERED: ceFAZolin 1 GM Vial ONE (09:00)
[2019-07-13] MEDS: Albumin 25% 12.5 GM in Premix Bag 1 BAG IV SCH ×4 (12:58→19:50)
[2019-07-13] MEDS ORDERED: Naloxone 0.4 MG/ML SDV IV PRN (16:25)
[2019-07-13] MEDS: HYDROmorphone/Normal Saline 15 MG/30 ML PCA IV PRN (16:46)
[2019-07-13] MEDS: Dextrose 5%-Lactated Ringers 1,000 ML IV SCH (17:54)
[2019-07-14] MEDS ORDERED: Verapamil 120 MG Tab.ER PO ONE (06:00)
[2019-07-14] MEDS ORDERED: Linezolid 600 MG in Premix Bag 1 BAG IV ONE (08:00)
[2019-07-14] MEDS ORDERED: Rocuronium 50 MG/5 ML Vial ONE (08:04)
[2019-07-14] MEDS ORDERED: Glycopyrrolate 0.2 MG/ML 5 ML MDV ONE (08:04)
[2019-07-14] MEDS ORDERED: fentaNYL 250 MCG/5 ML SDV ONE (08:04)
[2019-07-14] MEDS ORDERED: Neostigmine Methylsulfate 1 MG/ML 5 ML Syringe ONE (08:04)
[2019-07-14] MEDS ORDERED: Ondansetron 4 MG/2 ML SDV ONE (08:04)
[2019-07-14] MEDS ORDERED: Succinylcholine 200 MG/10 ML MDV ONE (08:04)
[2019-07-14] MEDS ORDERED: Propofol 200 MG/20 ML SDV ONE (08:04)
[2019-07-14] MEDS ORDERED: Dexamethasone 4 MG/ML SDV ONE (08:04)
[2019-07-14] MEDS: Potassium Chloride 20 MEQ Tab.ER PO SCH (09:43)
[2019-07-14] MEDS: Lisinopril 10 MG Tab PO SCH (09:44)
[2019-07-14] MEDS: Furosemide 20 MG Tab PO SCH (09:44)
[2019-07-14] MEDS: Linezolid 600 MG in Premix Bag 1 BAG IV SCH ×2 (10:26→22:53)
[2019-07-14] MEDS: Albumin 25% 12.5 GM in Premix Bag 1 BAG IV SCH ×4 (10:26→17:43)
[2019-07-14] MEDS: Dextrose 5%-Lactated Ringers 1,000 ML IV SCH (13:53)
[2019-07-14] MEDS ORDERED: Calcium Carbonate 500 MG Tab.Chew PO ONE (22:58)
[2019-07-15] MEDS: Dextrose 5%-Lactated Ringers 1,000 ML IV SCH (04:13)
[2019-07-15] MEDS: HYDROmorphone/Normal Saline 15 MG/30 ML PCA IV PRN (05:09)
[2019-07-15] MEDS: Potassium Chloride 20 MEQ Tab.ER PO SCH (09:50)
[2019-07-15] MEDS: Furosemide 20 MG Tab PO SCH (09:50)
[2019-07-15] MEDS: Lisinopril 10 MG Tab PO SCH (09:50)
[2019-07-15] MEDS: Verapamil 120 MG Tab.ER PO SCH (09:50)
--- NOTE | 2019-07-15 10:15 | PN ---
DATE OF SERVICE: 07/13/2019 The patient presents late for a peritoneovenous shunt insertion today. He has one shunt that is functioning, but I think that, due to the ascites and such, it is not keeping up and a second shunt will be place today. He has gotten very good results since February up until the last week or two with the peritoneovenous shunts without any aspiration of encephalopathy and such by that means of treating his ascites. At any rate, he will be admitted overnight. We did do a 2500 mL paracentesis today, which has taken down the pressure. We will get him otherwise hydrated up intravascularly and plan to proceed with a peritoneovenous shunt tomorrow. Aneudy Covarrubias MD /[id number]
--- NOTE | 2019-07-15 10:45 | PN ---
DATE OF SERVICE: 07/14/2019 The patient has been clinically stable overnight, fairly sleepy. He is complaining of some discomfort. Of note, his bilirubin is 2.0, so we are certainly dealing with someone with some impaired liver function. INR was near-normal at 1.36. PTT was normal. So, I think we can go ahead and proceed with the peritoneal shunt. It will be done later today. We will draw some fluid off at the time of the shunt insertion to minimize problems with overloading the intravascular system as well as decrease the DIC risk. The shunt will be placed later this morning. Aneudy Covarrubias MD /[id number]
[2019-07-15] MEDS: Linezolid 600 MG in Premix Bag 1 BAG IV SCH ×2 (11:06→21:23)
--- NOTE | 2019-07-15 11:44 | PN ---
DATE OF SERVICE: 07/15/2019 The patient has been afebrile with stable vital signs. He was somewhat more comfortable after the paracentesis yesterday. He does have some degree of cellulitis around the paracentesis sites done around 2 weeks ago and is on some Zyvox for that. It appears to be improving somewhat. We will continue that today. His PT and PTT are a little higher than I would like for the shunt. Along with that, he continued to have small element of cellulitis. We will hold off on getting the shunt in until tomorrow. We will give him 1 unit of fresh-frozen plasma today as well as some additional albumin. Otherwise, maximize activity and work with pulmonary toilet. Aneudy Covarrubias MD /[id number]
[2019-07-15] MEDS ORDERED: Benzocaine/Cetylpyridinium/Menthol Lozenge MUCMEM PRN (14:08)
[2019-07-15] MEDS ORDERED: Tamsulosin 0.4 MG Cap.ER PO ONE (15:00)
[2019-07-15] MEDS: Tamsulosin 0.4 MG Cap.ER PO SCH (21:25)
[2019-07-16] MEDS: Dextrose 5%-Lactated Ringers 1,000 ML IV SCH ×2 (02:23→18:03)
--- NOTE | 2019-07-16 08:19 | PN ---
DATE OF SERVICE: 07/14/2019 The patient, over the morning, became more restless and having difficulty with respiratory pattern. Given this, we have decided to hold the peritoneovenous shunt placement, but instead do a large-volume paracentesis to let him recover from a respiratory standpoint. 5,500 mL of ascites was removed, and he is breathing quite a bit better now. We will assess things in the morning to see if, at that point, he is in satisfactory condition to proceed with the peritoneovenous shunt. We will recheck some labs in the morning. Aneudy Covarrubias MD /[id number]
[2019-07-16] MEDS: Linezolid 600 MG in Premix Bag 1 BAG IV SCH ×2 (09:14→21:34)
[2019-07-16] MEDS: Lisinopril 10 MG Tab PO SCH (09:15)
[2019-07-16] MEDS: Furosemide 20 MG Tab PO SCH (09:15)
[2019-07-16] MEDS: Verapamil 120 MG Tab.ER PO SCH (09:15)
[2019-07-16] MEDS: Potassium Chloride 20 MEQ Tab.ER PO SCH (09:15)
--- NOTE | 2019-07-16 09:15 | PN ---
DATE OF SERVICE: 07/16/2019 SUBJECTIVE: Scott is n.p.o. He will be having a [place] shunt placed this afternoon. He has no questions or concerns. Pain is controlled. OBJECTIVE: GENERAL: Scott is a 58-year-old male. He is alert and orientated. VITAL SIGNS: TPR is 98.2, 94, 18, blood pressure is 115/62. HEENT: Negative. NECK: Supple. HEART: Regular rate and rhythm. LUNGS: Clear. ABDOMEN: Distended, less firm than it was on admission. EXTREMITIES: Without peripheral edema. ASSESSMENT: Ascites, chronic hepatitis C, cirrhosis of the liver, status post ventral peritoneal shunt, hypertension. PLAN: Orders to be written post [place] shunt. Jolie Ashraf PA-C /[id number]
[2019-07-16] MEDS ORDERED: ceFAZolin 1 GM Vial ONE (10:16)
[2019-07-16] MEDS ORDERED: Bupivacaine 0.5%/EPINEPHrine 1:200,000 50 ML MDV ONE (10:17)
[2019-07-16] MEDS ORDERED: Dexamethasone 4 MG/ML SDV ONE (11:02)
[2019-07-16] MEDS ORDERED: Neostigmine Methylsulfate 1 MG/ML 5 ML Syringe ONE (11:02)
[2019-07-16] MEDS ORDERED: Glycopyrrolate 0.2 MG/ML 5 ML MDV ONE (11:02)
[2019-07-16] MEDS ORDERED: Ondansetron 4 MG/2 ML SDV ONE (11:02)
[2019-07-16] MEDS ORDERED: Propofol 200 MG/20 ML SDV ONE ×2 (11:02→14:17)
[2019-07-16] MEDS ORDERED: Succinylcholine 200 MG/10 ML MDV ONE (11:02)
[2019-07-16] MEDS ORDERED: fentaNYL 250 MCG/5 ML SDV ONE (11:03)
[2019-07-16] MEDS: Furosemide 20 MG/2 ML VIAL IV SCH ×2 (17:57→23:15)
[2019-07-16] MEDS: Tamsulosin 0.4 MG Cap.ER PO SCH (21:34)
[2019-07-17] MEDS: Furosemide 20 MG/2 ML VIAL IV SCH (05:22)
[2019-07-17] MEDS: HYDROmorphone/Normal Saline 15 MG/30 ML PCA IV PRN (08:11)
[2019-07-17] MEDS: Furosemide 20 MG/2 ML VIAL IVPUSH SCH ×2 (08:29→19:18)
[2019-07-17] MEDS: Furosemide 20 MG Tab PO SCH (08:32)
[2019-07-17] MEDS: Verapamil 120 MG Tab.ER PO SCH (08:32)
[2019-07-17] MEDS: Potassium Chloride 20 MEQ Tab.ER PO SCH (08:32)
[2019-07-17] MEDS: Lisinopril 10 MG Tab PO SCH (08:32)
[2019-07-17] MEDS: Linezolid 600 MG in Premix Bag 1 BAG IV SCH ×2 (10:39→22:21)
--- NOTE | 2019-07-17 11:10 | PN ---
DATE OF SERVICE: 07/17/2019 SUBJECTIVE: Scott is postoperative day #1. Vital signs have been stable. He has had low urinary output, so has had 3 doses of IV Lasix. [place] shunts are working and have been pumped regularly. 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 He states he is a little less uncomfortable and the main concern is he is hungry. REVIEW OF SYSTEMS: Remainder of review of systems negative for any pertinent positives and negatives. OBJECTIVE: GENERAL: Scott Mcdonald is a 58-year-old male. He is alert and orientated. VITAL SIGNS: TPR is 96.6, 80, 16, blood pressure is 112/67. HEENT: Negative. NECK: Supple. HEART: Regular rate and rhythm. LUNGS: Clear. ABDOMEN: Dressings on his left side are dry and intact. Abdomen is still distended but a little softer. EXTREMITIES: Without peripheral edema. ASSESSMENT: Placement of [place] shunt, left for tense ascites. 2 L of ascites were removed. Date of surgery: 07/16/2019. Surgeon, Aneudy Covarrubias MD. PLAN: 1. Continue to have Saeed catheter in to measure accurate urine output. 2. Consult dietitian. 3. Regular diet. 4. Lasix 20 mg IV push b.i.d. today only. 5. Labs are already ordered. 6. We will evaluate p.r.n. or in a.m. Jolie Ashraf PA-C /[id number]
--- NOTE | 2019-07-17 16:26 | OR ---
DATE OF PROCEDURE: 07/16/2019 SURGEON: Aneudy Covarrubias MD PREOPERATIVE DIAGNOSIS: Rapidly recurring tense ascites. POSTOPERATIVE DIAGNOSIS: Rapidly recurring tense ascites. OPERATIVE PROCEDURE: Placement of [place] peritoneovenous shunt via left internal jugular vein approach ([id number]). ANESTHESIA: General. SIEVE GRADER TENDER: Jolie Ashraf PA-C. INDICATIONS FOR PROCEDURE: This is a 58-year-old presenting with progressively worsening rapid ascites accumulation secondary to hepatic cirrhosis. He does have a functioning peritoneovenous shunt on the right side, which up until recently, functioned very satisfactorily for the patient since last summer. Originally, it became occluded, but was reopened with thrombolytic agents. It continues to function, but it is not keeping up with the flow of ascites. After discussion of treatment options, the patient wished to proceed with a second shunt insertion. This will be done on the left side. Potential risks were reviewed including bleeding, infection, injury to the underlying viscera in the abdomen or pulmonary or vascular structures on the chest, as well as possible problems with the shunt becoming occluded or nonfunctional once again, and the patient wishes to proceed. He is aware there is possibility of significant bleeding with the procedure as well. DETAILS OF PROCEDURE: The patient was taken to the operating room. After general endotracheal anesthesia was induced, a Saeed catheter was inserted, and the abdomen prepped and draped. Beginning in the left mid-subcostal area, ultrasound was used and that area was cleared for placement of the abdominal portion of the catheter. Following this, then the left internal jugular vein at central location was identified and cannulated, and guidewire passed from there into the superior vena cava. A second incision was then made transversely just below the costal margin on the left side and carried down through the skin and subcutaneous tissue and through the muscular fascia. A pocket was then bluntly constructed for the pump. The shunt was then tunneled between the abdominal and the small incision which was, at that point, had been made at jugular insertion site. One counterincision in the upper chest was required due to the distance of the 2 incisions, in order to get the venous catheter of the shunt up to the venous incision. A guidewire was then placed into the abdomen and directed down along the left pericolic gutter. Following this, then the abdominal portion of the shunt was placed over the introducer peel-away catheter without difficulty. Good flow was noted through the shunt. Prior to placing that through the peel-away catheter, 2 L of ascites was removed to provide some immediate comfort for the patient as well as decrease the extent of the flow in the immediate postoperative period, i.e., decreasing the risk of clinical DIC. After the abdominal catheter was placed, the venous catheter was cut such that the tip would lie in the area of the superior vena cava and right atrial junction, and it was placed over an introducer peel-away catheter without difficulty as well. The pump was noted, at this point, easily compress and refill indicating satisfactory function. The incisions were irrigated with Zyvox-containing saline solution. These were closed with 3 and 4-0 Vicryl stitch deep and agustín for the skin. Dressing was applied. The patient was taken to the recovery room in satisfactory condition. There were no evident complications. Aneudy Covarrubias MD /[id number]
--- NOTE | 2019-07-17 18:41 | OR ---
DATE OF PROCEDURE: 07/13/2019 SURGEON: Aneudy Covarrubias MD PREOPERATIVE DIAGNOSIS: Tense ascites. POSTOPERATIVE DIAGNOSIS: Tense ascites. OPERATIVE PROCEDURE: Paracentesis (38173). ANESTHESIA: Local. INDICATION FOR PROCEDURE: The patient presents with tense ascites. He was scheduled to have a peritoneovenous shunt placed today, but came quite late after apparently having been involved in some extensive alcohol use over the previous days as his significant other was unaware of where he was at that time. Given this, the plan will be to proceed with admission, where he will either undergo initial paracentesis to decompress what is otherwise quite tense ascites. Potential risks of the procedure including bleeding, infection, and injury to underlying viscera were reviewed, and the patient wishes to proceed. DETAILS OF PROCEDURE: In the ACU area of the hospital, the right mid-abdomen was prepped and draped. We elected to go adjacent to the previously ultrasound-marked sites, where he had recent paracentesis. This skin and underlying abdominal wall were then anesthetized with 1% lidocaine. The paracentesis catheter was then placed without difficulty and 2500 mL of serous-appearing fluid was evacuated. At that point, a pursestring stitch of 2-0 Prolene stitch was placed around the catheter entrance site, and the catheter was removed. This was withdrawn up, and the suture tied to prevent ongoing leakage. Dressing was applied. There were no evident complications. Aneudy Covarrubias MD /[id number]
[2019-07-17] MEDS: Dextrose 5%-Lactated Ringers 1,000 ML IV SCH (19:16)
[2019-07-17] MEDS: Tamsulosin 0.4 MG Cap.ER PO SCH (22:21)
[2019-07-18] MEDS: Potassium Chloride 20 MEQ Tab.ER PO SCH (08:12)
[2019-07-18] MEDS: Furosemide 20 MG Tab PO SCH (08:12)
[2019-07-18] MEDS: Lisinopril 10 MG Tab PO SCH (08:12)
[2019-07-18] MEDS: Verapamil 120 MG Tab.ER PO SCH (08:12)
--- NOTE | 2019-07-18 09:29 | PROC ---
DATE OF PROCEDURE: 07/14/2019 SURGEON: Aneudy Covarrubias MD PREOPERATIVE DIAGNOSIS: Tense ascites. POSTOPERATIVE DIAGNOSIS: Tense ascites. OPERATIVE PROCEDURE: Paracentesis ([id number]). ANESTHESIA: Local. INDICATION FOR PROCEDURE: The patient was scheduled to undergo a peritoneovenous shunt placement today, but he was noted to be fairly somnolent and after taking quite a bit in the way of pain medicine overnight, at this point, had issues with regard to adequate pulmonary toilet with the patient becoming fairly low in terms of O2 sats down into the 80% range when off of oxygen. Given this, the plan will be to proceed with high-volume paracentesis today. This, I think will allow him to resume some oral intake, as well as improve his ability to maintain adequate pulmonary toilet. Potential risks of the procedure were reviewed once again including bleeding, infection, possible injury to the underlying viscera, and he wishes to proceed. DETAILS OF PROCEDURE: At the bedside, the patient was placed in a supine position. The right abdomen was then prepped and draped. We elected to use an area adjacent to the previously ultrasound-marked paracentesis, this time without additional ultrasound being utilized and simply going adjacent to that area. The skin and underlying abdominal wall were then anesthetized with 1% lidocaine. The paracentesis catheter was placed. Initially, 60 mL of the fluid was removed and, in this case, was sent for cytologic evaluation. Following this, then 5.5 liters of fluid were removed by means of vacuum bottles. At that point, the catheter was removed and the area closed off with a pursestring stitch of 2-0 Prolene stitch. The patient was distinctly improved in terms of the amount of tension in his abdomen. As already stated, he had quite a bit less in the way of discomfort. The plan at this point will be to assess the patient tomorrow morning to see to what extent he is ready for the peritoneovenous shunt. We will recheck some labs in the morning as well, including PT and PTT. We will give him some additional albumin today as well. Aneudy Covarrubias MD /[id number]
[2019-07-18] MEDS: HYDROmorphone 2 MG Tab PO PRN ×3 (10:24→19:52)
--- NOTE | 2019-07-18 11:20 | OR ---
DATE OF PROCEDURE: 07/16/2019 SURGEON: Aneudy Covarrubias MD OPERATION PERFORMED: Placement of Adam peritoneovenous shunt via left internal jugular vein approach. ADDENDUM: Physician malt specifications control assistant, Jolie Ashraf, played an essential role in assisting in this case, helping to position the patient, retract structures as needed, as well as suturing and cutting sutures when indicated. Her presence improved patient safety and decreased the operative time. Aneudy Covarrubias MD /[id number]
--- NOTE | 2019-07-18 13:12 | PN ---
DATE OF SERVICE: 07/18/2019 SUBJECTIVE: Scott reports pain is controlled. Vital signs stable. He has no concerns or questions. LABORATORY DATA: Today, hemoglobin is 11. PT 15.7, INR 1.49. Fibrinogen 104.4. D-dimer 3420. BNP is 223. REVIEW OF SYSTEMS: Remainder of review of systems negative for any pertinent positives and negatives. OBJECTIVE: GENERAL: Scott Mcdonald is a pleasant 58-year-old male. He is alert and orientated. VITAL SIGNS: TPR is 97.7, 78, 16, blood pressure 109/56. HEENT: Negative. NECK: Supple. HEART: Regular rate and rhythm. LUNGS: Clear. SKIN: Incisions are healing well. EXTREMITIES: Without peripheral edema. [place] shunts have been pushed 10 times every 4 hours. ASSESSMENT: Placement of [place] shunt, left for tense ascites. 2 L of ascites were removed. Date of surgery: 07/16/2019. Surgeon, Aneudy Covarrubias MD. PLAN: 1. Discontinue TICKET SPECULATOR. 2. Dilaudid 2 to 4 mg every 4 hours p.r.n. pain. 3. Saline lock IV. 4. Labs are preordered for the a.m. 5. We will evaluate p.r.n. or in a.m. Jolie Ashraf PA-C /[id number]
[2019-07-18] MEDS ORDERED: Calcium Carbonate 500 MG Tab.Chew PO PRN (14:11)
[2019-07-18] MEDS: Tamsulosin 0.4 MG Cap.ER PO SCH (22:42)
[2019-07-19] MEDS: HYDROmorphone 2 MG Tab PO PRN ×5 (01:11→22:22)
[2019-07-19] MEDS: Potassium Phos in 0.9 % NaCl 15 MMOL in Premix Bag 1 BAG IV SCH ×6 (08:35→14:09)
[2019-07-19] MEDS: Magnesium Sulfate/Water 2 GM in Premix Bag 1 BAG IV SCH ×3 (08:36→21:19)
[2019-07-19] MEDS: Furosemide 20 MG Tab PO SCH (08:37)
[2019-07-19] MEDS: Lisinopril 10 MG Tab PO SCH (08:37)
[2019-07-19] MEDS: Potassium Chloride 20 MEQ Tab.ER PO SCH (08:37)
[2019-07-19] MEDS: Verapamil 120 MG Tab.ER PO SCH (08:37)
[2019-07-19] MEDS: Spironolactone 25 MG Tab PO SCH (09:13)
--- NOTE | 2019-07-19 14:59 | PN ---
DATE OF SERVICE: 07/19/2019 SUBJECTIVE: Scott has been pushing in the [place] shunts on both sides to the best of his ability. Nursing staff has been also actively working with his shunts. His abdomen remains to be distended, but a little bit less firm. Pain is controlled. Vital signs have been stable. REVIEW OF SYSTEMS: Remainder of review of systems negative for any pertinent positives and negatives. OBJECTIVE: GENERAL: Scott Mcdonald is a 58-year-old male, resting in bed. VITAL SIGNS: TPR is 96.9, 82, 18, blood pressure 99/61. HEENT: Negative. NECK: Supple. HEART: Regular rate and rhythm. LUNGS: Clear. ABDOMEN: Remains to be distended. It looks more distended today. EXTREMITIES: Negative. ASSESSMENT: Placement of [place] shunt, left for tense ascites. 2 L of ascites were removed. Date of surgery: 07/16/2019. Surgeon, Aneudy Covarrubias MD. PLAN: 1. Reinforce [place] shunt teaching with the patient to make sure that he is pushing the shunt hard enough. 2. Lasix, go home with that scheduled 20 mg daily. 3. Add spironolactone 25 mg daily p.o. 4. Check CBC, CMP, and phos in a.m. 5. Magnesium IV 2 g q.6 hours x48 hours. 6. K-Phos 45 millimoles IV today. 7. Continue use of IS. The patient's cough has improved. 8. Evaluate p.r.n. or in a.m. 9. Plan discharge in a.m. Jolie Ashraf PA-C /[id number]
[2019-07-19] MEDS: Tamsulosin 0.4 MG Cap.ER PO SCH (21:19)
[2019-07-20] MEDS: HYDROmorphone 2 MG Tab PO PRN ×2 (01:57→08:46)
[2019-07-20] MEDS: Magnesium Sulfate/Water 2 GM in Premix Bag 1 BAG IV SCH ×2 (01:58→08:17)
[2019-07-20] MEDS: Spironolactone 25 MG Tab PO SCH (08:21)
[2019-07-20] MEDS: Lisinopril 10 MG Tab PO SCH (08:21)
[2019-07-20] MEDS: Verapamil 120 MG Tab.ER PO SCH (08:21)
[2019-07-20] MEDS: Potassium Chloride 20 MEQ Tab.ER PO SCH (08:21)
[2019-07-20] MEDS: Furosemide 20 MG Tab PO SCH (08:21)
[2019-07-20 11:41] VITALS: BP 110/66; PULSE 88
--- NOTE | 2019-07-20 14:48 | DISCH ---
ADMISSION DIAGNOSES: 1. Ascites. 2. Chronic hepatitis C. 3. Hypertension. 4. Cirrhosis of the liver. 5. Status post ventriculoperitoneal shunt on right. DISCHARGE DIAGNOSES: 1. Abdominal paracentesis on 07/13/2019. 2. Placement of [place] peritoneal venous shunt via left internal jugular vein approach for rapidly recurring tense ascites on 07/16/2019. HISTORY: Scott Mcdonald is a 58-year-old male presenting with progressively worsening rapid ascites accumulation secondary to hepatic cirrhosis. He does have a functioning peritoneal venous shunt on the right side which he has had until last summer, but it became occluded. It was reopened with thrombolytic agent, but it continues to function but is not keeping up with the flow of ascites. After preoperative evaluation and discussion of possible risks and possible complications, he wished to have another [place] shunt put in on the left side. HOSPITAL COURSE: Scott was admitted on 07/13/2019. He was scheduled to have a peritoneal venous shunt placed, but he came quite late to his appointment and had been involved in some extensive alcohol use over the previous days. He was therefore admitted to the hospital on 07/13/2019 after he had a bedside paracentesis which 2500 mL of serous appearing fluid was evacuated. Lab tests were monitored and he was able to have the [place] shunt placed on 07/16/2019. He had no operative complications and both shunts were working and staff was pushing shunts as ordered. He had a Saeed catheter in to measure accurate intake and output. He was given IV Lasix. Continued to progress well. On 07/18/2019, his COOK SHIP was discontinued and his pain was well managed with oral Dilaudid. He was able to be discharged on 07/20. He had no complications throughout his hospitalization. Magnesium, potassium, and phosphate were replaced, and on day of discharge, his vital signs were stable, hemoglobin was 10.7, sodium 136, potassium 3.9, phosphorus was 3.2. He was able to be discharged to home, which he states is living with a friend on 07/20/2019. PHYSICAL EXAMINATION: GENERAL: Scott Mcdonald is a 58-year-old male. VITAL SIGNS: Height is 5 feet 10 inches, weight is 245 pounds. TPR 97, 87, 18, blood pressure 111/62. HEENT: Negative. NECK: Supple. HEART: Regular rate and rhythm. LUNGS: Clear. ABDOMEN: Rounded, moderately firm. He demonstrates to me showing how he uses the shunt. EXTREMITIES: Negative. DISPOSITION: Discharged to home. CONDITION: Stable and improving. FOLLOWUP: Appointment with Aneudy Covarrubias MD, on 07/25/2019 at 9 a.m. HOME MEDICATIONS: 1. Dilaudid 2 mg every 6 hours p.r.n. pain #28. 2. Potassium chloride 20 mEq oral daily, #30. 3. Spironolactone 25 mg oral daily, #30 with 4 refills. 4. He is to resume Motrin 800 mg 3 times a day p.r.n. pain. 5. Lisinopril 10 mg daily. 6. Verapamil 240 mg daily. 7. Hydrochlorothiazide 12.5 mg oral daily. DIET: Usual diet as tolerated. Drink 8 to 10 glasses of water a day. ACTIVITY: As tolerated. Driving: Do not drive while on Dilaudid pain medication. Shower/bathing: May shower. DISCHARGE INSTRUCTIONS: Notify provider if any fever, increased pain, nausea, or vomiting. Keep surgical sites clean and dry. SPECIAL INSTRUCTION: Push [place] shunt on the right and left sides 10 times every 4 hours.
== END 2019-07-20 13:00 | disposition home or self-care (01) | DRG 406 ==
LOC: JP.SDS 08:57 → EDSTATUS 09:00 → JP.MS 10:00
PROVIDERS: ADMIT Surgery; ATTEND Surgery
PROC: 0W9G3ZZ Drainage of Peritoneal Cavity, Percutaneous Approach (ICD-10-PCS; 2019-07-13)
PROC: 0W1G0JW Bypass Peritoneal Cavity to Upper Vein with Synthetic Substitute, Open Approach (ICD-10-PCS; principal; 2019-07-16)
PROC: 0JHT0YZ Insertion of Other Device into Trunk Subcutaneous Tissue and Fascia, Open Approach (ICD-10-PCS; 2019-07-16)
DX: K74.60 Unspecified cirrhosis of liver (principal); R18.8 Other ascites; I10 Essential (primary) hypertension; M10.9 Gout, unspecified; G47.00 Insomnia, unspecified; M19.012 Primary osteoarthritis, left shoulder; F17.208 Nicotine dependence, unspecified, with other nicotine-induced disorders
CPT/HCPCS: 36415; 36430; 76942; 80053; 82140; 83735; 83880; 84100; 85025; 85027; 85379; 85384; 85610; 85730; 86850; 86900; 86901; 88112; 88305; 94762; A9270-GY; J0330; J0690; J1100; J1170; J1790; J1940; J2020; J2405; J2704; J2710; J3010; J3475; J3490; J7121; P9017; P9047

== ENCOUNTER 2019-09-15 02:03 | Inpatient (IN) | payer MEDICAID ==
[2019-09-15] MEDS ORDERED: Furosemide 40 MG/4 ML VIAL IVPUSH ONE (02:45)
[2019-09-15] MEDS ORDERED: Spironolactone 25 MG Tab PO ONE (02:46)
--- NOTE | 2019-09-15 02:52 | EDM.PDOC ---
ED HPI GENERAL MEDICAL PROBLEM - General Chief Complaint: Abdominal Pain Stated Complaint: STOMACH PAIN Time Seen by Provider: 09/15/19 02:35 Source of Information: Reports: Patient History Limitations: Reports: No Limitations - History of Present Illness INITIAL COMMENTS - FREE TEXT/NARRATIVE: 59-year-old male arrives to the emergency room with abdominal distention, discomfort, looking to have a paracentesis. He has been out of his medications for the last 3 days and has not had them filled. He should be on spironolactone as well as Lasix. He has advanced cirrhosis, hepatitis C and chronic polysubstance abuse. No fevers or chills. He is a smoker, he does not feel short of breath but feels like it is tough to take a deep breath. Onset: Gradual Duration: Day(s): (Worsening over the past week) Associated Symptoms: Reports: Loss of Appetite, Malaise, Weakness. Denies: Confusion, Chest Pain, Cough, Fever/Chills, Headaches Abdominal Pain Score (Numeric/FACES): 5 - Related Data Allergies Allergy/AdvReac Type Severity Reaction Status Date / Time No Known Allergies Allergy Verified 09/15/19 04:17 Home Meds: Home Meds Verapamil HCl [Verapamil Sr] 240 mg PO DAILY 10/16/15 [History] Furosemide [Lasix] 40 mg PO DAILY 12/29/18 [History] Lisinopril 10 mg PO DAILY 01/25/19 [History] Potassium Chloride 10 meq PO DAILY 06/29/19 [History] hydroCHLOROthiazide [Hydrochlorothiazide] 12.5 mg PO DAILY 06/29/19 [History] Ibuprofen [Motrin] 800 mg PO TID PRN 07/11/19 [History] HYDROmorphone [Dilaudid] 2 mg PO Q6HR PRN #28 tablet 07/19/19 [Rx] Spironolactone [Aldactone] 100 mg PO DAILY 08/15/19 [History] Past Medical History HEENT History: Reports: Impaired Vision Cardiovascular History: Reports: Afib, CAD, Hypertension, SD Other Cardiovascular History: afib rvr Respiratory History: Reports: Other (See Below) Other Respiratory History: positive mantoux Gastrointestinal History: Reports: GERD Other Gastrointestinal History: acites Genitourinary History: Reports: Renal Calculus, Other (See Below) Other Genitourinary History: swollen scrutum from acites in abd. Musculoskeletal History: Reports: Fracture, Other (See Below) Other Musculoskeletal History: shoulder, foot, coller bone Neurological History: Reports: Headaches, Chronic Psychiatric History: Reports: ADHD, Anxiety, Depression, Suicidal Ideation Immunologic History: Reports: Other (See Below) Other Immunologic History: hepatitis C - Infectious Disease History Infectious Disease History: Reports: Chicken Pox, Hepatitis C, Measles, Mononucleosis, Mumps - Past Surgical History Head Surgeries/Procedures: Reports: None Cardiovascular Surgical History: Reports: None Respiratory Surgical History: Reports: None GI Surgical History: Reports: Appendectomy Other GI Surgeries/Procedures: paracentesis, abd. shunt x2 Male Surgical History: Reports: None Neurological Surgical History: Reports: None Musculoskeletal Surgical History: Reports: Carpal Tunnel, Shoulder Surgery, Other (See Below) Social & Family History - Family History Family Medical History: Noncontributory - Tobacco Use Smoking Status *Q: Current Every Day Smoker Years of Tobacco use: 25 Packs/Tins Daily: 0.5 - Caffeine Use Caffeine Use: Reports: None Caffeine Use Comment: daily coffee - Recreational Drug Use Recreational Drug Use: Yes Drug Use in Last 12 Months: Yes Recreational Drug Type: Reports: Marijuana/Hashish, Methamphetamine Other Recreational Drug Type: States its been a few a months since using meth but uses weed daily Recreational Drug Use Frequency: Daily - Living Situation & Occupation Living situation: Reports: Single (lives in house with roommate in [facility]) ED ROS GENERAL - Review of Systems Review Of Systems: See Below Constitutional: Reports: Malaise, Decreased Appetite. Denies: Fever, Chills HEENT: Reports: No Symptoms Respiratory: Denies: Shortness of Breath, Cough Cardiovascular: Denies: Chest Pain GI/Abdominal: Reports: Abdominal Pain, Distension Musculoskeletal: Reports: Back Pain Neurological: Reports: Weakness. Denies: Dizziness, Headache Psychiatric: Reports: No Symptoms ED EXAM, GENERAL - Physical Exam Exam: See Below Free Text/Narrative:: Patient generally has the appearance of fluid overload, anasarca Exam Limited By: No Limitations General Appearance: Alert, Mild Distress (Looks fairly uncomfortable) Eye Exam: Bilateral Eye: EOMI, Other (Mild scleral icterus is present) Head: Atraumatic Respiratory/Chest: No Respiratory Distress, Wheezing (Scattered expiratory wheezes are heard as well as extreme basilar rales bilaterally and posteriorly) Cardiovascular: Regular Rate, Rhythm GI/Abdominal: Distended, Rigid, Tender (Diffuse tenderness to palpation due to intense distention) (Male) Exam: Other (Patient has penile and scrotal edema, extension of his lower extremity edema.) Extremities: Other (Bilateral 2+ pitting edema into the thighs) Neurological: Alert, Oriented, No Motor/Sensory Deficits Psychiatric: Anxious Skin Exam: Warm, Dry Course - Vital Signs Last Recorded V/S: Last Vital Signs Temp 97.9 F 09/15/19 15:31 Pulse 98 09/15/19 15:31 Resp 16 09/15/19 15:31 BP 128/72 09/15/19 15:31 Pulse Ox 93 L 09/15/19 15:31 - Orders/Labs/Meds Orders: Active Orders 24 hr Category Date Time Status Sodium Chloride 0.9% [Saline Flush] Med 09/15/19 02:54 Active 10 ml FLUSH ASDIRECTED PRN Saline Lock Insert [OM.PC] Routine Oth 09/15/19 02:54 Ordered Medication Orders Furosemide (Lasix) 40 mg PO DAILY [facility] Last Admin: 09/15/19 10:03 Dose: 40 mg Hydrochlorothiazide (Hydrochlorothiazide) 12.5 mg PO DAILY [facility] Last Admin: 09/15/19 10:02 Dose: 12.5 mg Hydromorphone HCl (Dilaudid) 1 mg IVPUSH Q1H PRN PRN Reason: Pain Last Admin: 09/15/19 05:50 Dose: 1 mg Admin: 09/15/19 04:34 Dose: 1 mg Ibuprofen (Motrin) 800 mg PO TID PRN PRN Reason: Pain Last Admin: 09/15/19 16:23 Dose: 800 mg Lisinopril (Prinivil) 10 mg PO DAILY [facility] Last Admin: 09/15/19 10:03 Dose: 10 mg Potassium Chloride (Potassium Chloride) 10 meq PO DAILY [facility] Last Admin: 09/15/19 10:03 Dose: 10 meq Sodium Chloride (Saline Flush) 10 ml FLUSH ASDIRECTED PRN PRN Reason: Keep Vein Open Last Admin: 09/15/19 03:06 Dose: 10 ml Spironolactone (Aldactone) 100 mg PO DAILY [facility] Last Admin: 09/15/19 10:01 Dose: 100 mg Verapamil HCl (Calan Sr) 240 mg PO DAILY [facility] Last Admin: 09/15/19 10:02 Dose: 240 mg Labs: Laboratory Tests 09/15/19 09/15/19 Range/Units 02:59 02:59 WBC 4.8 (4.5-11.0) K/uL RBC 4.01 L (4.30-5.90) M/uL Hgb 13.0 D (12.0-15.0) g/dL Hct 39.0 L (40.0-54.0) % MCV 97 (80-98) fL MCH 32 H (27-31) pg MCHC 33 (32-36) % Plt Count 81 L (150-400) K/uL Neut % (Auto) 63 (36-66) % Lymph % (Auto) 17 L (24-44) % [place] % (Auto) 16 H (2-6) % Eos % (Auto) 3 (2-4) % Baso % (Auto) 1 (0-1) % Sodium 138 L (140-148) mmol/L Potassium 4.2 (3.6-5.2) mmol/L Chloride 104 (100-108) mmol/L Carbon Dioxide 26 (21-32) mmol/L Anion Gap 12.2 (5.0-14.0) mmol/L BUN 13 (7-18) mg/dL Creatinine 1.1 (0.8-1.3) mg/dL Est Cr Clr Drug Dosing 51.31 mL/min Estimated GFR (MDRD) > 60 (>60) Glucose 119 H (74-106) mg/dL Calcium 8.2 L (8.5-10.1) mg/dL Total Bilirubin 1.6 H (0.2-1.0) mg/dL AST 74 H D (15-37) U/L ALT 41 (12-78) U/L Alkaline Phosphatase 147 H (46-116) U/L Total Protein 7.7 (6.4-8.2) g/dL Albumin 2.5 L (3.4-5.0) g/dL Globulin 5.2 H (2.3-3.5) g/dL Albumin/Globulin Ratio 0.5 L (1.2-2.2) Meds: Medications Generic Name Dose Route Start Last Admin Trade Name Freq PRN Reason Stop Dose Admin Furosemide 40 mg 09/15/19 09:00 09/15/19 10:03 Lasix PO 40 mg DAILY [facility] Administration Hydrochlorothiazide 12.5 mg 09/15/19 09:00 09/15/19 10:02 Hydrochlorothiazide PO 12.5 mg DAILY [facility] Administration Hydromorphone HCl 1 mg 09/15/19 04:10 09/15/19 05:50 Dilaudid IVPUSH 1 mg Q1H PRN Administration Pain Ibuprofen 800 mg 09/15/19 08:35 09/15/19 16:23 Motrin PO 800 mg TID PRN Administration Pain Lisinopril 10 mg 09/15/19 09:00 09/15/19 10:03 Prinivil PO 10 mg DAILY [facility] Administration Potassium Chloride 10 meq 09/15/19 09:00 09/15/19 10:03 Potassium Chloride PO 10 meq DAILY [facility] Administration Sodium Chloride 10 ml 09/15/19 02:54 09/15/19 03:06 Saline Flush FLUSH 10 ml ASDIRECTED PRN Administration Keep Vein Open Spironolactone 100 mg 09/15/19 09:00 09/15/19 10:01 Aldactone PO 100 mg DAILY [facility] Administration Verapamil HCl 240 mg 09/15/19 09:00 09/15/19 10:02 Calan Sr PO 240 mg DAILY [facility] Administration Discontinued Medications Generic Name Dose Route Start Last Admin Trade Name Freq PRN Reason Stop Dose Admin Furosemide 80 mg 09/15/19 02:45 09/15/19 03:06 Lasix IVPUSH 09/15/19 02:46 80 mg ONETIME ONE Administration Hydromorphone HCl 1 mg 09/15/19 03:22 09/15/19 03:36 Dilaudid IVPUSH 09/15/19 03:23 1 mg ONETIME ONE Administration Albumin Human 25 gm in 100 mls @ 25 mls/hr 09/15/19 09:00 09/15/19 10:00 Albumin 25% IV 09/15/19 12:59 25 mls/hr ONETIME ONE Administration Lidocaine HCl 10 ml 09/15/19 03:15 09/15/19 03:32 Xylocaine 2% Jelly MUCMEM 09/15/19 03:16 10 ml ONETIME ONE Administration Spironolactone 100 mg 09/15/19 02:46 09/15/19 03:06 Aldactone PO 09/15/19 02:47 100 mg ONETIME ONE Administration - Re-Assessments/Exams Free Text/Narrative Re-Assessment/Exam: 09/15/19 02:52 A saline lock was ordered, and the patient was given 60 mg of IV Lasix and 100 mg of oral Spironolactone. He was also given 1 mg of IV Dilaudid. A UA was obtained for urine drug screen and UA, blood was obtained for CBC and CMP. Patient will likely need to be admitted for pain control until Dr. Covarrubias can perform a paracentesis. Dr. Fontana will be contacted for admission. 09/15/19 03:21 After Urojet anesthesia, a Saeed catheter was placed for close monitoring of input and output and obtaining a UA. Departure - Departure Time of Disposition: 03:55 Disposition: Admitted As Inpatient 64 Clinical Impression: Anasarca Abdominal pain Qualifiers: Abdominal location: generalized Qualified Code(s): R10.84 - Generalized abdominal pain Cirrhosis Qualifiers: Hepatic cirrhosis type: unspecified hepatic cirrhosis Ascites presence: with ascites Qualified Code(s): K74.60 - Unspecified cirrhosis of liver; R18.8 - Other ascites - Discharge Information Sepsis Event Note - Evaluation Sepsis Screening Result: Possible Sepsis Risk - Focused Exam Date Exam was Performed: 09/15/19 Time Exam was Performed: 17:46 - My Orders Last 24 Hours: My Active Orders 09/15/19 02:54 Sodium Chloride 0.9% [Saline Flush] 10 ml FLUSH ASDIRECTED PRN Saline Lock Insert [OM.PC] Routine - Assessment/Plan Last 24 Hours: My Active Orders 09/15/19 02:54 Sodium Chloride 0.9% [Saline Flush] 10 ml FLUSH ASDIRECTED PRN Saline Lock Insert [OM.PC] Routine
[2019-09-15] MEDS ORDERED: Sodium Chloride 0.9% 10 ML Syringe FLUSH PRN (02:54)
[2019-09-15] MEDS ORDERED: Lidocaine 2% Jelly 10 ML Urojet MUCMEM ONE (03:15)
[2019-09-15] MEDS ORDERED: HYDROmorphone 1 MG/ML Syringe IVPUSH ONE (03:22)
[2019-09-15] MEDS: HYDROmorphone 1 MG/ML Syringe IVPUSH PRN ×3 (04:34→19:18)
--- NOTE | 2019-09-15 08:08 | PCM.HP.2 ---
H&P History of Present Illness - General Date of Service: 09/15/19 Admit Problem/Dx: Admission Diagnosis/Problem Admission Diagnosis/Problem Abdominal pain Source of Information: Patient, EMS, Old Records - History of Present Illness Initial Comments - Free Text/Narative: Scott is a 59 year old male who has a history of Hepatis C with liver failure. He has had accumulation of peritoneal fluid and has had 2 [place] shunts placed. He recently ran out of his medicine and said the shunt wasn't working and came into the ER early this morning with abdominal pain and distension secondary to fluid retention. He also has a history of cirrhosis of the liver, urinary calculi, thrombocytopenia and angina pectoris with ASHD. Onset of Symptoms: Reports: Gradual Duration of Symptoms: Reports: Week(s): Location: Reports: Abdomen Associated Symptoms: Reports: Weakness Abdominal Pain Score (Numeric/FACES): 9 - Related Data Allergies/Adverse Reactions: Allergies Allergy/AdvReac Type Severity Reaction Status Date / Time No Known Allergies Allergy Verified 09/15/19 04:17 Home Medications: Home Meds Verapamil HCl [Verapamil Sr] 240 mg PO DAILY 10/16/15 [History] Furosemide [Lasix] 40 mg PO DAILY 12/29/18 [History] Lisinopril 10 mg PO DAILY 01/25/19 [History] Potassium Chloride 10 meq PO DAILY 06/29/19 [History] hydroCHLOROthiazide [Hydrochlorothiazide] 12.5 mg PO DAILY 06/29/19 [History] Ibuprofen [Motrin] 800 mg PO TID PRN 07/11/19 [History] HYDROmorphone [Dilaudid] 2 mg PO Q6HR PRN #28 tablet 07/19/19 [Rx] Spironolactone [Aldactone] 100 mg PO DAILY 08/15/19 [History] Past Medical History HEENT History: Reports: Impaired Vision Cardiovascular History: Reports: Afib, CAD, Hypertension, SD Other Cardiovascular History: afib rvr Respiratory History: Reports: Other (See Below) Other Respiratory History: positive mantoux Gastrointestinal History: Reports: GERD Other Gastrointestinal History: acites Genitourinary History: Reports: Renal Calculus, Other (See Below) Other Genitourinary History: swollen scrutum from acites in abd. Musculoskeletal History: Reports: Fracture, Other (See Below) Other Musculoskeletal History: shoulder, foot, coller bone Neurological History: Reports: Headaches, Chronic Psychiatric History: Reports: ADHD, Anxiety, Depression, Suicidal Ideation Immunologic History: Reports: Other (See Below) Other Immunologic History: hepatitis C - Infectious Disease History Infectious Disease History: Reports: Chicken Pox, Hepatitis C, Measles, Mononucleosis, Mumps - Past Surgical History Head Surgeries/Procedures: Reports: None Cardiovascular Surgical History: Reports: None Respiratory Surgical History: Reports: None GI Surgical History: Reports: Appendectomy Other GI Surgeries/Procedures: paracentesis, abd. shunt x2 Male Surgical History: Reports: None Neurological Surgical History: Reports: None Musculoskeletal Surgical History: Reports: Carpal Tunnel, Shoulder Surgery, Other (See Below) Social & Family History - Family History Family Medical History: Noncontributory - Tobacco Use Smoking Status *Q: Current Every Day Smoker Years of Tobacco use: 25 Packs/Tins Daily: 0.5 - Caffeine Use Caffeine Use: Reports: None Caffeine Use Comment: daily coffee - Recreational Drug Use Recreational Drug Use: Yes Drug Use in Last 12 Months: Yes Recreational Drug Type: Reports: Marijuana/Hashish, Methamphetamine Other Recreational Drug Type: States its been a few a months since using meth but uses weed daily Recreational Drug Use Frequency: Daily - Living Situation & Occupation Living situation: Reports: Single (lives in house with roommate in [place], [place].) H&P Review of Systems - Review of Systems: Review Of Systems: See Below General: Reports: Weakness, Weight Gain HEENT: Reports: No Symptoms Pulmonary: Reports: Shortness of Breath Cardiovascular: Reports: Dyspnea on Exertion Gastrointestinal: Reports: Abdominal Pain, Decreased Appetite, Distension Genitourinary: Reports: No Symptoms Musculoskeletal: Reports: Shoulder Pain, Muscle Pain Psychiatric: Reports: Depression, Anxiety Neurological: Reports: Difficulty Walking, Weakness Hematologic/Lymphatic: Reports: Easy Bruising Exam - Exam Exam: See Below - Vital Signs Vital Signs: Last Vital Signs Temp 97.6 F 09/15/19 04:15 Pulse 110 H 09/15/19 06:00 Resp 13 09/15/19 06:00 BP 151/119 H 09/15/19 06:00 Pulse Ox 95 09/15/19 06:00 Weight: 249 lb 9.6 oz - Exam General: Oriented, Cooperative, Moderate Distress HEENT: PERRLA, Hearing Intact, Mucosa Moist & [place], Nares Patent, Normal Nasal Septum, Posterior Pharynx Clear, Conjunctiva Clear, EOMI, EACs Clear, TMs Clear Neck: Supple Lungs: Clear to Auscultation Cardiovascular: Regular Rate GI/Abdominal Exam: Normal Bowel Sounds, Distended, Guarding (Male) Exam: Other (Edema of penis and scrotum) Extremities: Pedal Edema Peripheral Pulses: 1+: Radial (L), Radial (R) Skin: Warm, Dry Neurological: Cranial Nerves Intact Neuro Extensive - Mental Status: Alert, Oriented x3 DTR: 1+: Bicep (L), Bicep (R) Psychiatric: Alert, Labile Mood - Patient Data Lab Results Last 24 hrs: Laboratory Results - last 24 hr 09/15/19 09/15/19 09/15/19 Range/Units 02:59 02:59 03:30 WBC 4.8 (4.5-11.0) K/uL RBC 4.01 L (4.30-5.90) M/uL Hgb 13.0 D (12.0-15.0) g/dL Hct 39.0 L (40.0-54.0) % MCV 97 (80-98) fL MCH 32 H (27-31) pg MCHC 33 (32-36) % Plt Count 81 L (150-400) K/uL Neut % (Auto) 63 (36-66) % Lymph % (Auto) 17 L (24-44) % [place] % (Auto) 16 H (2-6) % Eos % (Auto) 3 (2-4) % Baso % (Auto) 1 (0-1) % Sodium 138 L (140-148) mmol/L Potassium 4.2 (3.6-5.2) mmol/L Chloride 104 (100-108) mmol/L Carbon Dioxide 26 (21-32) mmol/L Anion Gap 12.2 (5.0-14.0) mmol/L BUN 13 (7-18) mg/dL Creatinine 1.1 (0.8-1.3) mg/dL Est Cr Clr Drug Dosing 51.31 mL/min Estimated GFR (MDRD) > 60 (>60) Glucose 119 H (74-106) mg/dL Calcium 8.2 L (8.5-10.1) mg/dL Total Bilirubin 1.6 H (0.2-1.0) mg/dL AST 74 H D (15-37) U/L ALT 41 (12-78) U/L Alkaline Phosphatase 147 H (46-116) U/L Total Protein 7.7 (6.4-8.2) g/dL Albumin 2.5 L (3.4-5.0) g/dL Globulin 5.2 H (2.3-3.5) g/dL Albumin/Globulin Ratio 0.5 L (1.2-2.2) Urine Color Yellow (YELLOW) Urine Appearance Clear (CLEAR) Urine pH 6.0 (5.0-8.0) Ur Specific [place] 1.025 (1.008-1.030) Urine Protein Negative (NEGATIVE) mg/dL Urine Glucose (UA) Negative (NEGATIVE) mg/dL Urine Ketones Negative (NEGATIVE) mg/dL Urine Occult Blood Negative (NEGATIVE) Urine Nitrite Negative (NEGATIVE) Urine Bilirubin Negative (NEGATIVE) Urine Urobilinogen 0.2 (0.2-1.0) EU/dL Ur Leukocyte Esterase Negative (NEGATIVE) Urine RBC 0-5 (0-5) Urine WBC 0-5 (0-5) Ur Epithelial Cells Few Amorphous Sediment Not seen Urine Bacteria Few Urine Mucus Few Urine Opiates Screen (NEGATIVE) Ur Oxycodone Screen (NEGATIVE) Urine Methadone Screen (NEGATIVE) Ur Propoxyphene Screen (NEGATIVE) Ur Barbiturates Screen (NEGATIVE) Ur Tricyclics Screen (NEGATIVE) Ur Phencyclidine Scrn (NEGATIVE) Ur Amphetamine Screen (NEGATIVE) U Methamphetamines Scrn (NEGATIVE) Urine MDMA Screen (NEGATIVE) U Benzodiazepines Scrn (NEGATIVE) U Cocaine Metab Screen (NEGATIVE) U Marijuana (THC) Screen (NEGATIVE) 09/15/19 Range/Units 03:30 WBC (4.5-11.0) K/uL RBC (4.30-5.90) M/uL Hgb (12.0-15.0) g/dL Hct (40.0-54.0) % MCV (80-98) fL MCH (27-31) pg MCHC (32-36) % Plt Count (150-400) K/uL Neut % (Auto) (36-66) % Lymph % (Auto) (24-44) % [place] % (Auto) (2-6) % Eos % (Auto) (2-4) % Baso % (Auto) (0-1) % Sodium (140-148) mmol/L Potassium (3.6-5.2) mmol/L Chloride (100-108) mmol/L Carbon Dioxide (21-32) mmol/L Anion Gap (5.0-14.0) mmol/L BUN (7-18) mg/dL Creatinine (0.8-1.3) mg/dL Est Cr Clr Drug Dosing mL/min Estimated GFR (MDRD) (>60) Glucose (74-106) mg/dL Calcium (8.5-10.1) mg/dL Total Bilirubin (0.2-1.0) mg/dL AST (15-37) U/L ALT (12-78) U/L Alkaline Phosphatase (46-116) U/L Total Protein (6.4-8.2) g/dL Albumin (3.4-5.0) g/dL Globulin (2.3-3.5) g/dL Albumin/Globulin Ratio (1.2-2.2) Urine Color (YELLOW) Urine Appearance (CLEAR) Urine pH (5.0-8.0) Ur Specific [place] (1.008-1.030) Urine Protein (NEGATIVE) mg/dL Urine Glucose (UA) (NEGATIVE) mg/dL Urine Ketones (NEGATIVE) mg/dL Urine Occult Blood (NEGATIVE) Urine Nitrite (NEGATIVE) Urine Bilirubin (NEGATIVE) Urine Urobilinogen (0.2-1.0) EU/dL Ur Leukocyte Esterase (NEGATIVE) Urine RBC (0-5) Urine WBC (0-5) Ur Epithelial Cells Amorphous Sediment Urine Bacteria Urine Mucus Urine Opiates Screen Negative (NEGATIVE) Ur Oxycodone Screen Negative (NEGATIVE) Urine Methadone Screen Negative (NEGATIVE) Ur Propoxyphene Screen Negative (NEGATIVE) Ur Barbiturates Screen Negative (NEGATIVE) Ur Tricyclics Screen Negative (NEGATIVE) Ur Phencyclidine Scrn Negative (NEGATIVE) Ur Amphetamine Screen Presumptive positive H (NEGATIVE) U Methamphetamines Scrn Presumptive positive H (NEGATIVE) Urine MDMA Screen Negative (NEGATIVE) U Benzodiazepines Scrn Negative (NEGATIVE) U Cocaine Metab Screen Negative (NEGATIVE) U Marijuana (THC) Screen Presumptive positive H (NEGATIVE) Result Diagrams: 09/15/19 02:59 09/15/19 02:59 Sepsis Event Note - Evaluation Sepsis Screening Result: No Definite Risk - Focused Exam Vital Signs: Vital Signs Temp Pulse Resp BP Pulse Ox 09/15/19 06:00 110 H 13 151/119 H 95 09/15/19 04:15 97.6 F 107 H 18 161/97 H 94 L 09/15/19 02:25 97.3 F 103 H 22 H 175/111 H 97 09/15/19 02:24 97.3 F 103 H 22 H 175/111 H 97 Date Exam was Performed: 09/15/19 Time Exam was Performed: 08:02 Problem List Initiated/Reviewed/Updated: Yes Orders Last 24hrs: Active Orders 24 hr Category Date Time Status Admission Status [Patient Status] [ADT] Routine ADT 09/15/19 03:22 Active Communication Order [RC] Click to Edit Care 09/15/19 04:34 Active Intake and Output Strict [RC] ASDIRECTED Care 09/15/19 04:10 Active Notify Provider Consults [RC] ASDIRECTED Care 09/15/19 04:31 Active Vital Signs [RC] Q2H Care 09/15/19 04:15 Active Nothing Per Oral Diet [DIET] Diet 09/15/19 Breakfast Active US Guidance Paracentesis NC [US] Routine Exams 09/15/19 07:00 Taken HYDROmorphone [Dilaudid] Med 09/15/19 04:10 Active 1 mg IVPUSH Q1H PRN Sodium Chloride 0.9% [Saline Flush] Med 09/15/19 02:54 Active 10 ml FLUSH ASDIRECTED PRN Saline Lock Insert [OM.PC] Routine Oth 09/15/19 02:54 Ordered Medication Orders Hydromorphone HCl (Dilaudid) 1 mg IVPUSH Q1H PRN PRN Reason: Pain Last Admin: 09/15/19 05:50 Dose: 1 mg Admin: 09/15/19 04:34 Dose: 1 mg Sodium Chloride (Saline Flush) 10 ml FLUSH ASDIRECTED PRN PRN Reason: Keep Vein Open Last Admin: 09/15/19 03:06 Dose: 10 ml Assessment/Plan Comment:: Assessment/Plan: #1. Cirrhosis with accumulation of peritoneal fluid. Will consult Dr. Covarrubias to follow- [place] shunt. #2. Thrombocytopenia: #3. Hypertension: Will restart his medicine. #4. ASHD: Stable at the present time. #5. Renal Calculi
--- NOTE | 2019-09-15 08:29 | PCM.OPNOTE ---
- General Post-Op/Procedure Note Date of Surgery/Procedure: 09/15/19 Operative Procedure(s): Paracentesis Findings: Peritoneal fluid Pre Op Diagnosis: Cirrhosis with pertineal fluid accumulation Post-Op Diagnosis: 3000 ml pertineal fluid Anesthesia Technique: Local Primary Surgeon: Glen Fontana Sr Condition: Stable Free Text/Narrative:: Intake & Output 09/14/19 09/15/19 09/15/19 22:59 06:59 14:59 Output Total 1600 Balance -1600 Using the standard sterile technique. Cleaned the abd with cloriprep then injected with 5 cc of 1% lidocaine. Then placed the cath. into the abdominal wall and into the abdominal cavity and removed 3000 ml of yellow peritoneal fluid. He tolerated the procedure well. Dressing was placed over the puncture hole.
[2019-09-15] MEDS: Spironolactone 25 MG Tab PO SCH (10:01)
[2019-09-15] MEDS: Verapamil 120 MG Tab.ER PO SCH (10:02)
[2019-09-15] MEDS: Hydrochlorothiazide 12.5 MG Cap PO SCH (10:02)
[2019-09-15] MEDS: Furosemide 40 MG Tab PO SCH (10:03)
[2019-09-15] MEDS: Potassium Chloride 10 MEQ Cap.ER PO SCH (10:03)
[2019-09-15] MEDS: Lisinopril 10 MG Tab PO SCH (10:03)
[2019-09-15] MEDS: Ibuprofen 800 MG Tab PO PRN (16:23)
[2019-09-16] MEDS: HYDROmorphone 1 MG/ML Syringe IVPUSH PRN ×4 (00:06→11:00)
[2019-09-16] MEDS: Ibuprofen 800 MG Tab PO PRN (04:17)
[2019-09-16] MEDS: Verapamil 120 MG Tab.ER PO SCH (08:41)
[2019-09-16] MEDS: Potassium Chloride 10 MEQ Cap.ER PO SCH (08:41)
[2019-09-16] MEDS: Hydrochlorothiazide 12.5 MG Cap PO SCH (08:41)
[2019-09-16] MEDS: Spironolactone 25 MG Tab PO SCH (08:41)
[2019-09-16] MEDS: Furosemide 40 MG Tab PO SCH (08:42)
[2019-09-16] MEDS: Lisinopril 10 MG Tab PO SCH (08:42)
--- NOTE | 2019-09-16 12:28 | PCM.PN ---
- General Info Date of Service: 09/16/19 Subjective Update: Having increased pain in the abd. with distension. Functional Status: Reports: Pain Controlled - Review of Systems General: Reports: Weakness HEENT: Reports: No Symptoms Pulmonary: Reports: Shortness of Breath Cardiovascular: Reports: Dyspnea on Exertion Gastrointestinal: Reports: Abdominal Pain, Decreased Appetite Genitourinary: Reports: Other (Saeed cath in place) Musculoskeletal: Reports: No Symptoms Skin: Reports: No Symptoms Neurological: Reports: No Symptoms Psychiatric: Reports: No Symptoms - Patient Data Vitals - Most Recent: Last Vital Signs Temp 96.9 F 09/16/19 10:45 Pulse 57 L 09/16/19 10:45 Resp 16 09/16/19 10:45 BP 85/67 L 09/16/19 10:45 Pulse Ox 93 L 09/16/19 10:45 Weight - Most Recent: 241 lb 6.4 oz I&O - Last 24 Hours: Intake & Output 09/15/19 09/16/19 09/16/19 22:59 06:59 14:59 Intake Total 630 1420 480 Output Total 500 850 Balance 130 570 480 Lab Results Last 24 Hours: Laboratory Results - last 24 hr 09/16/19 09/16/19 09/16/19 Range/Units 04:00 04:00 04:00 WBC 5.3 (4.5-11.0) K/uL RBC 3.65 L (4.30-5.90) M/uL Hgb 11.9 L (12.0-15.0) g/dL Hct 35.2 L (40.0-54.0) % MCV 96 (80-98) fL MCH 33 H (27-31) pg MCHC 34 (32-36) % Plt Count 81 L (150-400) K/uL Neut % (Auto) 58 (36-66) % Lymph % (Auto) 23 L (24-44) % [place] % (Auto) 15 H (2-6) % Eos % (Auto) 4 (2-4) % Baso % (Auto) 1 (0-1) % PT 13.8 H (9.5-12.0) sec INR 1.30 H (0.80-1.20) Sodium 137 L (140-148) mmol/L Potassium 3.9 (3.6-5.2) mmol/L Chloride 105 (100-108) mmol/L Carbon Dioxide 26 (21-32) mmol/L Anion Gap 9.9 (5.0-14.0) mmol/L BUN 12 (7-18) mg/dL Creatinine 1.0 (0.8-1.3) mg/dL Est Cr Clr Drug Dosing 80.10 mL/min Estimated GFR (MDRD) > 60 (>60) Glucose 99 (74-106) mg/dL Calcium 7.8 L (8.5-10.1) mg/dL Total Bilirubin 1.3 H (0.2-1.0) mg/dL AST 54 H (15-37) U/L ALT 29 (12-78) U/L Alkaline Phosphatase 111 (46-116) U/L Total Protein 6.4 (6.4-8.2) g/dL Albumin 2.2 L (3.4-5.0) g/dL Globulin 4.2 H (2.3-3.5) g/dL Albumin/Globulin Ratio 0.5 L (1.2-2.2) Med Orders - Current: Current Medications Furosemide (Lasix) 40 mg PO DAILY [facility] Last Admin: 09/16/19 08:42 Dose: 40 mg Hydrochlorothiazide (Hydrochlorothiazide) 12.5 mg PO DAILY [facility] Last Admin: 09/16/19 08:41 Dose: 12.5 mg Hydromorphone HCl (Dilaudid) 1 mg IVPUSH Q1H PRN PRN Reason: Pain Last Admin: 09/16/19 11:00 Dose: 1 mg Ibuprofen (Motrin) 800 mg PO TID PRN PRN Reason: Pain Last Admin: 09/16/19 04:17 Dose: 800 mg Lisinopril (Prinivil) 10 mg PO DAILY [facility] Last Admin: 09/16/19 08:42 Dose: 10 mg Potassium Chloride (Potassium Chloride) 10 meq PO DAILY [facility] Last Admin: 09/16/19 08:41 Dose: 10 meq Sodium Chloride (Saline Flush) 10 ml FLUSH ASDIRECTED PRN PRN Reason: Keep Vein Open Last Admin: 09/15/19 03:06 Dose: 10 ml Spironolactone (Aldactone) 100 mg PO DAILY [facility] Last Admin: 09/16/19 08:41 Dose: 100 mg Verapamil HCl (Calan Sr) 240 mg PO DAILY [facility] Last Admin: 09/16/19 08:41 Dose: 240 mg Discontinued Medications Furosemide (Lasix) 80 mg IVPUSH ONETIME ONE Stop: 09/15/19 02:46 Last Admin: 09/15/19 03:06 Dose: 80 mg Hydromorphone HCl (Dilaudid) 1 mg IVPUSH ONETIME ONE Stop: 09/15/19 03:23 Last Admin: 09/15/19 03:36 Dose: 1 mg Albumin Human (Albumin 25%) 25 gm in 100 mls @ 25 mls/hr IV ONETIME ONE Stop: 09/15/19 12:59 Last Admin: 09/15/19 10:00 Dose: 25 mls/hr Lidocaine HCl (Xylocaine 2% Jelly) 10 ml MUCMEM ONETIME ONE Stop: 09/15/19 03:16 Last Admin: 09/15/19 03:32 Dose: 10 ml Spironolactone (Aldactone) 100 mg PO ONETIME ONE Stop: 09/15/19 02:47 Last Admin: 09/15/19 03:06 Dose: 100 mg - Exam General: Alert, Oriented HEENT: Pupils Equal, Pupils Reactive, EOMI, Mucous Membr. Moist/[place] Neck: Supple Lungs: Clear to Auscultation, Normal Respiratory Effort Cardiovascular: Regular Rate, Regular Rhythm GI/Abdominal Exam: Distended, Tender (Male) Exam: Other (scrotum edema with fluid retention) Back Exam: Normal Inspection, Full Range of Motion Extremities: Normal Inspection, Normal Range of Motion, Non-Tender, No Pedal Edema, Normal Capillary Refill Peripheral Pulses: 1+: Radial (L), Radial (R) Skin: Warm, Dry, Intact Neurological: No New Focal Deficit Psy/Mental Status: Alert, Normal Affect, Normal Mood Sepsis Event Note - Evaluation Sepsis Screening Result: No Definite Risk - Focused Exam Vital Signs: Vital Signs Temp Pulse Pulse Resp BP BP BP 09/16/19 10:45 96.9 F 57 L 16 85/67 L 09/16/19 08:42 87/61 L 09/16/19 08:41 69 87/61 L 09/16/19 08:19 98.3 F 69 16 87/61 L 09/16/19 04:08 97.7 F 78 18 108/49 L Pulse Ox 09/16/19 10:45 93 L 09/16/19 08:42 09/16/19 08:41 09/16/19 08:19 94 L 09/16/19 04:08 94 L Date Exam was Performed: 09/16/19 Time Exam was Performed: 13:59 - Problem List Review Problem List Initiated/Reviewed/Updated: Yes - My Orders Last 24 Hours: My Active Orders 09/15/19 18:55 Sequential Compression Device [OM.PC] Routine 09/15/19 Lunch Regular Diet [DIET] 09/16/19 12:19 US Guidance Paracentesis NC [US] Routine - Plan Plan:: Assessment/Plan: #1. Cirrhosis with accumulation of peritoneal fluid. Will tap the abd today as there is more fluid by clinical exam. Ultrasound is pending. #2. Thrombocytopenia: 58,000 today. #3. Hypertension: Is low will reduce the lisinopril. #4. ASHD: Stable at the present time. #5. Renal Calculi: History of Drained 8000 ml of fluid from the abd. Will discharge home.
--- NOTE | 2019-09-16 14:06 | PCM.DCSUM1 ---
Discharge Summary - Hospital Course Brief History: Admitted with a history of cirrhosis of the liver with pertoneal fluid with weakness and shortness of breath. He has Brandon shunts but not having relief of the fluid from the abd. Diagnosis: Stroke: No Modified [place] Scale: No Symptoms at All Modified [place] Scale Score: 0 - Discharge Data Discharge Date: 09/16/19 Discharge Disposition: Home, Self-Care 01 Condition: Stable - Referral to Home Health Primary Care Physician: Aneudy Covarrubias MD - Patient Summary/Data Operative Procedure(s) Performed: Paracentesis Consults: Consultations 09/15/19 08:29 Consult to Physician [CONS] Routine Consulting Provider: Aneudy Covarrubias Courtesy Call Completed to Consulting Physician: Yes Reason for Consult: Brandon Shunt Hospital Course: While in the hospital drained 11,000 ml of fluid from the abdomen. 3,000 the day of admission and 8,000 ml the day of discharge. His plt. were low and his scrotum was edematous. - Patient Instructions Diet: Heart Healthy Diet Activity: As Tolerated - Discharge Plan *PRESCRIPTION DRUG MONITORING PROGRAM REVIEWED*: No Home Medications: Home Meds Verapamil HCl [Verapamil Sr] 240 mg PO DAILY 10/16/15 [History] Furosemide [Lasix] 40 mg PO DAILY 12/29/18 [History] Lisinopril 10 mg PO DAILY 01/25/19 [History] Potassium Chloride 10 meq PO DAILY 06/29/19 [History] hydroCHLOROthiazide [Hydrochlorothiazide] 12.5 mg PO DAILY 06/29/19 [History] Ibuprofen [Motrin] 800 mg PO TID PRN 07/11/19 [History] HYDROmorphone [Dilaudid] 2 mg PO Q6HR PRN #28 tablet 07/19/19 [Rx] Spironolactone [Aldactone] 100 mg PO DAILY 08/15/19 [History] HYDROmorphone [Dilaudid] 1 mg IVPUSH Q1H PRN syringe 09/16/19 [Rx] Sodium Chloride 0.9% [Saline Flush] 10 ml FLUSH ASDIRECTED PRN syringe [Rx] Forms: ED Department Discharge Referrals: Aneudy Covarrubias MD [Primary Care Provider] - - Discharge Summary/Plan Comment DC Time >30 min.: Yes Discharge Summary/Plan Comment: Assessment/Plan: #1. Cirrhosis with accumulation of peritoneal fluid. Will tap the abd today as there is more fluid by clinical exam. Ultrasound is pending. #2. Thrombocytopenia: 58,000 today. #3. Hypertension: Is low will reduce the lisinopril. #4. ASHD: Stable at the present time. #5. Renal Calculi: History of Drained 8000 ml of fluid from the abd. Will discharge home. - General Info Date of Service: 09/16/19 Functional Status: Reports: Pain Controlled - Review of Systems General: Reports: Weakness HEENT: Reports: No Symptoms Pulmonary: Reports: Shortness of Breath Cardiovascular: Reports: No Symptoms Gastrointestinal: Reports: Abdominal Pain Genitourinary: Reports: Frequency Neurological: Reports: No Symptoms - Patient Data Vitals - Most Recent: Last Vital Signs Temp 96.9 F 09/16/19 10:45 Pulse 57 L 09/16/19 10:45 Resp 16 09/16/19 10:45 BP 85/67 L 09/16/19 10:45 Pulse Ox 93 L 09/16/19 10:45 Weight - Most Recent: 241 lb 6.4 oz I&O - Last 24 hours: Intake & Output 09/15/19 09/16/19 09/16/19 22:59 06:59 14:59 Intake Total 630 1420 480 Output Total 500 850 Balance 130 570 480 Lab Results - Last 24 hrs: Laboratory Results - last 24 hr 09/16/19 09/16/19 09/16/19 Range/Units 04:00 04:00 04:00 WBC 5.3 (4.5-11.0) K/uL RBC 3.65 L (4.30-5.90) M/uL Hgb 11.9 L (12.0-15.0) g/dL Hct 35.2 L (40.0-54.0) % MCV 96 (80-98) fL MCH 33 H (27-31) pg MCHC 34 (32-36) % Plt Count 81 L (150-400) K/uL Neut % (Auto) 58 (36-66) % Lymph % (Auto) 23 L (24-44) % [place] % (Auto) 15 H (2-6) % Eos % (Auto) 4 (2-4) % Baso % (Auto) 1 (0-1) % PT 13.8 H (9.5-12.0) sec INR 1.30 H (0.80-1.20) Sodium 137 L (140-148) mmol/L Potassium 3.9 (3.6-5.2) mmol/L Chloride 105 (100-108) mmol/L Carbon Dioxide 26 (21-32) mmol/L Anion Gap 9.9 (5.0-14.0) mmol/L BUN 12 (7-18) mg/dL Creatinine 1.0 (0.8-1.3) mg/dL Est Cr Clr Drug Dosing 80.10 mL/min Estimated GFR (MDRD) > 60 (>60) Glucose 99 (74-106) mg/dL Calcium 7.8 L (8.5-10.1) mg/dL Total Bilirubin 1.3 H (0.2-1.0) mg/dL AST 54 H (15-37) U/L ALT 29 (12-78) U/L Alkaline Phosphatase 111 (46-116) U/L Total Protein 6.4 (6.4-8.2) g/dL Albumin 2.2 L (3.4-5.0) g/dL Globulin 4.2 H (2.3-3.5) g/dL Albumin/Globulin Ratio 0.5 L (1.2-2.2) Med Orders - Current: Current Medications Furosemide (Lasix) 40 mg PO DAILY [facility] Last Admin: 09/16/19 08:42 Dose: 40 mg Hydrochlorothiazide (Hydrochlorothiazide) 12.5 mg PO DAILY [facility] Last Admin: 09/16/19 08:41 Dose: 12.5 mg Hydromorphone HCl (Dilaudid) 1 mg IVPUSH Q1H PRN PRN Reason: Pain Last Admin: 09/16/19 11:00 Dose: 1 mg Ibuprofen (Motrin) 800 mg PO TID PRN PRN Reason: Pain Last Admin: 09/16/19 04:17 Dose: 800 mg Lisinopril (Prinivil) 2.5 mg PO DAILY [facility] Potassium Chloride (Potassium Chloride) 10 meq PO DAILY [facility] Last Admin: 09/16/19 08:41 Dose: 10 meq Sodium Chloride (Saline Flush) 10 ml FLUSH ASDIRECTED PRN PRN Reason: Keep Vein Open Last Admin: 09/15/19 03:06 Dose: 10 ml Spironolactone (Aldactone) 100 mg PO DAILY [facility] Last Admin: 09/16/19 08:41 Dose: 100 mg Verapamil HCl (Calan Sr) 240 mg PO DAILY [facility] Last Admin: 09/16/19 08:41 Dose: 240 mg Discontinued Medications Furosemide (Lasix) 80 mg IVPUSH ONETIME ONE Stop: 09/15/19 02:46 Last Admin: 09/15/19 03:06 Dose: 80 mg Hydromorphone HCl (Dilaudid) 1 mg IVPUSH ONETIME ONE Stop: 09/15/19 03:23 Last Admin: 09/15/19 03:36 Dose: 1 mg Albumin Human (Albumin 25%) 25 gm in 100 mls @ 25 mls/hr IV ONETIME ONE Stop: 09/15/19 12:59 Last Admin: 09/15/19 10:00 Dose: 25 mls/hr Lidocaine HCl (Xylocaine 2% Jelly) 10 ml MUCMEM ONETIME ONE Stop: 09/15/19 03:16 Last Admin: 09/15/19 03:32 Dose: 10 ml Lisinopril (Prinivil) 10 mg PO DAILY [facility] Last Admin: 09/16/19 08:42 Dose: 10 mg Spironolactone (Aldactone) 100 mg PO ONETIME ONE Stop: 09/15/19 02:47 Last Admin: 09/15/19 03:06 Dose: 100 mg - Exam General: Reports: Alert, Oriented HEENT: Reports: Pupils Equal, Pupils Reactive, EOMI, Mucous Membr. Moist/[place] Neck: Reports: Supple Lungs: Reports: Clear to Auscultation, Normal Respiratory Effort Cardiovascular: Reports: Regular Rate, Regular Rhythm GI/Abdominal Exam: Other (distension improved with the drainage of the fluid from the abd.) Back Exam: Reports: Normal Inspection Extremities: Normal Inspection Skin: Reports: Warm, Dry, Intact Neurological: Reports: No New Focal Deficit Psy/Mental Status: Reports: Alert
[2019-09-16 15:16] VITALS: BP 94/46; PULSE 62
[2019-09-17] MEDS ORDERED: Lisinopril 2.5 MG Tab PO SCH (09:00)
--- NOTE | 2019-09-17 09:50 | PROC ---
DATE OF PROCEDURE: 09/15/2019 SURGEON: Glen Fontana MD HISTORY: Scott is a 59-year-old male who has a history of cirrhosis of the liver, hepatitis C, comes in because of abdominal fluid. Yesterday, we tapped about 3000 mL of fluid and he accumulated significant amount of fluid again and another paracentesis of peritoneal fluid was done today as well. PREOPERATIVE DIAGNOSIS: Peritoneal fluid. POSTOPERATIVE DIAGNOSIS: Peritoneal fluid removed. DIAGNOSIS: Hepatitis C with cirrhosis of the liver. DESCRIPTION OF PROCEDURE: The standard sterile technique was used. The area was cleaned on the left side of the abdomen after had been marked by ultrasound. We then cleaned the area with ChloraPrep and then used a 1% lidocaine with without Adrenaline. 8 mL were used to anesthetize the skin. #11 blade was placed through the skin to separate the skin. Then, a catheter was placed through there and placed into the abdominal cavity. I then removed through suction technique 8000 mL of peritoneal fluid. The patient tolerated the procedure well. I will discharge him home today and will see him in the office in 1 week. His platelets were low. This will be followed through as an outpatient. Glen Fontana MD /[id number]
== END 2019-09-16 17:50 | disposition home or self-care (01) | DRG 433 ==
LOC: JP.ED 02:03 → JP.ICU 03:22 → JP.MS 08:49 → UNDODISIN 09-16 14:45
PROVIDERS: ADMIT Internal Medicine; ATTEND Internal Medicine
PROC: 0W9G3ZZ Drainage of Peritoneal Cavity, Percutaneous Approach (ICD-10-PCS; principal; 2019-09-15)
DX: K74.60 Unspecified cirrhosis of liver (principal); R18.8 Other ascites; H54.7 Unspecified visual loss; I48.91 Unspecified atrial fibrillation; I25.10 Atherosclerotic heart disease of native coronary artery without angina pectoris; I10 Essential (primary) hypertension; K21.9 Gastro-esophageal reflux disease without esophagitis; F90.9 Attention-deficit hyperactivity disorder, unspecified type; F41.9 Anxiety disorder, unspecified; F32.9 Major depressive disorder, single episode, unspecified; F17.210 Nicotine dependence, cigarettes, uncomplicated; D69.6 Thrombocytopenia, unspecified; Z79.899 Other long term (current) drug therapy; I25.2 Old myocardial infarction; Z87.442 Personal history of urinary calculi; Z90.49 Acquired absence of other specified parts of digestive tract; Z98.890 Other specified postprocedural states
CPT/HCPCS: 36415; 51702; 80053; 80305-QW; 81001; 85025; 85610; 96374; 99285-25; A9270-GY; J1170; J1940; P9047